=== PATIENT | female | born 1950 | race Caucasian/White ===

== ENCOUNTER 2019-06-04 05:56 | Inpatient (IN) ==
--- NOTE | 2019-05-23 10:27 | PAT Medication Instructions ---
Medication Instructions Date of Service May 23, 2019 Home Medications dicyclomine 20 mg PO DAILY PRN lorazepam [Ativan] 1 mg PO Q8H PRN aspirin [Aspir-81] 81 mg PO QAM gabapentin 300 mg PO TID losartan 25 mg PO QAM meclizine 12.5 mg PO BID PRN metoprolol succinate 50 mg PO QAM pantoprazole [Protonix] 40 mg PO BID sertraline [Zoloft] 50 mg PO QAM simvastatin 20 mg PO HS Citrucel (sucrose) 1 tbsp PO QAM DO NOT take the morning of surgery dicyclomine 20 mg PO DAILY PRN losartan 25 mg PO QAM Citrucel (sucrose) 1 tbsp PO QAM Take morning of surgery With a small sip of water, OTHERWISE NOTHING TO EAT OR DRINK AFTER MIDNIGHT: lorazepam [Ativan] 1 mg PO Q8H PRN (if needed) gabapentin 300 mg PO TID meclizine 12.5 mg PO BID PRN (if needed) metoprolol succinate 50 mg PO QAM pantoprazole [Protonix] 40 mg PO BID sertraline [Zoloft] 50 mg PO QAM Take evening before surgery dicyclomine 20 mg PO DAILY PRN (if needed) lorazepam [Ativan] 1 mg PO Q8H PRN (if needed) gabapentin 300 mg PO TID meclizine 12.5 mg PO BID PRN (if needed) pantoprazole [Protonix] 40 mg PO BID simvastatin 20 mg PO HS Other Notes If you have any questions please call us at [phone] or [phone] or [phone] or [phone]
--- NOTE | 2019-05-23 10:33 | Anesthesiology Consultation ---
Date of Service May 23, 2019 Assessment & Plan (1) Encounter for pre-operative examination: Check BSG AM DOS Chart Review Chart Review: Acceptable Risk for Surgery and Patient seen in Pre Admission Testing Teaching & Discussion Pre-Anesthesia Teaching/Discussion Notes: Instructed NPO after midnight before surgery,except medications with 15 cc of water. Medication instructions provided according to the PAT guidelines. History Surgery Operation Date: 06/04/19 14:00 Proposed Procedures p L5-S1 Posterior Lumbar Interbody Fusion - Hermelindo Neves DO Height/Weight Height: 5 ft 4 in Weight: 77.4 kg Allergies Allergy/AdvReac Type Severity Reaction Status Date / Time latex Allergy Intermediate rash, Verified 05/23/19 10:45 blisters with "latex bandaids" Sulfa (Sulfonamide Allergy Intermediate rash Verified 05/23/19 10:32 Antibiotics) Quinolones Allergy Mild chest Verified 05/23/19 10:32 pain, nausea, vomiting, rash with cipro/ + tachycardia Iodinated Contrast- Oral and Allergy Unknown nausea, Verified 05/23/19 10:32 IV Dye vomiting, diarrhea ciprofloxacin [From Cipro] Allergy chest Verified 05/23/19 10:32 pain, nausea, vomiting, rash nickel Allergy redness, Verified 05/23/19 10:32 itching metals Allergy lip Uncoded 05/23/19 10:32 tingling with "metal in lipstick" per skin testing Additional Notes: *Surgeon/OR made aware of nickel allergy* Medications Home Medications Medication Instructions Recorded Confirmed Last Taken dicyclomine 20 mg PO DAILY PRN #0 06/16/09 05/21/19 Unknown lorazepam [Ativan] 1 mg PO Q8H PRN #0 06/16/09 05/21/19 10/04/18 22:00 aspirin [Aspir-81] 81 mg PO QAM #0 03/31/10 05/21/19 10/04/18 08:00 gabapentin 300 mg PO TID 06/24/18 05/21/19 10/05/18 07:00 losartan 25 mg PO QAM 06/24/18 05/21/19 10/04/18 08:00 meclizine 12.5 mg PO BID PRN 06/24/18 05/21/19 Unknown metoprolol succinate 50 mg PO QAM 06/24/18 05/21/19 10/05/18 07:00 pantoprazole [Protonix] 40 mg PO BID 06/24/18 05/21/19 10/05/18 07:00 sertraline [Zoloft] 50 mg PO QAM 06/24/18 05/21/19 10/05/18 07:00 simvastatin 20 mg PO HS 06/24/18 05/21/19 10/05/18 07:00 Citrucel (sucrose) 1 tbsp PO QAM 09/21/18 05/21/19 Unknown Past Medical History Medical History Dyslipidemia Anxiety Hypertension Chronic back pain RLE radiculopathy Colitis Depression GERD (gastroesophageal reflux disease) controlled Osteoarthritis Pre-diabetes Vertigo Exercise / Class Metabolic Activity III < 4 Walking/Shop/Light housework Past Family History Family History Mother Family history of diabetes mellitus Son Family history of diabetes mellitus Other Heart disease Past Surgical History Surgical History H/O: hysterectomy total History of back surgery multiple; most recent L5-S1 decompression: 10/05/18: Grade view 1, MAC#3, ETT 7.5 at [facility] History of cardiac cath 2013= no stents Hx of tubal ligation Past Anesthesia History No Hx of Anesthesia Complications and No Family Hx of Anesthesia Complications History of PONV No Hx of PONV and No Hx of Motion Sickness Social History Smoking Status: Former smoker Do You Dip or Chew Tobacco: No Smoking End Date: Quit 24+ years ago Hx Alcohol Use: No Hx Substance Use: No Review of Systems URI symptoms improving. Patient denies chest pain, shortness of breath, cough, wheezing, palpitations. Physical Exam Vital Signs VITALS BP 152/62 P 54 TEMP 98.3 SP02 93%RA RESP 20 PHYSICAL Full neck and c-spine range of motion. Full TMJ range of motion. TMD 3 finger breaths Mallampati Score 2 Dentition: full dentures upper; missing lower molars Lungs: clear throughout to auscultation Cardiac: regular rate and rhythm, no murmurs noted Spine: normal Carotid arteries: negative bruit Extremities: no edema Testing Laboratory Results 05/23/19 10:46 05/23/19 10:46 PT 10.7 Seconds (9.0-12.0) 05/23/19 10:46 INR 1.0 (0.9-1.1) 05/23/19 10:46 APTT 23.4 Seconds (21.0-31.0) 05/23/19 10:46 Blood Type O Positive 05/23/19 10:46 Antibody Screen NEGATIVE 05/23/19 10:46 Electrocardiogram Date: 09/22/18 Findings: + SB @ (58) Chest X-Ray Date: 09/22/18 Findings: + NAD Echocardiogram Date: 12/16/16 LVEF 59%. No RWMA. Mild AR. Mild MR. Grade I DD. Stress Test Date: 10/02/14 Type: exercise Stress ECHO positive for inducible ischemia. Inducible HK of mid/apical whit[place]. Ischemic EKG changes. EF 55-60%. Grade I DD. Moderate AR. Mild MR. 7.0 METS. 92% MPHR. (subsequent cardiac cath done 10/11/14) Cardiac Catheterization Date: 10/11/14 Coronary arteries are angiographically normal. The tortuosity of the coronary arteries are suggestive of hypertensive heart disease. LVEF 50-70%. Medical management and better BP control recommended.
[2019-05-23 12:28] LABS: Basophils # (auto) 0.02 K/uL (0-0.2); Basophils % (auto) 0.2 %; Eosinophils # (auto) 0.15 K/uL (0-0.5); Eosinophils % (auto) 1.9 %; Hematocrit (blood only) 38.1 % (37-47); Hemoglobin 12.1 g/dL (12.0-16.0); Immature Granulocytes # (auto) 0.04 K/uL (0.00-0.02); Immature Granulocytes % (auto) 0.5 %; Lymphocytes # (auto) 1.61 K/uL (1.2-3.4); Mean Corpuscular Hgb Conc 31.8 g/dL (32-36); Mean Corpuscular Volume 84.7 fL (80-100); Mean Platelet Volume 11.5 fL (7.4-10.4); Monocytes # (auto) 0.69 K/uL (0.11-0.59); Monocytes % (auto) 8.6 %; Neutrophils # (auto) 5.55 K/uL (1.4-6.5); Neutrophils % (auto) 68.8 %; Platelet Count 136 K/uL (130-400); RDW Coefficient of Variation 14.6 % (11.5-14.5); RDW Standard Deviation 45.8 fL (36.4-46.3); White Blood Count 8.06 K/uL (4.8-10.8)
[2019-05-23 12:46] LABS: Partial Thromboplastin Ratio 0.9; Partial Thromboplastin Time 23.4 Seconds (21.0-31.0); Prothrombin Time 10.7 Seconds (9.0-12.0)
[2019-05-23 13:34] LABS: BUN Creatinine Ratio 17.1 (10-20); Calcium 8.5 mg/dl (8.5-10.1); Creatinine Clr Calc Pharmacy 58.9 ml/min; Est GFR (African American) 74.2; Potassium 4.2 mmol/L (3.5-5.1)
[2019-06-04] MEDS ORDERED: LR 15ML/HR IV SCH (06:00)
[2019-06-04] MEDS ORDERED: ACETAMINOPHEN 1000 MG/100 ML IV IV SCH (06:00)
[2019-06-04] MEDS ORDERED: SODIUM CHLORIDE 0.9% 1,000 ML IV SCH (06:00)
[2019-06-04] MEDS ORDERED: CEFAZOLIN 2000MG 2,000 MG/15 ML SYR IV SCH (06:00)
[2019-06-04] MEDS ORDERED: PROPOFOL IV EMULSION 10 MG/ML 20 ML VIAL IV ONE (06:49)
[2019-06-04] MEDS ORDERED: fentaNYL citrate 100 MCG/2 ML VIAL ONE (06:49)
[2019-06-04] MEDS ORDERED: LIDOCAINE HCL 2% 2 ML VIAL/AMP(20MG/ML) INFIL ONE (06:49)
[2019-06-04] MEDS ORDERED: MoRPHine SULFATE PF 1 MG/ML 10 ML AMP/VIAL ONE (06:49)
[2019-06-04] MEDS ORDERED: MIDAZOLAM HCL 1 MG/ML 2ML VIAL ONE (06:49)
[2019-06-04] MEDS ORDERED: ONDANSETRON INJ 2 MG/ML 2 ML VIAL ONE (06:49)
[2019-06-04] MEDS ORDERED: VANCOMYCIN HCL 1000MG/20ML VIAL ONE (06:55)
[2019-06-04] MEDS ORDERED: GELATIN SPONGE SZ 100 ONE (06:55)
[2019-06-04] MEDS ORDERED: THROMBIN FOR SOLN 20000 UNIT KIT ONE (06:55)
[2019-06-04] MEDS ORDERED: BUPIVACAINE/EPINEPHRINE 0.5% MPF 1:200,000 30 ML VIAL ONE ×2 (06:55→07:06)
[2019-06-04] MEDS ORDERED: BACITRACIN INJ 50,000 UNIT VIAL ONE (06:56)
[2019-06-04] MEDS ORDERED: KETAMINE HCL INJ 50 MG/ML 10 ML VIAL ONE (07:01)
--- NOTE | 2019-06-04 07:11 | History & Physical Bridge Note ---
Date of Service June 04, 2019 History & Physical Bridge Note I have examined the patient, reviewed the History & Physical and in the interval since the performance of the History & Physical I have noted the following changes of clinical significance: no changes noted
[2019-06-04] MEDS ORDERED: HYDROmorphone INJ 1 MG/ML SYRINGE IV PRN (07:42)
[2019-06-04] MEDS ORDERED: ePHEDrine sulfate 50 MG/ML AMP IV PRN (07:42)
[2019-06-04] MEDS ORDERED: fentaNYL citrate 100 MCG/2 ML VIAL IV PRN (07:42)
[2019-06-04] MEDS ORDERED: ONDANSETRON INJ 2 MG/ML 2 ML VIAL IV PRN (07:42)
[2019-06-04] MEDS ORDERED: ATROPINE SULFATE 0.1 MG/ML 10ML SYR IV PRN (07:42)
[2019-06-04] MEDS ORDERED: NEOSTIGMINE METHYLSULFATE 5 MG/5 ML SYR ONE (08:10)
[2019-06-04] MEDS ORDERED: GLYCOPYRROLATE 0.2 MG/ML VIAL ONE (08:10)
--- NOTE | 2019-06-04 09:42 | Fluoroscopy Report ---
FL spine 1V any level CLINICAL HISTORY: L5-S1 PSF AND INTERBODY COMPARISON STUDY: 10/05/2018 FLUOROSCOPY TIME: 9 seconds. NUMBER OF FLUOROSCOPIC IMAGES: 1 FINDINGS: A single intraoperative lateral fluoroscopic spot film of the lumbar spine is provided for interpretation. There are posterior skin retractors. There is a sponge marker visualized posteriorly. There are postsurgical changes of an L5-S1 discectomy and interbody fusion. There are L5 and S1 pedi juan screws. IMPRESSION: Intraoperative fluoroscopic spot image as described above. Electronically signed by: Qamar Miller M.D. 06/04/2019 9:41 AM
--- NOTE | 2019-06-04 10:04 | Post Operative Brief Note ---
PG Immediate Post Op with CF Date of Surgery June 04, 2019 Pre & Post Diagnosis Operation Date: 06/04/19 07:30 Pre-Op Diagnosis: Disc Herniation Post-Op Diagnosis: Disc Herniation Procedure Operation Date: 06/04/19 07:30 Actual Procedures p L5-S1 Posterior Lumbar Interbody Fusion(Not Applicable) - Hermelindo Neves DO Surgeon Hermelindo Neves DO Supervisor Agency Appointments raimundo Estimated Blood Loss 150 Findings Consistent with Post-Op Diagnosis Specimens Specimen Description: none Drains Elizabeth Catheter and Hemovac Drain Disposition Accompanied Patient To Recovery: Yes Overlapping Procedure I was immediately available: during the entire case.
--- NOTE | 2019-06-04 10:24 | Operative Report ---
Post Operative Report Pre & Post Diagnosis Operation Date: 06/04/19 07:30 Pre-Op Diagnosis: Disc Herniation Post-Op Diagnosis: Disc Herniation Procedure Operation Date: 06/04/19 07:30 Actual Procedures p L5-S1 Posterior Lumbar Interbody Fusion(Not Applicable) - Hermelindo Neves DO Surgeon Hermelindo Neves DO Exhibits Manager raimundo Estimated Blood Loss 150 Findings Consistent with Post-Op Diagnosis Specimens none Complications none Description of Procedure PLIF L5-S1 I attest to the content of the Intraoperative Record and any orders documented therein. Any exceptions are noted below.
--- NOTE | 2019-06-04 10:51 | Anesthesiology Progress Note ---
Date of Service June 04, 2019 Anesthesia Post Procedure Vital Signs Vital Signs: Temp Pulse Pulse Resp BP BP Pulse Ox 06/04/19 10:40 70 14 148/54 H 100 06/04/19 10:30 71 16 139/55 L 100 06/04/19 10:20 77 19 146/66 H 100 06/04/19 10:13 36.2 C L 86 19 133/61 97 06/04/19 07:12 36.5 C 60 20 171/71 H 96 Pain Intensity Lower Back: Pain Intensity: 5 Transfer of Care Handoff Completed per policy Notes Mental Status: alert / awake / arousable and participated in evaluation Patient Amnestic to Procedure: Yes Nausea / Vomiting: adequately controlled Pain: adequately controlled Airway Patency, RR, SpO2: stable & adequate BP & HR: stable & adequate Hydration State: stable & adequate Anesthetic Complications: no major complications apparent and Pt Satisfied with anesthetic care
[2019-06-04] MEDS ORDERED: MAGNESIUM HYDROXIDE SUSP 30 ML UDC PO PRN (11:20)
[2019-06-04] MEDS ORDERED: NALOXONE HCL 0.4 MG/1 ML VIAL/CARP IV PRN (11:20)
[2019-06-04] MEDS ORDERED: BISACODYL 10 MG SUPP PR PRN (11:20)
[2019-06-04] MEDS ORDERED: DO NOT ADMINISTER PNEUMOCOCCAL VACCINE PRN (11:20)
[2019-06-04] MEDS ORDERED: SODIUM CHLORIDE 0.9% 1000ML 1,000 ML IV SCH (11:20)
[2019-06-04] MEDS ORDERED: ACETAMINOPHEN 500 MG TAB PO PRN (11:20)
[2019-06-04] MEDS ORDERED: DICYCLOMINE HCL 20 MG TAB PO PRN (11:20)
[2019-06-04] MEDS ORDERED: LORazepam 0.5 MG/1 ML VIAL IV PRN (11:20)
[2019-06-04] MEDS ORDERED: DO NOT ADMINISTER FLU VACCINE PRN (11:20)
[2019-06-04] MEDS ORDERED: MECLIZINE 12.5 MG TAB PO PRN (11:20)
[2019-06-04] MEDS ORDERED: PROMETHAZINE HCL 12.5 MG in SODIUM CHLORIDE 0.9% 50 ML IV PRN (11:20)
[2019-06-04] MEDS ORDERED: SOD PHOSPHATE/SOD BIPHOSPHATE ENEMA 132 ML BTL PR PRN (11:20)
[2019-06-04] MEDS ORDERED: METOCLOPRAMIDE HCL INJ 5 MG/ML 2 ML VIAL IV PRN (11:20)
[2019-06-04] MEDS ORDERED: HYDROmorphone INJ 0.5 MG/0.5 ML SYR IV PRN (11:20)
[2019-06-04] MEDS ORDERED: ACETAMINOPHEN 1,000 MG/100 ML VIAL IV PRN (11:20)
[2019-06-04] MEDS ORDERED: ONDANSETRON 4 MG TAB PO PRN (11:20)
[2019-06-04] MEDS: OXYCODONE HCL IR 5 MG TAB (IMMEDIATE RELEASE) PO PRN ×3 (13:33→23:48)
[2019-06-04] MEDS ORDERED: OXYCODONE HCL IR 5 MG TAB (IMMEDIATE RELEASE) ONE (13:33)
[2019-06-04] MEDS: GABAPENTIN 300 MG CAP PO SCH ×2 (13:34→20:24)
[2019-06-04] MEDS: CEFAZOLIN 2000MG 2,000 MG/15 ML SYR IV SCH ×2 (15:45→23:48)
[2019-06-04] MEDS: DOCUSATE SODIUM/SENNA 50/8.6MG TAB PO SCH (20:25)
[2019-06-04] MEDS: PANTOprazole 40 MG TAB PO SCH (20:25)
[2019-06-04] MEDS: SIMVASTATIN 20 MG TAB PO SCH (20:25)
[2019-06-05] MEDS: OXYCODONE HCL IR 5 MG TAB (IMMEDIATE RELEASE) PO PRN ×2 (03:50→08:14)
[2019-06-05] MEDS: POLYETHYLENE (MIRALAX) 17 GM PACK PO SCH ×4 (05:37→23:39)
[2019-06-05] MEDS: METOPROLOL SUCC 50MG EXT REL TAB PO SCH (08:15)
[2019-06-05] MEDS: SERTRALINE HCL 100 MG TABLET PO SCH (08:15)
[2019-06-05] MEDS: GABAPENTIN 300 MG CAP PO SCH ×3 (08:15→20:49)
[2019-06-05] MEDS: PSYLLIUM 58.6% POWDER PACKET PO SCH (08:16)
[2019-06-05] MEDS: LOSARTAN POTASSIUM 25 MG TAB PO SCH (08:16)
[2019-06-05] MEDS: ASPIRIN 81 MG ECTAB PO SCH (08:16)
[2019-06-05] MEDS: PANTOprazole 40 MG TAB PO SCH ×2 (08:16→20:49)
[2019-06-05] MEDS: ONDANSETRON INJ 2 MG/ML 2 ML VIAL IV PRN ×2 (10:44→17:20)
--- NOTE | 2019-06-05 14:20 | Orthopedic Progress Note ---
Date of Service June 05, 2019 Subjective Patient alert and oriented. Minimal complaints of pain. Taking p.o. Results & Data Vital Signs (Past 12 Hours) Vital Signs Temp Pulse Resp BP BP Pulse Ox 06/05/19 12:45 90 06/05/19 11:35 111/67 06/05/19 11:04 36.4 C L 68 18 103/63 93 06/05/19 10:46 74 20 95/58 L 92 06/05/19 07:24 37.4 C 84 16 119/69 96 06/05/19 03:19 37.2 C 81 16 116/69 91 PG Care Time/CCT Total # of Minutes Spent Total Time Spent with Patient: Total time spent is greater than 50% in coordination of care (as documented) at patient's floor/unit and/or counseling patient:
[2019-06-05] MEDS: SIMVASTATIN 20 MG TAB PO SCH (20:50)
[2019-06-05] MEDS: DOCUSATE SODIUM/SENNA 50/8.6MG TAB PO SCH (20:50)
[2019-06-06] MEDS: POLYETHYLENE (MIRALAX) 17 GM PACK PO SCH ×4 (05:58→23:37)
[2019-06-06] MEDS: OXYCODONE HCL IR 5 MG TAB (IMMEDIATE RELEASE) PO PRN ×3 (07:17→23:39)
[2019-06-06] MEDS: SERTRALINE HCL 100 MG TABLET PO SCH (07:33)
[2019-06-06] MEDS: GABAPENTIN 300 MG CAP PO SCH ×3 (07:33→20:20)
[2019-06-06] MEDS: LOSARTAN POTASSIUM 25 MG TAB PO SCH (07:34)
[2019-06-06] MEDS: ASPIRIN 81 MG ECTAB PO SCH (07:34)
[2019-06-06] MEDS: PANTOprazole 40 MG TAB PO SCH ×2 (07:34→20:20)
[2019-06-06] MEDS: PSYLLIUM 58.6% POWDER PACKET PO SCH (07:35)
[2019-06-06] MEDS: METOPROLOL SUCC 50MG EXT REL TAB PO SCH (07:36)
--- NOTE | 2019-06-06 08:11 | Discharge Summary ---
SUBJECTIVE: She is alert, oriented this morning. Moderate complaints of pain, no chest pain, shortness of breath. She has more incisional back pain. No neurological deficit. The neurological deficit has been alleviated. OBJECTIVE: Vital signs stable. ASSESSMENT: Status post reconstructive spine surgery. PLAN: We will discharge her home later today. She has medications on her chart for [place] and a rolling walker, also some Toradol. She was given instruction precautions here today morning. She has instructions from the office, should see us back in the office in approximately 12 days.
[2019-06-06] MEDS: DOCUSATE SODIUM/SENNA 50/8.6MG TAB PO SCH (20:19)
[2019-06-06] MEDS: SIMVASTATIN 20 MG TAB PO SCH (20:20)
[2019-06-07] MEDS: POLYETHYLENE (MIRALAX) 17 GM PACK PO SCH ×2 (05:30→11:52)
[2019-06-07] MEDS: PSYLLIUM 58.6% POWDER PACKET PO SCH (08:17)
[2019-06-07] MEDS: SERTRALINE HCL 100 MG TABLET PO SCH (08:21)
[2019-06-07] MEDS: ASPIRIN 81 MG ECTAB PO SCH (08:21)
[2019-06-07] MEDS: METOPROLOL SUCC 50MG EXT REL TAB PO SCH (08:21)
[2019-06-07] MEDS: LOSARTAN POTASSIUM 25 MG TAB PO SCH (08:21)
[2019-06-07] MEDS: OXYCODONE HCL IR 5 MG TAB (IMMEDIATE RELEASE) PO PRN (08:22)
[2019-06-07] MEDS: GABAPENTIN 300 MG CAP PO SCH ×2 (08:22→13:31)
[2019-06-07] MEDS: PANTOprazole 40 MG TAB PO SCH (08:22)
--- NOTE | 2019-06-07 12:56 | Operative Report ---
DATE OF OPERATION: 06/04/2019 PREOPERATIVE DIAGNOSIS: Degenerative disc disease L5-S1, disc herniation L5-S1, recurrent. POSTOPERATIVE DIAGNOSIS: Degenerative disc disease L5-S1, disc herniation L5-S1, recurrent. PROCEDURES: Include: 1. Posterior approach lumbar spine, decompression laminectomy, removal of the L5 lamina, foraminotomy, partial facetectomy. 2. Complete discectomy at L5-S1 and a posterior lumbar interbody fusion, L5-S1. 3. Pedicle screw instrumentation, L5-S1. 4. Posterolateral fusion, L5-S1. SURGEON: Hermelindo Neves DO DCS ENGINEER: Alejandro Maya PA-C. COMPLICATIONS: There were no complications. DESCRIPTION OF PROCEDURE: The patient was identified in the preop holding area and the incision site marked. A bridge note was also obtained. The patient was safely brought into the operating room. A general intubated anesthetic provided to the patient. Elizabeth catheter administered as well. She was placed prone, scrubbed, prepped and draped sterile. I made a skin incision, fascial incision, put in deep self-retaining retractor. We carefully meticulously dissected out the dural structures. I was able to find on the right hand side the recurrent disc herniation. I retracted the S1 nerve root and dura in a medial direction. We could see the entire disc herniation. This was excised first with a 15 scalpel blade, various sized pituitary rongeurs. We completely evacuated the L5-S1 disc. I was then able to get pedicle screws safely into L5 and sacrum on the left and L5 and sacrum on the right. We also then were able to put an interbody device at L5-S1 on the right hand side, packed with bone. The cross table lateral radiographs were satisfactory. We did some compression locked down the screws. We then irrigated thoroughly, placed some bone graft out of the transverse processes between L5 and S1. We placed some Gelfoam over the dural structures, placed some vancomycin powder deep, closed fascia to fascia with 1 Vicryl suture, more vancomycin powder, 2-0 Vicryl closure on the subcuticular layer, and 3-0 nylon on the skin surface. Sterile dressings applied. The patient returned supine and extubated. The patient returned safely to recovery room in satisfactory and stable condition. There were no complications. ESTIMATED BLOOD LOSS: 150 mL. IMPLANTS USED: By the [employer]. Bone graft used was autograft from the patient's own bone and lamina structures morcellized along with demineralized bone matrix. Sponge and needle count correct. No complications. I attest to the content of the Intraoperative Record and any orders documented therein. Any exception s are noted below.
--- NOTE | 2019-06-15 10:40 | History and Physical Report ---
DATE OF ADMISSION: 06/04/2019 I was ____ to do an H and P. I think it was been done because we operated on her and we cannot get the patient back to surgery without an H and P, so there might be some sort of mistake. She is listed as Lexii, but goes by K, so there may be some name discrepancy. In any event, I am dictating over. CHIEF COMPLAINT: Back pain, lower extremity difficulty, paresthesias, numbness and tingling. HISTORY OF PRESENT ILLNESS: The patient is delightful. She is 69. She has ongoing back and lower extremity difficulty, paresthesias, associated weakness. She has a disk herniation lumbar spine with spinal instability. She is set up for fairly semi-urgent surgery. PAST MEDICAL HISTORY: Mitral valve prolapse, anxiety, high cholesterol, hypertension. PAST SURGICAL HISTORY: Hysterectomy, lumbar spine surgery. ALLERGIES: SULFA, CIPRO. SOCIAL HISTORY: . No alcohol, tobacco. REVIEW OF SYSTEMS: Twelve system review negative for fevers, sweats, chills. Ears, nose, and throat clear. No chest pain, palpitations. No nausea, vomiting. She has joint pain, musculoskeletal pain. MEDICATIONS: Numerous. They are scanned in the computer and listed. OBJECTIVE: GENERAL: She is 5 feet 3 inches, 171. VITAL SIGNS: Blood pressure 130/80, pulse 80, respiratory rate 16. HEENT: Pupils react to light and accommodation. Ear, nose and throat clear. CARDIAC: Normal S1, S2. ABDOMEN: Soft, nontender. Good bowel sounds. NEUROLOGIC: She has 5/5 strength, good sensation and motor ability on the left. Weakness and paresthesias on straight leg raising on right. Weakness with dorsiflexion, plantarflexion and pretty profound decreased range of motion. IMAGING: X-rays demonstrate instability and disk herniation lumbar spine. PROCEDURE: Posterior lumbar interbody fusion, lumbar spine.
== END 2019-06-07 14:16 | disposition home health service (06) | DRG 455 ==
LOC: ASU 05:56 → 3E 10:17

== ENCOUNTER 2019-08-06 18:57 | Inpatient (IN) ==
[2019-08-06] MEDS ORDERED: SODIUM CHLORIDE 0.9% 1000ML 1,000 ML IV ONE (19:48)
[2019-08-06] MEDS ORDERED: ACETAMINOPHEN 1,000 MG/100 ML VIAL IV STA (19:54)
[2019-08-06] MEDS ORDERED: FAMOTIDINE 20MG IV PUSH 20 MG/5 ML SYR IV STA (19:54)
[2019-08-06] MEDS ORDERED: MoRPHine SULFATE 10 MG/ML CARP/VIAL IV STA (19:54)
--- NOTE | 2019-08-06 20:29 | XRay Report ---
XR chest 1V portable CLINICAL HISTORY: 69 years-old Female presenting with abd pain, GIB. TECHNIQUE: Portable upright AP view of the chest was obtained. COMPARISON: 09/22/2018. FINDINGS: Atherosclerosis of the aortic arch. Cardiac silhouette enlarged. No focal opacity. No large effusion or pneumothorax. Osseous structures normal. Upper abdomen normal. IMPRESSION: 1. Cardiomegaly. No other convincing evidence of acute cardiopulmonary disease. Electronically signed by: Caleb Carver M.D. 08/06/2019 8:27 PM
[2019-08-06 20:30] LABS: Mean Corpuscular Hgb Conc 31.3 g/dL (32-36)
[2019-08-06 20:43] LABS: INR 1.1 (0.9-1.1); Prothrombin Time 11.3 Seconds (9.0-12.0)
[2019-08-06 20:51] LABS: iSTAT Creatinine 0.9 mg/dl (0.6-1.3); iSTAT Hemoglobin 11.2 g/dl (12.0-16.0); iSTAT Ionized Calcium 1.14 mmol/l (1.12-1.32); iSTAT Potassium 3.8 mEq/L (3.3-5.0)
[2019-08-06 20:53] LABS: Appearance Urine Cloudy (Clear); Bacteria Urine Automated Negative (Negative); Blood Urine 1+ (Negative); Epithelial Cell Urine Auto >30 /lpf (0-5); Glucose Urine UA Negative (Negative); Ketones Urine 1+ (Negative); Leukocyte Esterase Urine Trace (Negative); Nitrite Urine Positive (Negative); Protein Urine 1+ (Negative); Specific Gravity Urine 1.028 (1.000-1.030); Urobilinogen Urine Negative (Negative)
[2019-08-06 20:57] LABS: Bilirubin Urine Negative (Negative); Color Urine Amber; Ictotest Urine Negative (Negative)
[2019-08-06 20:59] LABS: Hematocrit (blood only) 35.2 % (37-47); Mean Corpuscular Hemoglobin 24.2 pg (25-34); Mean Corpuscular Volume 77.5 fL (80-100); RDW Coefficient of Variation 14.9 % (11.5-14.5); RDW Standard Deviation 42.4 fL (36.4-46.3); Red Blood Count 4.54 M/uL (4.2-5.4); White Blood Count 16.69 K/uL (4.8-10.8)
[2019-08-06 21:11] LABS: Alanine Aminotransferase 17 U/L (12-78); Albumin Level 3.7 gm/dl (3.4-5.0); Aspartate Aminotransferase 13 U/L (15-37); BUN Creatinine Ratio 13.9 (10-20); Blood Urea Nitrogen 14 mg/dl (7-18); Calcium 9.2 mg/dl (8.5-10.1); Carbon Dioxide 23 mmol/L (21-32); Chloride 102 mmol/L (98-107); Creatinine Clr Calc Pharmacy 52.2 ml/min; Est GFR (African American) 64.7; Est GFR (Non-African American) 55.8; Glucose 147 mg/dl (70-99); Lipase 31 U/L (73-393); Magnesium 1.8 mg/dl (1.8-2.4); Potassium 3.6 mmol/L (3.5-5.1); Sodium 135 mmol/L (136-145)
[2019-08-06 21:16] LABS: Alkaline Phosphatase 97 U/L (45-117); Bilirubin,Total 1.7 mg/dl (0.2-1); Globulin 3.7 gm/dl (2.5-4.0); Phosphorus 1.9 mg/dl (2.5-4.9); Total Protein 7.4 gm/dl (6.4-8.2); Troponin I < 0.015 ng/ml (0-0.045)
[2019-08-06] MEDS ORDERED: IOVERSOL 100ml IV PRN (21:17)
[2019-08-06] MEDS ORDERED: methylPREDNISolone 125 MG/2 ML VIAL IV STA (21:28)
[2019-08-06] MEDS ORDERED: DiphenhydrAMINE HCL 50 MG/ML VIAL IV STA (21:28)
--- NOTE | 2019-08-06 22:13 | CT Scan Report ---
CT abd pelvis IV con only CLINICAL HISTORY: 69 years-old Female presenting with abd pain, hematochezia. TECHNIQUE: Multidetector CT of the abdomen and pelvis was performed after the administration of intra venous contrast. IV contrast: 92 mL of Optiray 320. One or more dose lowering techniques were used co nsistent with the principles of ALARA (as low as reasonably achievable), including automatic exposure control, mA or kV adjustment to individual patient size, and/or use of iterative reconstruction. COMPARISON: 06/24/2018. CT DOSE (mGy.cm): The estimated cumulative dose is 604.20 mGy.cm. FINDINGS: Relocation Commissioner topogram: Orthopedic hardware. Lung bases: Normal heart size. No pericardial or pleural effusion. Minimal dependent changes likely a telectasis. Liver: Normal morphology. Peripherally nodular enhancing lesion in the posterior right hepatic lobe l ikely hepatic hemangioma, measuring over 5 cm in diameter. Patent hepatic vasculature. Biliary: No intrahepatic or extrahepatic biliary ductal dilatation. Normal gallbladder. Pancreas: Normal. Spleen: Normal. Adrenal glands: Normal. Kidneys and ureters: Normal. No hydronephrosis. Bladder: Normal. Pelvic organs: Uterus surgically absent. Bowel: Mild diverticulosis of the distal sigmoid colon. Focal wall thickening of the proximal to mid sigmoid colon extending proximal to the level of the splenic flexure. Mild pericolonic inflammatory c hange. The remainder of the colon is preserved. The appendix is normal. No bowel obstruction. Peritoneal cavity: Trace free fluid in the left lower quadrant. No free intraperitoneal or extralumin al gas. Lymph nodes: No enlarged lymph nodes in the abdomen or pelvis. Vasculature: Atherosclerosis of the normal caliber abdominal aorta. IVC patent. Abdominal wall: Normal. Musculoskeletal: Posterior lumbar fusion hardware. IMPRESSION: 1. Extensive wall thickening and mild pericolonic inflammatory change involving the splenic flexure to the mid sigmoid colon. This is evidence of colitis, likely on an infectious basis given the distri bution. 2. Diverticulosis coli of the distal sigmoid colon. No evidence of diverticulitis. 3. Right hepatic lobe hemangioma measuring over 5 cm. Electronically signed by: Caleb Carver M.D. 08/06/2019 10:11 PM
[2019-08-06 22:46] LABS: Platelet Estimate Normal (Normal)
[2019-08-06] MEDS ORDERED: POTASSIUM PHOS 3 MMOL/1 ML INFUSION IV STA (23:14)
[2019-08-06] MEDS ORDERED: POTASSIUM PHOSPHATE 9 MMOL in SODIUM CHLORIDE 0.9% 250 ML IV STA (23:18)
--- NOTE | 2019-08-07 00:02 | Emergency Department Note ---
Entered by Lana Shrestha acting as a scribe for History of Present Illness General Chief complaint: Diarrhea Stated complaint: DIARRHEA,BLEEDING,CRAMPING Time Seen by Provider: 08/06/19 19:44 Source: patient History of Present Illness Provider complaint: Diarrhea Onset (ago): day(s) 1 Location: abdomen Radiation: non-radiation Maximum Pain Intensity: 8 Relieved By: + none Exacerbated By: + none The patient is a 69 year old female who presents to the Emergency Room with complaints of diarrhea that began last night. The patient states the symptoms do not radiate anywhere else on the body and is not relieved nor exacerbated by anything specific. The patient reports noticing blood and more recently black in her diarrhea. The patient mentioned that she had back surgery 4 months ago and has not recently been on antibiotics. Home Medications Home Medications Medication Instructions Recorded Confirmed Type dicyclomine 20 mg PO DAILY PRN #0 06/16/09 08/06/19 History lorazepam [Ativan] 1 mg PO Q8H PRN #0 06/16/09 08/06/19 History aspirin [Aspir-81] 81 mg PO QAM #0 03/31/10 08/06/19 History gabapentin 300 mg PO TID 06/24/18 08/06/19 History losartan 25 mg PO QAM 06/24/18 08/06/19 History meclizine 12.5 mg PO BID PRN 06/24/18 08/06/19 History metoprolol succinate 50 mg PO QAM 06/24/18 08/06/19 History pantoprazole [Protonix] 40 mg PO BID 06/24/18 08/06/19 History sertraline [Zoloft] 50 mg PO QAM 06/24/18 08/06/19 History simvastatin 20 mg PO HS 06/24/18 08/06/19 History Citrucel (sucrose) 1 tbsp PO QAM 09/21/18 08/06/19 History hydrocodone-acetaminophen [[place]] 1 tab PO Q6H PRN #40 tab 06/05/19 08/06/19 Rx ketorolac 10 mg PO Q8H PRN 08/06/19 08/06/19 History Allergies Allergy/AdvReac Type Severity Reaction Status Date / Time ciprofloxacin [From Cipro] Allergy Intermediate chest Verified 08/06/19 22:57 pain, nausea, vomiting, rash Iodinated Contrast Media Allergy Intermediate nausea, Verified 08/06/19 22:57 vomiting, diarrhea latex Allergy Intermediate rash, Verified 08/06/19 22:57 blisters with "latex bandaids" Quinolones Allergy Intermediate chest Verified 08/06/19 22:57 pain, nausea, vomiting, rash with cipro/ + tachycardia nickel Allergy Mild redness, Verified 08/06/19 22:57 itching Sulfa (Sulfonamide Allergy Mild rash Verified 08/06/19 22:57 Antibiotics) metals Allergy Severe lip Uncoded 08/06/19 22:57 tingling with "metal in lipstick" per skin testing Past Med/Surg History Medical History Dyslipidemia Anxiety Hypertension Chronic back pain RLE radiculopathy Colitis Depression GERD (gastroesophageal reflux disease) controlled Osteoarthritis Pre-diabetes Vertigo Surgical History Hx of cataract surgery (Acute) bilateral H/O: hysterectomy total History of back surgery multiple; most recent L5-S1 decompression: 10/05/18: Grade view 1, MAC#3, ETT 7.5 at [facility] History of cardiac cath 2013= no stents Hx of tubal ligation Family History Mother Family history of diabetes mellitus Son Family history of diabetes mellitus Other Heart disease Social History Preferred Language: Macedonian Communication Ability: Effective Silver Solderer Required: No Beliefs That Will Affect Care: None Current Living Situation: Spouse Current Living Situation Comment: [facility] Feels Safe at Home: Yes Safety Concerns: Feels Safe At This Time Smoking Status: Never smoker Second Hand Exposure: No ; Hx Alcohol Use: No Hx Substance Use: No Review of Systems See HPI for pertinent positives & negatives. and A total of 10 systems reviewed and were otherwise negative Physical Exam Vital Signs Vital Signs - 24 hr 08/06/19 19:08 08/06/19 20:42 08/06/19 20:44 Temperature 36.9 C Temperature Source Oral Sepsis Recent Fever Within 48 Hours No Sepsis Action Taken by Nursing No Action Required Pulse Rate 89 Pulse Rate [Finger] 73 Respiratory Rate 18 18 Respiratory Effort / Characteristics Non-Labored Respiratory Depth Normal Blood Pressure 153/76 H Blood Pressure [Left Arm] 165/64 H Blood Pressure Mean 101 Blood Pressure Mean [Left Arm] 97 Pulse Oximetry 98 99 99 Oxygen Delivery Method Room Air Room Air Room Air 08/06/19 22:53 Temperature Temperature Source Sepsis Recent Fever Within 48 Hours Sepsis Action Taken by Nursing Pulse Rate Pulse Rate [Finger] 64 Respiratory Rate 18 Respiratory Effort / Characteristics Respiratory Depth Blood Pressure Blood Pressure [Left Arm] 132/61 Blood Pressure Mean Blood Pressure Mean [Left Arm] 84 Pulse Oximetry 96 Oxygen Delivery Method Room Air GENERAL: Awake, alert, uncomfortable-appearing, in no distress HENT: Normocephalic, atraumatic. Oropharynx with dry mucous membranes and otherwise unremarkable. EYES: Normal conjunctiva. Sclera non-icteric. NECK: Supple. No nuchal rigidity. FROM. No JVD. RESPIRATORY: CTAB CARDIAC: Regular rate, normal rhythm. Extremities warm and well perfused. Pulses equal. ABDOMEN: Soft, non-distended. Generalized abdominal tenderness. No rebound or guarding. No masses. RECTAL: Scant brown stool that is guaiac negative and no gross melena or red blood. . MUSCULOSKELETAL: Chest examination reveals no tenderness. The back is symmetrical on inspection without obvious abnormality. There is no CVA tenderness to palpation. No joint edema. LOWER EXTREMITIES: Calves are equal size bilaterally and non-tender. No edema. No discoloration. NEURO: Normal sensorium. No sensory or motor deficits noted. SKIN: No rash or jaundice noted. Course 1950: Past medical records reviewed. The patient was evaluated in room B08. A complete history and physical exam was performed. Administered Medications Lactated Ringer's (Lr) 1,000 mls @ 80 mls/hr IV .[id number] ONE Stop: 08/07/19 14:13 Last Admin: 08/07/19 02:43 Dose: 80 mls/hr Documented by: [id number] Potassium Phosphate 21 mmol/ (Sodium Chloride) 507 mls @ 88 mls/hr IV ONE ONE Stop: 08/07/19 07:45 Last Admin: 08/07/19 02:43 Dose: 88 mls/hr Documented by: [id number] Insulin Aspart (Novolog Flexpen) 0 units SC ACHS TARSHA Stop: 09/06/19 01:43 Last Admin: 08/07/19 02:46 Dose: 2 units Documented by: [id number] Cosigned by: [id number] Discontinued Medications Diphenhydramine HCl (Benadryl) 25 mg IV NOW STA Stop: 08/06/19 21:29 Last Admin: 08/06/19 21:31 Dose: 25 mg Documented by: [id number] Sodium Chloride (Nss 1000ml) 1,000 mls @ 999 mls/hr IV .Q1H1M ONE Stop: 08/06/19 20:48 Last Infusion: 08/06/19 21:49 Dose: 0 mls/hr Documented by: [id number] Admin: 08/06/19 20:39 Dose: 999 mls/hr Documented by: [id number] Famotidine (Pepcid 20mg Iv Push) 20 mg in 5 mls @ 2.5 mls/min IV NOW STA Stop: 08/06/19 19:55 Last Admin: 08/06/19 20:39 Dose: 2.5 mls/min Documented by: [id number] Acetaminophen (Ofirmev) 1,000 mg in 100 mls @ 400 mls/hr IV NOW STA Stop: 08/06/19 20:08 Last Infusion: 08/06/19 21:06 Dose: 0 mls/hr Documented by: [id number] Admin: 08/06/19 20:39 Dose: 400 mls/hr Documented by: [id number] Potassium Phosphate 9 mmol/ (Sodium Chloride) 253 mls @ 88 mls/hr IV NOW STA Stop: 08/07/19 02:10 Last Infusion: 08/07/19 02:36 Dose: 0 mls/hr Documented by: [id number] Admin: 08/06/19 23:41 Dose: 88 mls/hr Documented by: [id number] Ceftriaxone Sodium (Rocephin) 1,000 mg in 50 mls @ 100 mls/hr IV NOW STA Stop: 08/07/19 00:39 Last Infusion: 08/07/19 01:23 Dose: 0 mls/hr Documented by: [id number] Admin: 08/07/19 00:50 Dose: 100 mls/hr Documented by: [id number] Ioversol (Optiray 320 100ml) 93 ml IV ONCE PRN PRN Reason: Interaction Checking Stop: 08/10/19 21:16 Last Admin: 08/06/19 21:52 Dose: 93 ml Documented by: [id number] Methylprednisolone (Solumedrol) 125 mg IV NOW STA Stop: 08/06/19 21:29 Last Admin: 08/06/19 21:31 Dose: 125 mg Documented by: [id number] Metronidazole (Flagyl) Confirm Administered Dose 500 mg IV .STK-MED ONE Stop: 08/07/19 00:42 Last Admin: 08/07/19 01:02 Dose: 500 mg Documented by: [id number] Morphine Sulfate (Morphine Sulfate) 8 mg IV NOW STA Stop: 08/06/19 19:55 Last Admin: 08/06/19 20:39 Dose: 8 mg Documented by: [id number] Potassium Phosphate (Potassium Phosphate Replace) 9 mmol IV NOW STA Stop: 08/06/19 23:15 Last Admin: 08/06/19 23:41 Dose: Not Given Documented by: [id number] Medical Decision Making Differential Diagnosis Differential diagnosis: Etiologies such as esophagitis, variceal bleed, [place], [place] tear, gastritis, peptic ulcer disease, AVM, inflammatory bowel disease, ischemia, diverticulosis, colitis, malignancy, coagulopathy, thrombocytopenia, fissure, hemorrhoid, epistaxis , as well as others were entertained. Medical Records Attestation: I reviewed the patient's medical records. Home Medications Current Medication List: was personally reviewed by me Laboratory Data Attestation: I reviewed the patient's lab results. Result diagrams: 08/07/19 04:01 08/06/19 20:19 Lab Results 08/06/19 08/06/19 08/06/19 Range/Units 20:19 20:19 20:19 WBC 16.69 H (4.8-10.8) K/uL RBC 4.54 (4.2-5.4) M/uL Hgb 11.0 L (12.0-16.0) g/dL POC Hgb (12.0-16.0) g/dl Hct 35.2 L (37-47) % POC Hct (37-47) % MCV 77.5 L (80-100) fL MCH 24.2 L (25-34) pg MCHC 31.3 L (32-36) g/dL RDW Std Deviation 42.4 (36.4-46.3) fL RDW Coeff of Kandis 14.9 H (11.5-14.5) % Plt Count (130-400) K/uL MPV (7.4-10.4) fL Platelet Estimate Normal (Normal) PT 11.3 (9.0-12.0) Seconds INR 1.1 (0.9-1.1) POC Sodium (135-144) mEq/L Sodium 135 L (136-145) mmol/L POC Potassium (3.3-5.0) mEq/L Potassium 3.6 (3.5-5.1) mmol/L POC Chloride (101-112) mEq/L Chloride 102 (98-107) mmol/L Carbon Dioxide 23 (21-32) mmol/L POC Total CO2 (24-31) mEq/l Anion Gap 10.0 (3-11) POC Anion Gap (16-25) mmol/L POC BUN (7-18) mg/dl BUN 14 (7-18) mg/dl Creatinine 1.03 (0.6-1.2) mg/dl POC Creatinine (0.6-1.3) mg/dl Est Cr Clr Drug Dosing 52.2 ml/min Est GFR ( Amer) 64.7 Est GFR (Non-Af Amer) 55.8 BUN/Creatinine Ratio 13.9 (10-20) Glucose 147 H (70-99) mg/dl POC Glucose (other) (70-99) mg/dl Calcium 9.2 (8.5-10.1) mg/dl POC Ioniz Calcium Em[place] (1.12-1.32) mmol/l Phosphorus 1.9 L (2.5-4.9) mg/dl Magnesium 1.8 (1.8-2.4) mg/dl Total Bilirubin 1.7 H (0.2-1) mg/dl AST 13 L (15-37) U/L ALT 17 (12-78) U/L Alkaline Phosphatase 97 (45-117) U/L Troponin I < 0.015 (0-0.045) ng/ml Total Protein 7.4 (6.4-8.2) gm/dl Albumin 3.7 (3.4-5.0) gm/dl Globulin 3.7 (2.5-4.0) gm/dl Albumin/Globulin Ratio 1.0 (0.9-2) Lipase 31 L (73-393) U/L Urine Color Urine Appearance (Clear) Urine pH (4.5-7.5) Ur Specific [place] (1.000-1.030) Urine Protein (Negative) Urine Glucose (UA) (Negative) Urine Ketones (Negative) Urine Blood (Negative) Urine Nitrite (Negative) Urine Bilirubin (Negative) Urine Urobilinogen (Negative) Ur Leukocyte Esterase (Negative) Urine WBC (Auto) (0-5) /hpf Urine RBC (Auto) (0-4) /hpf U Hyaline Cast (Auto) (0-5) /lpf U Epithel Cells (Auto) (0-5) /lpf Urine Bacteria (Auto) (Negative) Blood Type Antibody Screen 08/06/19 08/06/19 08/06/19 Range/Units 20:19 20: 20:33 WBC (4.8-10.8) K/uL RBC (4.2-5.4) M/uL Hgb (12.0-16.0) g/dL POC Hgb (12.0-16.0) g/dl Hct (37-47) % POC Hct (37-47) % MCV (80-100) fL MCH (25-34) pg MCHC (32-36) g/dL RDW Std Deviation (36.4-46.3) fL RDW Coeff of Kandis (11.5-14.5) % Plt Count (130-400) K/uL MPV (7.4-10.4) fL Platelet Estimate (Normal) PT (9.0-12.0) Seconds INR (0.9-1.1) POC Sodium (135-144) mEq/L Sodium (136-145) mmol/L POC Potassium (3.3-5.0) mEq/L Potassium (3.5-5.1) mmol/L POC Chloride (101-112) mEq/L Chloride (98-107) mmol/L Carbon Dioxide (21-32) mmol/L POC Total CO2 (24-31) mEq/l Anion Gap (3-11) POC Anion Gap (16-25) mmol/L POC BUN (7-18) mg/dl BUN (7-18) mg/dl Creatinine (0.6-1.2) mg/dl POC Creatinine (0.6-1.3) mg/dl Est Cr Clr Drug Dosing ml/min Est GFR ( Amer) Est GFR (Non-Af Amer) BUN/Creatinine Ratio (10-20) Glucose (70-99) mg/dl POC Glucose (other) (70-99) mg/dl Calcium (8.5-10.1) mg/dl POC Ioniz Calcium Emili (1.12-1.32) mmol/l Phosphorus (2.5-4.9) mg/dl Magnesium (1.8-2.4) mg/dl Total Bilirubin (0.2-1) mg/dl AST (15-37) U/L ALT (12-78) U/L Alkaline Phosphatase (45-117) U/L Troponin I Cancelled (0-0.045) ng/ml Total Protein (6.4-8.2) gm/dl Albumin (3.4-5.0) gm/dl Globulin (2.5-4.0) gm/dl Albumin/Globulin Ratio (0.9-2) Lipase (73-393) U/L Urine Color [place] Urine Appearance Cloudy A (Clear) Urine pH 7.0 (4.5-7.5) Ur Specific [place] 1.028 (1.000-1.030) Urine Protein 1+ H (Negative) Urine Glucose (UA) Negative (Negative) Urine Ketones 1+ H (Negative) Urine Blood 1+ H (Negative) Urine Nitrite Positive A (Negative) Urine Bilirubin Negative (Negative) Urine Urobilinogen Negative (Negative) Ur Leukocyte Esterase Trace H (Negative) Urine WBC (Auto) 1-5 (0-5) /hpf Urine RBC (Auto) 5-10 H (0-4) /hpf U Hyaline Cast (Auto) 5-10 H (0-5) /lpf U Epithel Cells (Auto) >30 H (0-5) /lpf Urine Bacteria (Auto) Negative (Negative) Blood Type O Positive Antibody Screen NEGATIVE 08/06/19 Range/Units 20:36 WBC (4.8-10.8) K/uL RBC (4.2-5.4) M/uL Hgb (12.0-16.0) g/dL POC Hgb 11.2 L (12.0-16.0) g/dl Hct (37-47) % POC Hct 33 L (37-47) % MCV (80-100) fL MCH (25-34) pg MCHC (32-36) g/dL RDW Std Deviation (36.4-46.3) fL RDW Coeff of Kandis (11.5-14.5) % Plt Count (130-400) K/uL MPV (7.4-10.4) fL Platelet Estimate (Normal) PT (9.0-12.0) Seconds INR (0.9-1.1) POC Sodium 136 (135-144) mEq/L Sodium (136-145) mmol/L POC Potassium 3.8 (3.3-5.0) mEq/L Potassium (3.5-5.1) mmol/L POC Chloride 100 L (101-112) mEq/L Chloride (98-107) mmol/L Carbon Dioxide (21-32) mmol/L POC Total CO2 25 (24-31) mEq/l Anion Gap (3-11) POC Anion Gap 15.0 L (16-25) mmol/L POC BUN 12 (7-18) mg/dl BUN (7-18) mg/dl Creatinine (0.6-1.2) mg/dl POC Creatinine 0.9 (0.6-1.3) mg/dl Est Cr Clr Drug Dosing ml/min Est GFR ( Amer) Est GFR (Non-Af Amer) BUN/Creatinine Ratio (10-20) Glucose (70-99) mg/dl POC Glucose (other) 149 H (70-99) mg/dl Calcium (8.5-10.1) mg/dl POC Ioniz Calcium [place] 1.14 (1.12-1.32) mmol/l Phosphorus (2.5-4.9) mg/dl Magnesium (1.8-2.4) mg/dl Total Bilirubin (0.2-1) mg/dl AST (15-37) U/L ALT (12-78) U/L Alkaline Phosphatase (45-117) U/L Troponin I (0-0.045) ng/ml Total Protein (6.4-8.2) gm/dl Albumin (3.4-5.0) gm/dl Globulin (2.5-4.0) gm/dl Albumin/Globulin Ratio (0.9-2) Lipase (73-393) U/L Urine Color Urine Appearance (Clear) Urine pH (4.5-7.5) Ur Specific [place] (1.000-1.030) Urine Protein (Negative) Urine Glucose (UA) (Negative) Urine Ketones (Negative) Urine Blood (Negative) Urine Nitrite (Negative) Urine Bilirubin (Negative) Urine Urobilinogen (Negative) Ur Leukocyte Esterase (Negative) Urine WBC (Auto) (0-5) /hpf Urine RBC (Auto) (0-4) /hpf U Hyaline Cast (Auto) (0-5) /lpf U Epithel Cells (Auto) (0-5) /lpf Urine Bacteria (Auto) (Negative) Blood Type Antibody Screen Imaging Data Radiologist's Impression: Radiology results as stated below per my review and the radiologist's interpretation: XR chest 1V portable CLINICAL HISTORY: 69 years-old Female presenting with abd pain, GIB. TECHNIQUE: Portable upright AP view of the chest was obtained. COMPARISON: 09/22/2018. FINDINGS: Atherosclerosis of the aortic arch. Cardiac silhouette enlarged. No focal opacity. No large effusion or pneumothorax. Osseous structures normal. Upper abdomen normal. IMPRESSION: 1. Cardiomegaly. No other convincing evidence of acute cardiopulmonary disease. Electronically signed by: Caleb Carver M.D. 08/06/2019 8:[address] abd pelvis IV con only CLINICAL HISTORY: 69 years-old Female presenting with abd pain, hematochezia. TECHNIQUE: Multidetector CT of the abdomen and pelvis was performed after the administration of intravenous contrast. IV contrast: 92 mL of Optiray 320. One or more dose lowering techniques were used consistent with the principles of ALARA (as low as reasonably achievable), including automatic exposure control, mA or kV adjustment to individual patient size, and/or use of iterative reconstruction. COMPARISON: 06/24/2018. CT DOSE (mGy.cm): The estimated cumulative dose is 604.20 mGy.cm. FINDINGS: Advertising Associate topogram: Orthopedic hardware. Lung bases: Normal heart size. No pericardial or pleural effusion. Minimal dependent changes likely atelectasis. Liver: Normal morphology. Peripherally nodular enhancing lesion in the posterior right hepatic lobe likely hepatic hemangioma, measuring over 5 cm in diameter. Patent hepatic vasculature. Biliary: No intrahepatic or extrahepatic biliary ductal dilatation. Normal gallbladder. Pancreas: Normal. Spleen: Normal. Adrenal glands: Normal. Kidneys and ureters: Normal. No hydronephrosis. Bladder: Normal. Pelvic organs: Uterus surgically absent. Bowel: Mild diverticulosis of the distal sigmoid colon. Focal wall thickening of the proximal to mid sigmoid colon extending proximal to the level of the splenic flexure. Mild pericolonic inflammatory change. The remainder of the colon is preserved. The appendix is normal. No bowel obstruction. Peritoneal cavity: Trace free fluid in the left lower quadrant. No free intraperitoneal or extraluminal gas. Lymph nodes: No enlarged lymph nodes in the abdomen or pelvis. Vasculature: Atherosclerosis of the normal caliber abdominal aorta. IVC patent. Abdominal wall: Normal. Musculoskeletal: Posterior lumbar fusion hardware. IMPRESSION: 1. Extensive wall thickening and mild pericolonic inflammatory change involving the splenic flexure to the mid sigmoid colon. This is evidence of colitis, likely on an infectious basis given the distribution. 2. Diverticulosis coli of the distal sigmoid colon. No evidence of divertic ulitis. 3. Right hepatic lobe hemangioma measuring over 5 cm. Electronically signed by: Caleb Carver M.D. 08/06/2019 10:11 PM ECG Data Attestation: I personally reviewed and interpreted this ECG as follows: Indication: other (Diarrhea) Rate (beats per minute): 65 Rhythm: normal sinus Findings: + other (Normal axis, Non-specific T wave abnormality ) and + nonspecific-ST abn; no acute ischemic change Blood Pressure Blood Pressure Findings: Elevated blood pressure Blood Pressure Disposition: Referred to patients primary care provider MDM Narrative The patient is a pleasant 69-year-old woman with a past medical history of hypertension, hyperlipidemia, IBS, GI bleed/colitis who presents emergency department with red blood per rectum over the past 24 hours with generalized abdominal pain and cramping per hpi. On arrival the patient is uncomfortable but no acute distress, afebrile stable vital signs. Exam patient has generalized abdominal tenderness without guarding or rebound. Rectal exam demonstrates scant brown stool that is guaiac negative and no gross melena or red blood. EKG without overt acute ischemia. Chest x-ray negative for acute process/free air. WBC 16.6, nonspecific. H/H 11/35.2 approximately prior range of values. Platelets 116 similar to prior range of values. Chemistry without acidosis. Phosphorus 1.9 with repletion provided. Electrolytes and LFTs unremarkable. Troponin negative. UA with epithelial cells>30. CT abdomen pelvis performed demonstrates evidence of colitis. Given the patient's report of bloody diarrhea will defer antibiotic treatment to admitting team. Patient was ordered for stool culture and C. difficile however has not had a bowel movement in the emergency department. [facility] for [facility]. Impression & Plan Hemorrhagic colitis, Anemia Discharge Plan Visit Data *Final* Discharge Date/Time: 08/07/19 01:23 Chief Complaint: Diarrhea Stated Complaint: DIARRHEA,BLEEDING,CRAMPING ED Provider: Buddy Robertson Discharge Problem: Hemorrhagic colitis, Anemia Patient Disposition: Admitted As Inpatient Discharge Instructions Interventions: ED Discharge Assessment Last Done: 08/07/19 01:23 The scribe's documentation has been prepared under my direction and personally reviewed by me in its entirety. I confirm that the note above accurately reflects all work, treatment, procedures, and medical decision making performed by me.
[2019-08-07] MEDS ORDERED: cefTRIAXone SODIUM 1,000 MG/50 ML BAG IV STA (00:10)
[2019-08-07] MEDS ORDERED: metroNIDAZOLE 500 MG/100 ML BAG IV ONE (00:41)
--- NOTE | 2019-08-07 00:44 | History & Physical Report ---
Date of Service August 07, 2019 Assessment & Plan (1) Hemorrhagic colitis: Recurrent disease History ischemic colitis as per records Possible foodborne illness rule out C. difficile No overt sepsis for now Anemia secondary to above hypertension, stable DM 2 diet-controlled, well-controlled as of recent outpatient hemoglobin A1c of 6.26 June 2019 anxiety/mood disorder, stable past tobacco abuse GMF Clear liquids for now Stool C. difficile IV Ceftriaxone, Flagyl; oral vancomycin if C. difficile positive GI consult if stool C. difficile negative RE recurrent colitis Hold home aspirin for now Trend H&H, transfuse PRBC if hemoglobin less than 7 and/or for symptomatic anemia ISS BG goal 140-180. DVT prophylaxis SCDs RE LGI bleed Full code History of Present Illness Chief Complaint: Diarrhea, bleeding, cramping Primary Care Provider: Caleb Randle MD History obtained from patient and records. Medical history significant for hypertension, hyperlipidemia, DM 2 diet- controlled, anxiety/mood disorder, past tobacco abuse, history diverticulosis/hx ischemic colitis as per records. Recent confinement June 2018 for bloody diarrhea. Diverticulosis found on colonoscopy. Recent confinement May 2019 under [facility] for reconstructive surgery. Yesterday morning patient noted bloody diarrhea more than 10 episodes associated with achy left-sided abdominal cramping with nausea, no emesis. No fever, no chills. No known sick contacts Patient ate at a buffet restaurant at a [place] 2 days ago. No other recent antibiotics except for preop Ancef last May 2019. Patient brought to the emergency room. Medical History as above Surgical History : Breast biopsy, breast lesion excision, cataract surgery, DENIS Family History : No IBD the patient's knowledge; heart disease, lung cancer, diabetes Personal/Social history : Past tobacco abuse, no EtOH intake, retired [employer] employee Allergies Allergy/AdvReac Type Severity Reaction Status Date / Time ciprofloxacin [From Cipro] Allergy Intermediate chest Verified 08/06/19 22:57 pain, nausea, vomiting, rash Iodinated Contrast Media Allergy Intermediate nausea, Verified 08/06/19 22:57 vomiting, diarrhea latex Allergy Intermediate rash, Verified 08/06/19 22:57 blisters with "latex bandaids" Quinolones Allergy Intermediate chest Verified 08/06/19 22:57 pain, nausea, vomiting, rash with cipro/ + tachycardia nickel Allergy Mild redness, Verified 08/06/19 22:57 itching Sulfa (Sulfonamide Allergy Mild rash Verified 08/06/19 22:57 Antibiotics) metals Allergy Severe lip Uncoded 08/06/19 22:57 tingling with "metal in lipstick" per skin testing Home Medications Home Medications Medication Instructions Recorded Confirmed Type dicyclomine 20 mg PO DAILY PRN #0 06/16/09 08/06/19 History lorazepam [Ativan] 1 mg PO Q8H PRN #0 06/16/09 08/06/19 History aspirin [Aspir-81] 81 mg PO QAM #0 03/31/10 08/06/19 History gabapentin 300 mg PO TID 06/24/18 08/06/19 History losartan 25 mg PO QAM 06/24/18 08/06/19 History meclizine 12.5 mg PO BID PRN 06/24/18 08/06/19 History metoprolol succinate 50 mg PO QAM 06/24/18 08/06/19 History pantoprazole [Protonix] 40 mg PO BID 06/24/18 08/06/19 History sertraline [Zoloft] 50 mg PO QAM 06/24/18 08/06/19 History simvastatin 20 mg PO HS 06/24/18 08/06/19 History Citrucel (sucrose) 1 tbsp PO QAM 09/21/18 08/06/19 History hydrocodone-acetaminophen [[place]] 1 tab PO Q6H PRN #40 tab 06/05/19 08/06/19 Rx ketorolac 10 mg PO Q8H PRN 08/06/19 08/06/19 History Past Med/Surg History Medical History Dyslipidemia Anxiety Hypertension Chronic back pain RLE radiculopathy Colitis Depression GERD (gastroesophageal reflux disease) controlled Osteoarthritis Pre-diabetes Vertigo Surgical History Hx of cataract surgery (Acute) bilateral H/O: hysterectomy total History of back surgery multiple; most recent L5-S1 decompression: 10/05/18: Grade view 1, MAC#3, ETT 7.5 at [facility] History of cardiac cath 2013= no stents Hx of tubal ligation Family History Mother Family history of diabetes mellitus Son Family history of diabetes mellitus Other Heart disease Social History Preferred Language: German Communication Ability: Effective 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 Beliefs That Will Affect Care: None Current Living Situation: Spouse Current Living Situation Comment: SPOUSE Feels Safe at Home: Yes Safety Concerns: Feels Safe At This Time Smoking Status: Never smoker Second Hand Exposure: No ; Hx Alcohol Use: No Hx Substance Use: No Review of Systems Review of Systems: As per HPI, all 10 systems reviewed, all other ROS negative Physical Exam Physical Exam: GENERAL: Comfortable, pleasant, looks younger than stated age, no respiratory distress, lying on the right lateral decubitus position SKIN: Pallor , warm HEENT: Pale palpebral conjunctivae, no ptosis, dry buccal mucosa NECK : Supple, no tenderness CHEST : CTA, no tenderness HEART : RRR, systolic murmur ABDOMEN: Some distention, left-sided abdominal tenderness EXTREMITIES : Minimal LE swelling, no LE tenderness, no other conspicuous deformities noted NEUROLOGIC : Coherent, no facial asymmetry, no other gross focality Results & Data Vital Signs (Past 12 Hours) Vital Signs Temp Pulse Pulse Resp BP BP Pulse Ox 08/06/19 22:53 64 18 132/61 96 08/06/19 20:44 99 08/06/19 20:42 73 18 165/64 H 99 08/06/19 19:08 36.9 C 89 18 153/76 H 98 Laboratory Results Laboratory Results WBC 16.69 K/uL (4.8-10.8) H 08/06/19 20:19 RBC 4.54 M/uL (4.2-5.4) 08/06/19 20:19 Hgb 11.0 g/dL (12.0-16.0) L 08/06/19 20:19 POC Hgb 11.2 g/dl (12.0-16.0) L 08/06/19 20:36 Hct 35.2 % (37-47) L 08/06/19 20:19 POC Hct 33 % (37-47) L 08/06/19 20:36 MCV 77.5 fL (80-100) L 08/06/19 20:19 MCH 24.2 pg (25-34) L 08/06/19 20:19 MCHC 31.3 g/dL (32-36) L 08/06/19 20: RDW Std Deviation 42.4 fL (36.4-46.3) 08/06/19: RDW Coeff of Kandis 14.9 % (11.5-14.5) H 08/06/19 20:19 Plt Count K/uL (130-400) 08/06/19 20: MPV fL (7.4-10.4) 08/06/19 20: Platelet Estimate Normal (Normal) 08/06/19: PT 11.3 Seconds (9.0-12.0) 08/06/19: INR 1.1 (0.9-1.1) 08/06/19: POC Sodium 136 mEq/L (135-144) 08/06/19 20:36 Sodium 135 mmol/L (136-145) L 08/06/19 20: POC Potassium 3.8 mEq/L (3.3-5.0) 08/06/19 20:36 Potassium 3.6 mmol/L (3.5-5.1) 08/06/19 20:19 POC Chloride 100 mEq/L (101-112) L 08/06/19 20:36 Chloride 102 mmol/L (98-107) 08/06/19 20:19 Carbon Dioxide 23 mmol/L (21-32) 08/06/19 20:19 POC Total CO2 25 mEq/l (24-31) 08/06/19 20:36 Anion Gap 10.0 (3-11) 08/06/19 20:19 POC Anion Gap 15.0 mmol/L (16-25) L 08/06/19 20:36 POC BUN 12 mg/dl (7-18) 08/06/19 20:36 BUN 14 mg/dl (7-18) 08/06/19 20:19 Creatinine 1.03 mg/dl (0.6-1.2) 08/06/19 20:19 POC Creatinine 0.9 mg/dl (0.6-1.3) 08/06/19 20:36 Est Cr Clr Drug Dosing 52.2 ml/min 08/06/19 20:19 Est GFR ( Amer) 64.7 08/06/19 20:19 Est GFR (Non-Af Amer) 55.8 08/06/19 20: BUN/Creatinine Ratio 13.9 (10-20) 08/06/19 20: Glucose 147 mg/dl (70-99) H 08/06/19 20: POC Glucose (other) 149 mg/dl (70-99) H 08/06/19 20:36 Calcium 9.2 mg/dl (8.5-10.1) 08/06/19 20: POC Ioniz Calcium Emili 1.14 mmol/l (1.12-1.32) 08/06/19 20:36 Phosphorus 1.9 mg/dl (2.5-4.9) L 08/06/19: Magnesium 1.8 mg/dl (1.8-2.4) 08/06/19 20: Total Bilirubin 1.7 mg/dl (0.2-1) H 08/06/19 20: AST 13 U/L (15-37) L 08/06/19 20: ALT 17 U/L (12-78) 08/06/19 20: Alkaline Phosphatase 97 U/L (45-117) 08/06/19 20: Troponin I < 0.015 ng/ml (0-0.045) 08/06/19 20: Troponin I Cancelled 08/06/19 20: Total Protein 7.4 gm/dl (6.4-8.2) 08/06/19 20: Albumin 3.7 gm/dl (3.4-5.0) 08/06/19: Globulin 3.7 gm/dl (2.5-4.0) 08/06/19 20: Albumin/Globulin Ratio 1.0 (0.9-2) 08/06/19: Lipase 31 U/L (73-393) L 08/06/19 20: Urine Color [place] 08/06/19 20: Urine Appearance Cloudy (Clear) A 08/06/19 20: Urine pH 7.0 (4.5-7.5) 08/06/19 20: Ur Specific [place] 1.028 (1.000-1.030) 08/06/19 20: Urine Protein 1+ (Negative) H 08/06/19 20:33 Urine Glucose (UA) Negative (Negative) 08/06/19 20:33 Urine Ketones 1+ (Negative) H 08/06/19 20:33 Urine Blood 1+ (Negative) H 08/06/19 20:33 Urine Nitrite Positive (Negative) A 08/06/19 20:33 Urine Bilirubin Negative (Negative) 08/06/19 20:33 Urine Urobilinogen Negative (Negative) 08/06/19 20:33 Ur Leukocyte Esterase Trace (Negative) H 08/06/19 20:33 Urine WBC (Auto) 1-5 /hpf (0-5) 08/06/19 20:33 Urine RBC (Auto) 5-10 /hpf (0-4) H 08/06/19 20: U Hyaline Cast (Auto) 5-10 /lpf (0-5) H 08/06/19 20:33 U Epithel Cells (Auto) >30 /lpf (0-5) H 08/06/19 20:33 Urine Bacteria (Auto) Negative (Negative) 08/06/19 20: Blood Type O Positive 08/06/19 20: Antibody Screen NEGATIVE 08/06/19 20:[address] abdomen pelvis: 1. Extensive wall thickening and mild pericolonic inflammatory change involving the splenic flexure to the mid sigmoid colon. This is evidence of colitis, likely on an infectious basis given the distribution. 2. Diverticulosis coli of the distal sigmoid colon. No evidence of diverticulitis. 3. Right hepatic lobe hemangioma measuring over 5 cm. Chest x-ray : Cardiomegaly EKG as per my interpretation : Rate 65, NSR, normal axis, T wave inversion septal leads
[2019-08-07] MEDS ORDERED: GLUCOSE 40% GEL 15 GM TUBE PO PRN (01:44)
[2019-08-07] MEDS ORDERED: POTASSIUM PHOS 3 MMOL/1 ML INFUSION IV STA (01:44)
[2019-08-07] MEDS ORDERED: HYDROCODONE/ACETAMINOPHEN 10/325 TAB PO PRN (01:44)
[2019-08-07] MEDS ORDERED: DEXTROSE 50% 50 ML SYRINGE IV PRN (01:44)
[2019-08-07] MEDS ORDERED: CARBOHYDRATES FOR HYPOGLYCEMIA PO PRN (01:44)
[2019-08-07] MEDS ORDERED: LACTATED RINGER'S 1,000 ML IV ONE (01:44)
[2019-08-07] MEDS ORDERED: ACETAMINOPHEN 325 MG TAB PO PRN (01:44)
[2019-08-07] MEDS ORDERED: LORazepam 0.5 MG TAB PO PRN (01:44)
[2019-08-07] MEDS ORDERED: GLUCAGON FOR INJ 1 MG VIAL SQ PRN (01:44)
[2019-08-07] MEDS ORDERED: PROMETHAZINE HCL 12.5 MG in SODIUM CHLORIDE 0.9% 50 ML IV PRN (01:44)
[2019-08-07] MEDS ORDERED: GLUCOSE 10 TABS/TUBE PO PRN (01:44)
[2019-08-07] MEDS ORDERED: POTASSIUM PHOSPHATE 21 MMOL in SODIUM CHLORIDE 0.9% 500 ML IV ONE (02:00)
[2019-08-07] MEDS: INSULIN ASPART 100 UNITS/ML 3 ML PEN SC SCH ×5 (02:46→21:38)
[2019-08-07 04:08] LABS: Basophils # (auto) 0.01 K/uL (0-0.2); Basophils % (auto) 0.1 %; Eosinophils # (auto) 0.01 K/uL (0-0.5); Eosinophils % (auto) 0.1 %; Hematocrit (blood only) 30.1 % (37-47); Hemoglobin 9.4 g/dL (12.0-16.0); Immature Granulocytes # (auto) 0.04 K/uL (0.00-0.02); Immature Granulocytes % (auto) 0.2 %; Lymphocytes # (auto) 0.83 K/uL (1.2-3.4); Lymphocytes % (auto) 4.7 %; Mean Corpuscular Hemoglobin 24.3 pg (25-34); Mean Corpuscular Hgb Conc 31.2 g/dL (32-36); Mean Corpuscular Volume 77.8 fL (80-100); Mean Platelet Volume 11.2 fL (7.4-10.4); Monocytes % (auto) 1.1 %; Neutrophils # (auto) 16.44 K/uL (1.4-6.5); Neutrophils % (auto) 93.8 %; Platelet Count 144 K/uL (130-400); RDW Coefficient of Variation 14.9 % (11.5-14.5); RDW Standard Deviation 42.4 fL (36.4-46.3); Red Blood Count 3.87 M/uL (4.2-5.4); White Blood Count 17.53 K/uL (4.8-10.8)
[2019-08-07 04:36] LABS: BUN Creatinine Ratio 15.4 (10-20); Calcium 8.1 mg/dl (8.5-10.1); Creatinine Clr Calc Pharmacy 65.5 ml/min; Est GFR (African American) 85.2; Est GFR (Non-African American) 73.5; Potassium 4.4 mmol/L (3.5-5.1)
[2019-08-07] MEDS ORDERED: INSULIN GLARGINE SOLOSTAR 100 UNITS/ML 3 ML PEN SC STA (05:44)
[2019-08-07 07:03] LABS: Hematocrit (blood only) 29.6 % (37-47); Hemoglobin 9.3 g/dL (12.0-16.0)
[2019-08-07] MEDS: METOPROLOL SUCC 50MG EXT REL TAB PO SCH (08:12)
[2019-08-07] MEDS: LOSARTAN POTASSIUM 25 MG TAB PO SCH (08:12)
[2019-08-07] MEDS: SERTRALINE HCL 50 MG TABLET PO SCH (08:12)
[2019-08-07] MEDS: GABAPENTIN 100 MG CAP PO SCH ×3 (08:13→20:45)
[2019-08-07] MEDS: metroNIDAZOLE 500 MG/100 ML BAG IV SCH ×2 (08:13→16:09)
[2019-08-07] MEDS: PANTOprazole 40 MG TAB PO SCH ×2 (08:13→20:46)
--- NOTE | 2019-08-07 11:17 | Gastrointestinal Consultation ---
Date of Consultation August 07, 2019 Assessment & Plan (1) Bloody diarrhea: 69 year old female with history of ischemic colitis w/ lower abd cramping, diarrhea x 48 hours now w/ report of rectal bleeding. There is CT evidence of wall thickening and mild pericolonic inflammatory change involving the splenic flexure to the mid sigmoid colon. C.diff Culture Agree w/ Iv fluid hydration Would hold on ABX therapy until c.diff returns Bentyl PRN Analgesia PRN Trend HGB (9.3 down from baseline 11) Monitor and document GI output Transfuse PRN HGB < 8 Thank you for allowing us to participate in the care of this patient. Please call with any acute changes, questions or concerns. Please see addendum below with additional recommendation from my supervising physician. Present on Admission?: Yes Supervising Physician Co-Signing Physician Notes I have performed a history and physical examination of this patient and reviewed the electronic medical record. Specifically, on physical examination abdomen is soft and non tender. I have discussed the case with NAIMA Campos. The above note reflects my findings, conclusions, and recommendations. Eliseo Vu MD History of Present Illness Reason for Consultation: rectal bleeding, diarrhea Requesting Physician: Abdoulaye Attending Physician: Jazmyn Stanford DO History of Present Illness 69 year old female with history of HTN, hyperlipidemia, T2DM who presented through the ED for evaluation of diarrhea and lower abdominal pain - GI asked to evaluate as she developed rectal bleeding yesterday. Pt was seen and evaluated, chart reviewed. She is upright in bed, just finished clear liquid tray. She endorses onset of lower abd cramping, diarrhea w/ 12+ nonbloody stools two days ago. Yesterday, noted gita blood in stool. No black stool prior. Today she notes improvement of her pain, no BM since admission Ate at a buffet 72 h ago No ilicit drug use Notes dehydration around same time as symptoms started No low BP CT: Extensive wall thickening and mild pericolonic inflammatory change involving the splenic flexure to the mid sigmoid colon. This is evidence of colitis, lik krista on an infectious basis given the distribution. Colonoscopy 2018: The examined portion of the ileum was normal.Diverticulosis in the sigmoid colon.The distal rectum and anal verge are normal on retroflexion view. No specimens collected. Allergies Allergy/AdvReac Type Severity Reaction Status Date / Time ciprofloxacin [From Cipro] Allergy Intermediate chest Verified 08/06/19 22:57 pain, nausea, vomiting, rash Iodinated Contrast Media Allergy Intermediate nausea, Verified 08/06/19 22:57 vomiting, diarrhea latex Allergy Intermediate rash, Verified 08/06/19 22:57 blisters with "latex bandaids" Quinolones Allergy Intermediate chest Verified 08/06/19 22:57 pain, nausea, vomiting, rash with cipro/ + tachycardia nickel Allergy Mild redness, Verified 08/06/19 22:57 itching Sulfa (Sulfonamide Allergy Mild rash Verified 08/06/19 22:57 Antibiotics) metals Allergy Severe lip Uncoded 08/06/19 22:57 tingling with "metal in lipstick" per skin testing Home Medications Home Medications Medication Instructions Recorded Confirmed Type dicyclomine 20 mg PO DAILY PRN #0 06/16/09 08/06/19 History lorazepam [Ativan] 1 mg PO Q8H PRN #0 06/16/09 08/06/19 History aspirin [Aspir-81] 81 mg PO QAM #0 03/31/10 08/06/19 History gabapentin 300 mg PO TID 06/24/18 08/06/19 History losartan 25 mg PO QAM 06/24/18 08/06/19 History meclizine 12.5 mg PO BID PRN 06/24/18 08/06/19 History metoprolol succinate 50 mg PO QAM 06/24/18 08/06/19 History pantoprazole [Protonix] 40 mg PO BID 06/24/18 08/06/19 History sertraline [Zoloft] 50 mg PO QAM 06/24/18 08/06/19 History simvastatin 20 mg PO HS 06/24/18 08/06/19 History Citrucel (sucrose) 1 tbsp PO QAM 09/21/18 08/06/19 History hydrocodone-acetaminophen [[place]] 1 tab PO Q6H PRN #40 tab 06/05/19 08/06/19 Rx ketorolac 10 mg PO Q8H PRN 08/06/19 08/06/19 History Patient History Medical History Dyslipidemia Anxiety Hypertension Chronic back pain RLE radiculopathy Colitis Depression GERD (gastroesophageal reflux disease) controlled Osteoarthritis Pre-diabetes Vertigo Surgical History Hx of cataract surgery (Acute) bilateral H/O: hysterectomy total History of back surgery multiple; most recent L5-S1 decompression: 10/05/18: Grade view 1, MAC#3, ETT 7.5 at [facility] History of cardiac cath 2013= no stents Hx of tubal ligation Family History Mother Family history of diabetes mellitus Son Family history of diabetes mellitus Other Heart disease Social History Preferred Language: Yi Communication Ability: Effective Fuel Attendant Required: No Beliefs That Will Affect Care: None Current Living Situation: Spouse Current Living Situation Comment: [facility] Feels Safe at Home: Yes Safety Concerns: Feels Safe At This Time Smoking Status: Never smoker Second Hand Exposure: No ; Hx Alcohol Use: No Hx Substance Use: No Review of Systems Constitutional: no fever, no chills and no fatigue Respiratory: no cough and no dyspnea Cardiovascular: no chest pain, no radiating jaw, neck or arm pain and no dyspnea on exertion Gastrointestinal: + diarrhea/loose stools and + blood in stools; no nausea, no coffee ground emesis, no hematemesis and no melena Physical Exam Constitutional: WD/WN, vitals as above no acute distress and not ill appearing Respiratory: normal respiratory effort Cardiovascular: Rate/Rhythm: regular rate and regular rhythm Gastrointestinal (Abdomen): normal bowel sounds, soft, nontender, no hepatosplenomegaly Skin: no rashes, warm and dry Results & Data Vital Signs (Past 12 Hours) Vital Signs Temp Pulse Resp BP BP Pulse Ox 08/07/19 07:07 36.4 C L 57 L 16 150/68 H 97 08/07/19 01:35 36.8 C 61 16 132/70 96 08/07/19 00:47 60 18 125/66 95 Laboratory Results 08/07/19 08/07/19 08/07/19 Range/Units 08:05 06:53 04:01 WBC (4.8-10.8) K/uL RBC (4.2-5.4) M/uL Hgb 9.3 L (12.0-16.0) g/dL POC Hgb (12.0-16.0) g/dl Hct 29.6 L (37-47) % POC Hct (37-47) % MCV (80-100) fL MCH (25-34) pg MCHC (32-36) g/dL RDW Std Deviation (36.4-46.3) fL RDW Coeff of Kandis (11.5-14.5) % Plt Count (130-400) K/uL MPV (7.4-10.4) fL Immature Gran % (Auto) % Neut % (Auto) % Lymph % (Auto) % [place] % (Auto) % Eos % (Auto) % Baso % (Auto) % Immature Gran # (Auto) (0.00-0.02) K/uL Neut # (Auto) (1.4-6.5) K/uL Lymph # (Auto) (1.2-3.4) K/uL [place] # (Auto) (0.11-0.59) K/uL Eos # (Auto) (0-0.5) K/uL Baso # (Auto) (0-0.2) K/uL Platelet Estimate (Normal) PT (9.0-12.0) Seconds INR (0.9-1.1) POC Sodium (135-144) mEq/L Sodium (136-145) mmol/L POC Potassium (3.3-5.0) mEq/L Potassium (3.5-5.1) mmol/L POC Chloride (101-112) mEq/L Chloride (98-107) mmol/L Carbon Dioxide (21-32) mmol/L POC Total CO2 (24-31) mEq/l Anion Gap (3-11) POC Anion Gap (16-25) mmol/L POC BUN (7-18) mg/dl BUN (7-18) mg/dl Creatinine (0.6-1.2) mg/dl POC Creatinine (0.6-1.3) mg/dl Est Cr Clr Drug Dosing ml/min Est GFR ( Amer) Est GFR (Non-Af Amer) BUN/Creatinine Ratio (10-20) Glucose (70-99) mg/dl POC Glucose 171 H (70-99) POC Glucose (other) (70-99) mg/dl Lactate (0.4-2.0) mmol/L Calcium (8.5-10.1) mg/dl POC Ioniz Calcium Emili (1.12-1.32) mmol/l Phosphorus (2.5-4.9) mg/dl Magnesium (1.8-2.4) mg/dl Total Bilirubin (0.2-1) mg/dl AST (15-37) U/L ALT (12-78) U/L Alkaline Phosphatase (45-117) U/L Troponin I (0-0.045) ng/ml Total Protein (6.4-8.2) gm/dl Albumin (3.4-5.0) gm/dl Globulin (2.5-4.0) gm/dl Albumin/Globulin Ratio (0.9-2) Lipase (73-393) U/L Urine Color Urine Appearance (Clear) Urine pH (4.5-7.5) Ur Specific [place] (1.000-1.030) Urine Protein (Negative) Urine Glucose (UA) (Negative) Urine Ketones (Negative) Urine Blood (Negative) Urine Nitrite (Negative) Urine Bilirubin (Negative) Urine Urobilinogen (Negative) Ur Leukocyte Esterase (Negative) Urine WBC (Auto) (0-5) /hpf Urine RBC (Auto) (0-4) /hpf U Hyaline Cast (Auto) (0-5) /lpf U Epithel Cells (Auto) (0-5) /lpf Urine Bacteria (Auto) (Negative) Hepatitis C Ab Screen Neg (Neg) Blood Type Antibody Screen 08/07/19 08/07/19 08/07/19 Range/Units 04:01 04:01 04:00 WBC 17.53 H (4.8-10.8) K/uL RBC 3.87 L (4.2-5.4) M/uL Hgb 9.4 L (12.0-16.0) g/dL POC Hgb (12.0-16.0) g/dl Hct 30.1 L (37-47) % POC Hct (37-47) % MCV 77.8 L (80-100) fL MCH 24.3 L (25-34) pg MCHC 31.2 L (32-36) g/dL RDW Std Deviation 42.4 (36.4-46.3) fL RDW Coeff of Kandis 14.9 H (11.5-14.5) % Plt Count 144 (130-400) K/uL MPV 11.2 H (7.4-10.4) fL Immature Gran % (Auto) 0.2 % Neut % (Auto) 93.8 % Lymph % (Auto) 4.7 % [place] % (Auto) 1.1 % Eos % (Auto) 0.1 % Baso % (Auto) 0.1 % Immature Gran # (Auto) 0.04 H (0.00-0.02) K/uL Neut # (Auto) 16.44 H (1.4-6.5) K/uL Lymph # (Auto) 0.83 L (1.2-3.4) K/uL [place] # (Auto) 0.20 (0.11-0.59) K/uL Eos # (Auto) 0.01 (0-0.5) K/uL Baso # (Auto) 0.01 (0-0.2) K/uL Platelet Estimate (Normal) PT (9.0-12.0) Seconds INR (0.9-1.1) POC Sodium (135-144) mEq/L Sodium 137 (136-145) mmol/L POC Potassium (3.3-5.0) mEq/L Potassium 4.4 D (3.5-5.1) mmol/L POC Chloride (101-112) mEq/L Chloride 108 H (98-107) mmol/L Carbon Dioxide 26 (21-32) mmol/L POC Total CO2 (24-31) mEq/l Anion Gap 3.0 (3-11) POC Anion Gap (16-25) mmol/L POC BUN (7-18) mg/dl BUN 13 (7-18) mg/dl Creatinine 0.82 (0.6-1.2) mg/dl POC Creatinine (0.6-1.3) mg/dl Est Cr Clr Drug Dosing 65.5 ml/min Est GFR ( Amer) 85.2 Est GFR (Non-Af Amer) 73.5 BUN/Creatinine Ratio 15.4 (10-20) Glucose 194 H (70-99) mg/dl POC Glucose (70-99) POC Glucose (other) (70-99) mg/dl Lactate 1.0 (0.4-2.0) mmol/L Calcium 8.1 L (8.5-10.1) mg/dl POC Ioniz Calcium Emili (1.12-1.32) mmol/l Phosphorus (2.5-4.9) mg/dl Magnesium (1.8-2.4) mg/dl Total Bilirubin (0.2-1) mg/dl AST (15-37) U/L ALT (12-78) U/L Alkaline Phosphatase (45-117) U/L Troponin I (0-0.045) ng/ml Total Protein (6.4-8.2) gm/dl Albumin (3.4-5.0) gm/dl Globulin (2.5-4.0) gm/dl Albumin/Globulin Ratio (0.9-2) Lipase (73-393) U/L Urine Color Urine Appearance (Clear) Urine pH (4.5-7.5) Ur Specific [place] (1.000-1.030) Urine Protein (Negative) Urine Glucose (UA) (Negative) Urine Ketones (Negative) Urine Blood (Negative) Urine Nitrite (Negative) Urine Bilirubin (Negative) Urine Urobilinogen (Negative) Ur Leukocyte Esterase (Negative) Urine WBC (Auto) (0-5) /hpf Urine RBC (Auto) (0-4) /hpf U Hyaline Cast (Auto) (0-5) /lpf U Epithel Cells (Auto) (0-5) /lpf Urine Bacteria (Auto) (Negative) Hepatitis C Ab Screen (Neg) Blood Type Antibody Screen 08/07/19 08/06/19 08/06/19 Range/Units 02:26 20:36 20:33 WBC (4.8-10.8) K/uL RBC (4.2-5.4) M/uL Hgb (12.0-16.0) g/dL POC Hgb 11.2 L (12.0-16.0) g/dl Hct (37-47) % POC Hct 33 L (37-47) % MCV (80-100) fL MCH (25-34) pg MCHC (32-36) g/dL RDW Std Deviation (36.4-46.3) fL RDW Coeff of Kandis (11.5-14.5) % Plt Count (130-400) K/uL MPV (7.4-10.4) fL Immature Gran % (Auto) % Neut % (Auto) % Lymph % (Auto) % [place] % (Auto) % Eos % (Auto) % Baso % (Auto) % Immature Gran # (Auto) (0.00-0.02) K/uL Neut # (Auto) (1.4-6.5) K/uL Lymph # (Auto) (1.2-3.4) K/uL [place] # (Auto) (0.11-0.59) K/uL Eos # (Auto) (0-0.5) K/uL Baso # (Auto) (0-0.2) K/uL Platelet Estimate (Normal) PT (9.0-12.0) Seconds INR (0.9-1.1) POC Sodium 136 (135-144) mEq/L Sodium (136-145) mmol/L POC Potassium 3.8 (3.3-5.0) mEq/L Potassium (3.5-5.1) mmol/L POC Chloride 100 L (101-112) mEq/L Chloride (98-107) mmol/L Carbon Dioxide (21-32) mmol/L POC Total CO2 25 (24-31) mEq/l Anion Gap (3-11) POC Anion Gap 15.0 L (16-25) mmol/L POC BUN 12 (7-18) mg/dl BUN (7-18) mg/dl Creatinine (0.6-1.2) mg/dl POC Creatinine 0.9 (0.6-1.3) mg/dl Est Cr Clr Drug Dosing ml/min Est GFR ( Amer) Est GFR (Non-Af Amer) BUN/Creatinine Ratio (10-20) Glucose (70-99) mg/dl POC Glucose 212 H (70-99) POC Glucose (other) 149 H (70-99) mg/dl Lactate (0.4-2.0) mmol/L Calcium (8.5-10.1) mg/dl POC Ioniz Calcium Em[place] 1.14 (1.12-1.32) mmol/l Phosphorus (2.5-4.9) mg/dl Magnesium (1.8-2.4) mg/dl Total Bilirubin (0.2-1) mg/dl AST (15-37) U/L ALT (12-78) U/L Alkaline Phosphatase (45-117) U/L Troponin I (0-0.045) ng/ml Total Protein (6.4-8.2) gm/dl Albumin (3.4-5.0) gm/dl Globulin (2.5-4.0) gm/dl Albumin/Globulin Ratio (0.9-2) Lipase (73-393) U/L Urine Color [place] Urine Appearance Cloudy A (Clear) Urine pH 7.0 (4.5-7.5) Ur Specific [place] 1.028 (1.000-1.030) Urine Protein 1+ H (Negative) Urine Glucose (UA) Negative (Negative) Urine Ketones 1+ H (Negative) Urine Blood 1+ H (Negative) Urine Nitrite Positive A (Negative) Urine Bilirubin Negative (Negative) Urine Urobilinogen Negative (Negative) Ur Leukocyte Esterase Trace H (Negative) Urine WBC (Auto) 1-5 (0-5) /hpf Urine RBC (Auto) 5-10 H (0-4) /hpf U Hyaline Cast (Auto) 5-10 H (0-5) /lpf U Epithel Cells (Auto) >30 H (0-5) /lpf Urine Bacteria (Auto) Negative (Negative) Hepatitis C Ab Screen (Neg) Blood Type Antibody Screen 08/06/19 08/06/19 08/06/19 Range/Units 20:19 20:19 20:19 WBC (4.8-10.8) K/uL RBC (4.2-5.4) M/uL Hgb (12.0-16.0) g/dL POC Hgb (12.0-16.0) g/dl Hct (37-47) % POC Hct (37-47) % MCV (80-100) fL MCH (25-34) pg MCHC (32-36) g/dL RDW Std Deviation (36.4-46.3) fL RDW Coeff of Kandis (11.5-14.5) % Plt Count (130-400) K/uL MPV (7.4-10.4) fL Immature Gran % (Auto) % Neut % (Auto) % Lymph % (Auto) % [place] % (Auto) % Eos % (Auto) % Baso % (Auto) % Immature Gran # (Auto) (0.00-0.02) K/uL Neut # (Auto) (1.4-6.5) K/uL Lymph # (Auto) (1.2-3.4) K/uL [place] # (Auto) (0.11-0.59) K/uL Eos # (Auto) (0-0.5) K/uL Baso # (Auto) (0-0.2) K/uL Platelet Estimate (Normal) PT (9.0-12.0) Seconds INR (0.9-1.1) POC Sodium (135-144) mEq/L Sodium 135 L (136-145) mmol/L POC Potassium (3.3-5.0) mEq/L Potassium 3.6 (3.5-5.1) mmol/L POC Chloride (101-112) mEq/L Chloride 102 (98-107) mmol/L Carbon Dioxide 23 (21-32) mmol/L POC Total CO2 (24-31) mEq/l Anion Gap 10.0 (3-11) POC Anion Gap (16-25) mmol/L POC BUN (7-18) mg/dl BUN 14 (7-18) mg/dl Creatinine 1.03 (0.6-1.2) mg/dl POC Creatinine (0.6-1.3) mg/dl Est Cr Clr Drug Dosing 52.2 ml/min Est GFR ( Amer) 64.7 Est GFR (Non-Af Amer) 55.8 BUN/Creatinine Ratio 13.9 (10-20) Glucose 147 H (70-99) mg/dl POC Glucose (70-99) POC Glucose (other) (70-99) mg/dl Lactate (0.4-2.0) mmol/L Calcium 9.2 (8.5-10.1) mg/dl POC Ioniz Calcium [place] (1.12-1.32) mmol/l Phosphorus 1.9 L (2.5-4.9) mg/dl Magnesium 1.8 (1.8-2.4) mg/dl Total Bilirubin 1.7 H (0.2-1) mg/dl AST 13 L (15-37) U/L ALT 17 (12-78) U/L Alkaline Phosphatase 97 (45-117) U/L Troponin I Cancelled < 0.015 (0-0.045) ng/ml Total Protein 7.4 (6.4-8.2) gm/dl Albumin 3.7 (3.4-5.0) gm/dl Globulin 3.7 (2.5-4.0) gm/dl Albumin/Globulin Ratio 1.0 (0.9-2) Lipase 31 L (73-393) U/L Urine Color Urine Appearance (Clear) Urine pH (4.5-7.5) Ur Specific [place] (1.000-1.030) Urine Protein (Negative) Urine Glucose (UA) (Negative) Urine Ketones (Negative) Urine Blood (Negative) Urine Nitrite (Negative) Urine Bilirubin (Negative) Urine Urobilinogen (Negative) Ur Leukocyte Esterase (Negative) Urine WBC (Auto) (0-5) /hpf Urine RBC (Auto) (0-4) /hpf U Hyaline Cast (Auto) (0-5) /lpf U Epithel Cells (Auto) (0-5) /lpf Urine Bacteria (Auto) (Negative) Hepatitis C Ab Screen (Neg) Blood Type O Positive Antibody Screen NEGATIVE 08/06/19 08/06/19 Range/Units 20:19 20:19 WBC 16.69 H (4.8-10.8) K/uL RBC 4.54 (4.2-5.4) M/uL Hgb 11.0 L (12.0-16.0) g/dL POC Hgb (12.0-16.0) g/dl Hct 35.2 L (37-47) % POC Hct (37-47) % MCV 77.5 L (80-100) fL MCH 24.2 L (25-34) pg MCHC 31.3 L (32-36) g/dL RDW Std Deviation 42.4 (36.4-46.3) fL RDW Coeff of Kandis 14.9 H (11.5-14.5) % Plt Count (130-400) K/uL MPV (7.4-10.4) fL Immature Gran % (Auto) % Neut % (Auto) % Lymph % (Auto) % [place] % (Auto) % Eos % (Auto) % Baso % (Auto) % Immature Gran # (Auto) (0.00-0.02) K/uL Neut # (Auto) (1.4-6.5) K/uL Lymph # (Auto) (1.2-3.4) K/uL [place] # (Auto) (0.11-0.59) K/uL Eos # (Auto) (0-0.5) K/uL Baso # (Auto) (0-0.2) K/uL Platelet Estimate Normal (Normal) PT 11.3 (9.0-12.0) Seconds INR 1.1 (0.9-1.1) POC Sodium (135-144) mEq/L Sodium (136-145) mmol/L POC Potassium (3.3-5.0) mEq/L Potassium (3.5-5.1) mmol/L POC Chloride (101-112) mEq/L Chloride (98-107) mmol/L Carbon Dioxide (21-32) mmol/L POC Total CO2 (24-31) mEq/l Anion Gap (3-11) POC Anion Gap (16-25) mmol/L POC BUN (7-18) mg/dl BUN (7-18) mg/dl Creatinine (0.6-1.2) mg/dl POC Creatinine (0.6-1.3) mg/dl Est Cr Clr Drug Dosing ml/min Est GFR ( Amer) Est GFR (Non-Af Amer) BUN/Creatinine Ratio (10-20) Glucose (70-99) mg/dl POC Glucose (70-99) POC Glucose (other) (70-99) mg/dl Lactate (0.4-2.0) mmol/L Calcium (8.5-10.1) mg/dl POC Ioniz Calcium Emili (1.12-1.32) mmol/l Phosphorus (2.5-4.9) mg/dl Magnesium (1.8-2.4) mg/dl Total Bilirubin (0.2-1) mg/dl AST (15-37) U/L ALT (12-78) U/L Alkaline Phosphatase (45-117) U/L Troponin I (0-0.045) ng/ml Total Protein (6.4-8.2) gm/dl Albumin (3.4-5.0) gm/dl Globulin (2.5-4.0) gm/dl Albumin/Globulin Ratio (0.9-2) Lipase (73-393) U/L Urine Color Urine Appearance (Clear) Urine pH (4.5-7.5) Ur Specific [place] (1.000-1.030) Urine Protein (Negative) Urine Glucose (UA) (Negative) Urine Ketones (Negative) Urine Blood (Negative) Urine Nitrite (Negative) Urine Bilirubin (Negative) Urine Urobilinogen (Negative) Ur Leukocyte Esterase (Negative) Urine WBC (Auto) (0-5) /hpf Urine RBC (Auto) (0-4) /hpf U Hyaline Cast (Auto) (0-5) /lpf U Epithel Cells (Auto) (0-5) /lpf Urine Bacteria (Auto) (Negative) Hepatitis C Ab Screen (Neg) Blood Type Antibody Screen
[2019-08-07 12:13] LABS: Hematocrit (blood only) 28.9 % (37-47)
--- NOTE | 2019-08-07 17:08 | Hospitalist Progress Note ---
Date of Service August 07, 2019 Assessment & Plan (1) LGI bleed: History of ischemic colitis however, based on history this appears more to be infectious diarrhea. C. difficile is negative. Fevers, chills, abdominal pain, nausea has subsided with IV fluids overnight. She still apathetic to food however tolerating liquids. Continue supportive care. Will DC antibiotics per GI recommendations. We will continue to watch for bloody stools. (2) Acute blood loss anemia: Secondary to hematochezia. No indication for transfusion at this point. Continue supportive care. (3) DMII (diabetes mellitus, type 2): Glucose controlled on basal bolus insulin. Continue to trend. (4) Generalized anxiety disorder: Continue sertraline per home regimen. (5) HTN (hypertension): Controlled, continue losartan per home regimen. (6) DVT prophylaxis: SCDs, chemoprophylaxis contraindicated in setting of hematochezia Full code Disposition-continue to monitor in the hospital. Jazmyn Stanford DO [facility] Hospitalist Subjective 69-year-old female with a history of ischemic colitis, type 2 diabetes and high blood pressure presents with persistent bloody diarrhea for 2 days. She reports eating a [place] from [employer] in approximately 2 to 3 hours later came down with significant diarrhea. She reports having diarrhea frequently all night long and the following day having bloody stools full day. She reports fevers chills, abdominal pain, nausea, dry heaves. P.o. intake was poor. She reports having back surgery 4 months ago and a cataract surgery in the last couple of months. No recent antibiotic use. Today she is feeling well after antibiotics and IV fluids overnight. Review of Systems Review of Systems: All systems reviewed & are unremarkable except as noted in HPI & below Physical Exam Physical Exam: CONSTITUTIONAL: WNWD, vitals as above, generally well- appearing EYES: normal conjunctivae, no scleral icterus ENT: MMM RESPIRATORY: clear to auscultation bilaterally, no crackles, rales or wheezes, normal respiratory effort CARDIOVASCULAR: regular rate and rhythm, S1 and 2 heard without murmurs, gallops or rubs, no JVD, no peripheral edema GASTROINTESTINAL: Hyperactive bowel sounds, soft, tender to palpation in lower abdomen, nondistended MUSCULOSKELETAL: strength 5/5 throughout, head is normocephalic and atraumatic SKIN: warm and dry NEUROLOGIC: CN 2-12 grossly intact, no sensory deficit, normal cognition, normal speech, no gross focal deficits. PSYCHIATRIC: alert cooperative and oriented to person, place and time. Results & Data Vital Signs (Past 12 Hours) Vital Signs Temp Pulse Resp BP Pulse Ox 08/07/19 14:56 36.8 C 62 18 128/65 96 08/07/19 07:07 36.4 C L 57 L 16 150/68 H 97 Laboratory Results Short CBC 08/06/19 08/07/19 08/07/19 Range/Units 20:19 04:01 06:53 WBC 16.69 H 17.53 H (4.8-10.8) K/uL Hgb 11.0 L 9.4 L 9.3 L (12.0-16.0) g/dL Hct 35.2 L 30.1 L 29.6 L (37-47) % Plt Count 144 (130-400) K/uL 08/07/19 Range/Units 12:04 WBC (4.8-10.8) K/uL Hgb 9.0 L (12.0-16.0) g/dL Hct 28.9 L (37-47) % Plt Count (130-400) K/uL BMP 08/06/19 08/07/19 20:19 04:01 Sodium 135 L 137 Potassium 3.6 4.4 D Chloride 102 108 H Carbon Dioxide 23 26 BUN 14 13 Creatinine 1.03 0.82 Glucose 147 H 194 H Calcium 9.2 8.1 L Cardiac Enzymes 08/06/19 08/06/19 Range/Units 20:19 20:19 Troponin I < 0.015 Cancelled (0-0.045) ng/ml Liver Function 08/06/19 Range/Units 20:19 Total Bilirubin 1.7 H (0.2-1) mg/dl AST 13 L (15-37) U/L ALT 17 (12-78) U/L Alkaline Phosphatase 97 (45-117) U/L Albumin 3.7 (3.4-5.0) gm/dl Urine 08/06/19 Range/Units 20:33 Urine Color [place] Urine Appearance Cloudy A (Clear) Urine pH 7.0 (4.5-7.5) Ur Specific [place] 1.028 (1.000-1.030) Urine Protein 1+ H (Negative) Urine Glucose (UA) Negative (Negative) Diagnostic Findings CT abd pelvis IV con only CLINICAL HISTORY: 69 years-old Female presenting with abd pain, hematochezia. TECHNIQUE: Multidetector CT of the abdomen and pelvis was performed after the administration of intravenous contrast. IV contrast: 92 mL of Optiray 320. One or more dose lowering techniques were used consistent with the principles of ALARA (as low as reasonably achievable), including automatic exposure control, mA or kV adjustment to individual patient size, and/or use of iterative reconstruction. COMPARISON: 06/24/2018. CT DOSE (mGy.cm): The estimated cumulative dose is 604.20 mGy.cm. FINDINGS: [employer] topogram: Orthopedic hardware. Lung bases: Normal heart size. No pericardial or pleural effusion. Minimal dependent changes likely atelectasis. Liver: Normal morphology. Peripherally nodular enhancing lesion in the posterior right hepatic lobe likely hepatic hemangioma, measuring over 5 cm in diameter. Patent hepatic vasculature. Biliary: No intrahepatic or extrahepatic biliary ductal dilatation. Normal gallbladder. Pancreas: Normal. Spleen: Normal. Adrenal glands: Normal. Kidneys and ureters: Normal. No hydronephrosis. Bladder: Normal. Pelvic organs: Uterus surgically absent. Bowel: Mild diverticulosis of the distal sigmoid colon. Focal wall thickening of the proximal to mid sigmoid colon extending proximal to the level of the splenic flexure. Mild pericolonic inflammatory change. The remainder of the colon is preserved. The appendix is normal. No bowel obstruction. Peritoneal cavity: Trace free fluid in the left lower quadrant. No free intraperitoneal or extraluminal gas. Lymph nodes: No enlarged lymph nodes in the abdomen or pelvis. Vasculature: Atherosclerosis of the normal caliber abdominal aorta. IVC patent. Abdominal wall: Normal. Musculoskeletal: Posterior lumbar fusion hardware. IMPRESSION: 1. Extensive wall thickening and mild pericolonic inflammatory change involving the splenic flexure to the mid sigmoid colon. This is evidence of colitis, likely on an infectious basis given the distribution. 2. Diverticulosis coli of the distal sigmoid colon. No evidence of diverticu litis. 3. Right hepatic lobe hemangioma measuring over 5 cm. Medications Administered Current Inpatient Medications Acetaminophen (Tylenol) 650 mg PO Q4H PRN PRN Reason: pain/fever Stop: 09/06/19 01:43 Hydrocodone Bitart/Acetaminophen ([place] 10/325) 1 tab PO Q6H PRN PRN Reason: pain Stop: 08/21/19 01:43 Last Admin: 08/07/19 16:09 Dose: 1 tab Documented by: Dextrose (Dextrose 50%) 25 - 50 ml IV UD PRN; Protocol PRN Reason: Hypoglycemia Protocol Stop: 09/06/19 01:43 Gabapentin (Neurontin) 300 mg PO TID [facility] Stop: 09/06/19 08:59 Last Admin: 08/07/19 13:49 Dose: 300 mg Documented by: Glucagon (Glucagen) 1 mg SQ UD PRN; Protocol PRN Reason: Hypoglycemia Protocol Stop: 09/06/19 01:43 Glucose (Glucose 40%) 15 - 30 gm PO UD PRN; Protocol PRN Reason: Hypoglycemia Protocol Stop: 09/06/19 01:43 Glucose (Dex4 Glucose) 4 - 8 tabs PO UD PRN; Protocol PRN Reason: Hypoglycemia Protocol Stop: 09/06/19 01:43 Metronidazole (Flagyl) 500 mg in 100 mls @ 100 mls/hr IV Q8H [facility] Stop: 08/17/19 07:59 Last Admin: 08/07/19 16:09 Dose: 100 mls/hr Documented by: Ceftriaxone Sodium 1,000 mg/ (Dextrose) 50 mls @ 100 mls/hr IV Q24H [facility]; Protocol Stop: 08/16/19 01:29 Promethazine HCl 12.5 mg/ (Sodium Chloride) 50.5 mls @ 202 mls/hr IV Q6H PRN PRN Reason: Nausea And Vomiting Stop: 09/06/19 01:43 Insulin Aspart (Novolog Flexpen) 0 units SC ACHS [facility] Stop: 09/06/19 01:43 Last Admin: 08/07/19 12:45 Dose: 1 units Documented by: Insulin Glargine (Lantus Solostar Pen) 5 units SQ DAILY [facility] Stop: 09/07/19 08:59 Lorazepam (Ativan) 1 mg PO Q8H PRN PRN Reason: Anxiety Stop: 09/06/19 01:43 Losartan Potassium (Cozaar) 25 mg PO QAM [facility] Stop: 09/06/19 08:59 Last Admin: 08/07/19 08:12 Dose: 25 mg Documented by: Metoprolol Succinate (Toprol Xl) 50 mg PO QAM [facility] Stop: 09/06/19 08:59 Last Admin: 08/07/19 08:12 Dose: 50 mg Documented by: Miscellaneous (Carbohydrates For Hypoglycemia) 15 - 30 gm PO UD PRN PRN Reason: Hypoglycemia Treatment Stop: 09/06/19 01:43 Morphine Sulfate (Morphine Sulfate) 4 mg IV Q6H PRN PRN Reason: Pain Stop: 08/21/19 01:43 Pantoprazole Sodium (Protonix) 40 mg PO BID [facility] Stop: 09/06/19 08:59 Last Admin: 08/07/19 08:13 Dose: 40 mg Documented by: Sertraline HCl (Zoloft) 50 mg PO QAM [facility] Stop: 09/06/19 08:59 Last Admin: 08/07/19 08:12 Dose: 50 mg Documented by: Simvastatin (Zocor) 20 mg PO HS [facility] Stop: 09/06/19 20:59
[2019-08-07] MEDS: MoRPHine SULFATE 4 MG/ML 1 ML CARP\\VIAL IV PRN (17:14)
[2019-08-07 18:10] LABS: Hematocrit (blood only) 27.6 % (37-47); Hemoglobin 8.6 g/dL (12.0-16.0)
[2019-08-07] MEDS: SIMVASTATIN 20 MG TAB PO SCH (20:45)
[2019-08-08] MEDS ORDERED: cefTRIAXone SODIUM 1,000 MG in DEXTROSE 5% 50 ML IV SCH (01:00)
[2019-08-08 05:10] LABS: Basophils # (auto) 0.02 K/uL (0-0.2); Basophils % (auto) 0.1 %; Eosinophils # (auto) 0.05 K/uL (0-0.5); Eosinophils % (auto) 0.3 %; Hemoglobin 8.4 g/dL (12.0-16.0); Immature Granulocytes # (auto) 0.04 K/uL (0.00-0.02); Immature Granulocytes % (auto) 0.2 %; Lymphocytes # (auto) 1.53 K/uL (1.2-3.4); Lymphocytes % (auto) 9.5 %; Mean Corpuscular Hemoglobin 24.8 pg (25-34); Mean Corpuscular Hgb Conc 31.1 g/dL (32-36); Mean Corpuscular Volume 79.6 fL (80-100); Mean Platelet Volume 10.3 fL (7.4-10.4); Monocytes # (auto) 1.29 K/uL (0.11-0.59); Neutrophils # (auto) 13.23 K/uL (1.4-6.5); Neutrophils % (auto) 81.9 %; Platelet Count 218 K/uL (130-400); RDW Coefficient of Variation 15.1 % (11.5-14.5); RDW Standard Deviation 43.9 fL (36.4-46.3); Red Blood Count 3.39 M/uL (4.2-5.4); White Blood Count 16.16 K/uL (4.8-10.8)
[2019-08-08 05:41] LABS: BUN Creatinine Ratio 16.5 (10-20); Creatinine Clr Calc Pharmacy 55.4 ml/min; Est GFR (African American) 69.6; Potassium 3.8 mmol/L (3.5-5.1)
--- NOTE | 2019-08-08 08:14 | Gastroenterology Progress Note ---
Date of Service August 08, 2019 Assessment & Plan (1) Bloody diarrhea: 69 year old female with history of ischemic colitis w/ lower abd cramping, diarrhea x 48 hours now w/ report of rectal bleeding. There is CT evidence of wall thickening and mild pericolonic inflammatory change involving the splenic flexure to the mid sigmoid colon. C.diff negative Culture pending Clear liquid diet --> advance as tolerated Agree w/ Iv fluid hydration Bentyl PRN Analgesia PRN Trend HGB (9.3 down from baseline 11) Monitor and document GI output Transfuse PRN HGB < 8 MRA/CTA prior to discharge Thank you for allowing us to participate in the care of this patient. Please call with any acute changes, questions or concerns. Please see addendum below with additional recommendation from my supervising physician. Supervising Physician Co-Signing Physician Notes I have performed a history and physical examination of this patient and reviewed the electronic medical record. Specifically, on history she has had two non-bloody loose BM's with cramps after stooling. On physical examination there is LLQ tenderness without guarding or rebound. I have discussed the case with NAIMA Campos. The above note reflects my findings, conclusions, and recommendations. Eliseo Vu MD Subjective Pt was seen and evaluated, chart reviewed No acute events noted overnight Did move her bowels Liquid, brown/green No longer has bloody bowel movement Did have cramping w/ BM c.diff negative culture pending Review of Systems Constitutional: no fever, no chills and no fatigue Respiratory: no cough and no dyspnea Cardiovascular: no chest pain and no radiating jaw, neck or arm pain Gastrointestinal: + abdominal pain and + diarrhea/loose stools; no coffee ground emesis, no hematemesis, no blood in stools and no melena Physical Exam Constitutional: well developed and well nourished; no acute distress Respiratory: normal respiratory effort, lungs clear to auscultation Cardiovascular: Rate/Rhythm: regular rate and regular rhythm Gastrointestinal (Abdomen): normal bowel sounds, soft, nontender, no hepatosplenomegaly Results & Data Vital Signs (Past 12 Hours) Vital Signs Temp Pulse Resp BP Pulse Ox 08/08/19 07:05 36.7 C 80 16 133/57 L 96 08/07/19 22:59 36.7 C 69 14 117/58 L 93
[2019-08-08] MEDS: INSULIN GLARGINE SOLOSTAR 100 UNITS/ML 3 ML PEN SQ SCH (08:53)
[2019-08-08] MEDS: GABAPENTIN 100 MG CAP PO SCH ×3 (08:53→21:05)
[2019-08-08] MEDS: SERTRALINE HCL 50 MG TABLET PO SCH (08:53)
[2019-08-08] MEDS: LOSARTAN POTASSIUM 25 MG TAB PO SCH (08:53)
[2019-08-08] MEDS: METOPROLOL SUCC 50MG EXT REL TAB PO SCH (08:53)
[2019-08-08] MEDS: PANTOprazole 40 MG TAB PO SCH ×2 (08:53→21:05)
[2019-08-08] MEDS: INSULIN ASPART 100 UNITS/ML 3 ML PEN SC SCH ×4 (08:54→21:59)
--- NOTE | 2019-08-08 10:21 | Hospitalist Progress Note ---
Date of Service August 08, 2019 Assessment & Plan (1) LGI bleed: History of ischemic colitis however, based on history this appears more to be infectious diarrhea. C. difficile is negative. Fevers, chills, abdominal pain, nausea has subsided. Bloody bowel movements have resolved and she is having bowel movements that are liquid. She still apathetic to food however tolerating liquids. Continue supportive care. Continue to monitor. Appreciate GI recommendations. (2) Acute blood loss anemia: Secondary to hematochezia. No indication for transfusion at this point. Continue supportive care. (3) DMII (diabetes mellitus, type 2): Glucose controlled on basal bolus insulin. Continue to trend. (4) Generalized anxiety disorder: Continue sertraline per home regimen. (5) HTN (hypertension): Controlled, continue losartan per home regimen. (6) DVT prophylaxis: SCDs, chemoprophylaxis contraindicated in setting of hematochezia Full code Disposition-continue to monitor in the hospital. Jazmyn Stanford DO [facility] Hospitalist Subjective Doing well today, still apathetic to food. Reports some pain and abdominal area generalized. Moving bowels but no blood present. Review of Systems Review of Systems: All systems reviewed & are unremarkable except as noted in HPI & below Physical Exam Physical Exam: CONSTITUTIONAL: WNWD, vitals as above, generally well- appearing EYES: normal conjunctivae, no scleral icterus ENT: MMM RESPIRATORY: clear to auscultation bilaterally, no crackles, rales or wheezes, normal respiratory effort CARDIOVASCULAR: regular rate and rhythm, S1 and 2 heard without murmurs, gallops or rubs, no JVD, no peripheral edema GASTROINTESTINAL: Hyperactive bowel sounds, soft, tender to palpation in lower abdomen, nondistended MUSCULOSKELETAL: strength 5/5 throughout, head is normocephalic and atraumatic SKIN: warm and dry NEUROLOGIC: CN 2-12 grossly intact, no sensory deficit, normal cognition, normal speech, no gross focal deficits. PSYCHIATRIC: alert cooperative and oriented to person, place and time. Results & Data Vital Signs (Past 12 Hours) Vital Signs Temp Pulse Resp BP Pulse Ox 08/08/19 07:05 36.7 C 80 16 133/57 L 96 08/07/19 22:59 36.7 C 69 14 117/58 L 93
[2019-08-08] MEDS: MoRPHine SULFATE 4 MG/ML 1 ML CARP\\VIAL IV PRN ×2 (11:00→21:01)
[2019-08-08] MEDS: SODIUM CHLORIDE 0.9% 1000ML 1,000 ML IV SCH ×2 (11:01→18:35)
[2019-08-08] MEDS: SIMVASTATIN 20 MG TAB PO SCH (21:05)
[2019-08-09 06:24] LABS: Hemoglobin 8.4 g/dL (12.0-16.0); Mean Corpuscular Hemoglobin 23.8 pg (25-34); Mean Corpuscular Volume 79.3 fL (80-100); Mean Platelet Volume 10.7 fL (7.4-10.4); Platelet Count 227 K/uL (130-400); RDW Coefficient of Variation 15.2 % (11.5-14.5); RDW Standard Deviation 44.4 fL (36.4-46.3); Red Blood Count 3.53 M/uL (4.2-5.4); White Blood Count 10.36 K/uL (4.8-10.8)
[2019-08-09 07:04] LABS: BUN Creatinine Ratio 17.8 (10-20); Calcium 7.7 mg/dl (8.5-10.1); Creatinine Clr Calc Pharmacy 62.5 ml/min; Est GFR (African American) 80.5; Est GFR (Non-African American) 69.4; Magnesium 1.9 mg/dl (1.8-2.4); Potassium 3.5 mmol/L (3.5-5.1)
[2019-08-09] MEDS: GABAPENTIN 100 MG CAP PO SCH ×3 (07:25→21:28)
[2019-08-09] MEDS: PANTOprazole 40 MG TAB PO SCH ×2 (07:26→21:28)
[2019-08-09] MEDS: METOPROLOL SUCC 50MG EXT REL TAB PO SCH (07:27)
[2019-08-09] MEDS: LOSARTAN POTASSIUM 25 MG TAB PO SCH (07:27)
--- NOTE | 2019-08-09 08:22 | Gastroenterology Progress Note ---
Date of Service August 09, 2019 Assessment & Plan (1) Bloody diarrhea: 69 year old female with history of ischemic colitis w/ lower abd cramping, diarrhea x 48 hours now w/ report of rectal bleeding. There is CT evidence of wall thickening and mild pericolonic inflammatory change involving the splenic flexure to the mid sigmoid colon. C.diff negative Culture negative Advance as tolerated Agree w/ Iv fluid hydration Bentyl PRN Analgesia PRN Trend HGB (8.4 down from baseline 11) Monitor and document GI output Transfuse PRN HGB < 8 MRA prior to discharge Thank you for allowing us to participate in the care of this patient. Please call with any acute changes, questions or concerns. Please see addendum below with additional recommendation from my supervising physician. Supervising Physician Co-Signing Physician Notes I have performed a history and physical examination of this patient and reviewed the electronic medical record. Specifically, on physical examination there is mild LLQ tenderness. I have discussed the case with NAIMA Campos. The above note reflects my findings, conclusions, and recommendations. Eliseo Vu MD Subjective Pt was seen and evaluated, chart reviewed MRA post-poned due to concern pt unable to sit still CTA ordered but cancelled given concern of contrast allergy Pt has had two CT scans in past year Did premedicate No facial edema, SOB, breathing difficulty, anaphylaxis history reported Notes her abd pain is less severe this AM Intermittent Cramping Left sided Has had two BMs since yesterday AM evaluation Liquid, brown/green No longer has bloody stools Review of Systems Constitutional: no fever, no chills and no fatigue Respiratory: no cough and no dyspnea Cardiovascular: no chest pain and no radiating jaw, neck or arm pain Gastrointestinal: no abdominal pain, no coffee ground emesis, no hematemesis, no blood in stools and no melena Physical Exam Constitutional: WD/WN, vitals as above well developed and well nourished; no acute distress and not ill appearing Respiratory: normal respiratory effort, lungs clear to auscultation normal respiratory effort Cardiovascular: Rate/Rhythm: regular rate and regular rhythm Gastrointestinal (Abdomen): normal bowel sounds, soft, nontender, no hepatosplenomegaly Skin: no rashes, warm and dry Results & Data Vital Signs (Past 12 Hours) Vital Signs Temp Pulse Pulse Resp BP BP Pulse Ox 08/09/19 08:02 36.4 C L 60 17 122/68 94 08/08/19 23:30 36.7 C 60 17 122/62 93
[2019-08-09] MEDS: INSULIN GLARGINE SOLOSTAR 100 UNITS/ML 3 ML PEN SQ SCH (09:03)
[2019-08-09] MEDS: INSULIN ASPART 100 UNITS/ML 3 ML PEN SC SCH ×4 (09:04→21:44)
[2019-08-09] MEDS: SERTRALINE HCL 50 MG TABLET PO SCH (09:08)
[2019-08-09] MEDS ORDERED: GADOBUTROL 65ML VIAL IV PRN (12:05)
--- NOTE | 2019-08-09 12:20 | Magnetic Resonance Report ---
MR angio abdomen wo/w con CLINICAL HISTORY: 69 years-old Female presenting with diarrhea, ischemic colitis, rectal bleeding. TECHNIQUE: MR angiography of the abdomen was performed before and after the administration of intrave nous contrast. 3-D volumetric and/or maximum intensity projection (MIP) images were subsequently abimbola nstructed for review. IV contrast: 7.5 mL of Gadavist. Stenosis measurements were based on NASCET-lik e criteria. COMPARISON: CT from 08/06/2019. FINDINGS: Localizer images: Posterior lumbar fusion hardware. VASCULATURE: Aorta normal in course and caliber. Mild stenosis of the celiac artery origin likely rel ates to the phase of respiration. No poststenotic dilatation of the celiac artery. Conventional hepat ic arterial anatomy. Superior mesenteric and inferior mesenteric arteries widely patent at their orig ins and along the courses. Common, internal, and external iliac arteries patent. Single renal arterie s bilaterally. IVC opacifies normally. Mildly prominent veins in the region of the rectum could suggest the presence of internal hemorrhoids. Lung bases: Normal heart size. No pericardial or pleural effusion. Lung base clear. Liver: Normal morphology. Mildly T2 hyperintense complex lesion in the posterior right hepatic lobe m easuring 6.0 cm in diameter with an enhancement pattern characteristic of hemangioma. Patent hepatic vasculature. Biliary: No intrahepatic or extrahepatic biliary ductal dilatation. Normal gallbladder. Pancreas: Moderate parenchymal atrophy. Spleen: Normal. Adrenal glands: Normal. Kidneys and ureters: Normal. No hydronephrosis. Bowel: Interval decrease in wall thickening and pericolonic inflammatory change of the descending col on and sigmoid colon in comparison to prior CT. Mucosal hyperemia persists as well as mild prominence of the vasa recta. Mild diverticulosis of the distal sigmoid colon noted. The appendix is normal. No bowel obstruction. Peritoneal cavity: No free fluid. Lymph nodes: No enlarged lymph nodes in the abdomen. Abdominal wall: Normal. Musculoskeletal: Normal. IMPRESSION: 1. Mildly prominent veins in the region the rectum could suggest the presence of internal hemorrhoid s or could be normal. 2. Normal arterial vasculature. 3. Slight interval decrease in the degree of inflammatory change associated with the descending colo n and sigmoid colon suggesting resolving colitis. 4. Mild diverticulosis of the distal sigmoid colon. No diverticulitis. Electronically signed by: Caleb Carver M.D. 08/09/2019 12:19 PM
--- NOTE | 2019-08-09 16:56 | Hospitalist Progress Note ---
Date of Service August 09, 2019 Assessment & Plan (1) LGI bleed: History of ischemic colitis however, based on history this appears more to be infectious diarrhea. C. difficile is negative. Stool culture is also negative fevers, chills, abdominal pain, nausea has subsided. She still apat hetic to food however tolerating p.o. Continue supportive care. Continue to monitor. (2) Acute blood loss anemia: Secondary to hematochezia. No indication for transfusion at this point. Continue supportive care. (3) DMII (diabetes mellitus, type 2): Glucose controlled on basal bolus insulin. Continue to trend. (4) Generalized anxiety disorder: Continue sertraline per home regimen. (5) HTN (hypertension): Controlled, continue losartan per home regimen. (6) DVT prophylaxis: SCDs, chemoprophylaxis contraindicated in setting of hematochezia Full code Disposition-continue to monitor in the hospital. Jazmyn Stanford, [facility] Hospitalist Subjective Doing well with some pain overnight requiring morphine. She is still somewhat apathetic to food but is tolerating it. Clinically improved. Leukocytosis has resolved. Review of Systems Review of Systems: All systems reviewed & are unremarkable except as noted in HPI & below Physical Exam Physical Exam: CONSTITUTIONAL: WNWD, vitals as above, generally well- appearing EYES: normal conjunctivae, no scleral icterus ENT: MMM RESPIRATORY: clear to auscultation bilaterally, no crackles, rales or wheezes, normal respiratory effort CARDIOVASCULAR: regular rate and rhythm, S1 and 2 heard without murmurs, gallops or rubs, no JVD, no peripheral edema GASTROINTESTINAL: Hyperactive bowel sounds, soft, tender to palpation in right upper quadrant and right lower quadrant, nondistended MUSCULOSKELETAL: strength 5/5 throughout, head is normocephalic and atraumatic SKIN: warm and dry NEUROLOGIC: CN 2-12 grossly intact, no sensory deficit, normal cognition, normal speech, no gross focal deficits. PSYCHIATRIC: alert cooperative and oriented to person, place and time. Results & Data Vital Signs (Past 12 Hours) Vital Signs Temp Pulse Pulse Resp BP BP Pulse Ox 08/09/19 15:02 36.8 C 57 L 18 150/75 H 96 08/09/19 11:14 36.8 C 60 16 120/72 97 08/09/19 08:02 36.4 C L 60 17 122/68 94 Laboratory Results Short CBC 08/09/19 Range/Units 05:51 WBC 10.36 (4.8-10.8) K/uL Hgb 8.4 L (12.0-16.0) g/dL Hct 28.0 L (37-47) % Plt Count 227 (130-400) K/uL BMP 08/09/19 05:51 Sodium 141 Potassium 3.5 Chloride 110 H Carbon Dioxide 26 BUN 15 Creatinine 0.86 Glucose 89 Calcium 7.7 L Medications Administered Current Inpatient Medications Acetaminophen (Tylenol) 650 mg PO Q4H PRN PRN Reason: pain/fever Stop: 09/06/19 01:43 Hydrocodone Bitart/Acetaminophen ([place] ) 1 tab PO Q6H PRN PRN Reason: pain Stop: 08/21/19 01:43 Last Admin: 08/07/19 16:09 Dose: 1 tab Documented by: Dextrose (Dextrose 50%) 25 - 50 ml IV UD PRN; Protocol PRN Reason: Hypoglycemia Protocol Stop: 09/06/19 01:43 Gabapentin (Neurontin) 300 mg PO TID [facility] Stop: 09/06/19 08:59 Last Admin: 08/09/19 13:04 Dose: 300 mg Documented by: Gadobutrol (Gadavist 65ml) 7.5 ml IV ONCE PRN PRN Reason: Interaction Checking Stop: 08/13/19 12:04 Last Admin: 08/09/19 12:06 Dose: 7.5 ml Documented by: Glucagon (Glucagen) 1 mg SQ UD PRN; Protocol PRN Reason: Hypoglycemia Protocol Stop: 09/06/19 01:43 Glucose (Glucose 40%) 15 - 30 gm PO UD PRN; Protocol PRN Reason: Hypoglycemia Protocol Stop: 09/06/19 01:43 Glucose (Dex4 Glucose) 4 - 8 tabs PO UD PRN; Protocol PRN Reason: Hypoglycemia Protocol Stop: 09/06/19 01:43 Promethazine HCl 12.5 mg/ (Sodium Chloride) 50.5 mls @ 202 mls/hr IV Q6H PRN PRN Reason: Nausea And Vomiting Stop: 09/06/19 01:43 Insulin Aspart (Novolog Flexpen) 0 units SC ACHS [facility] Stop: 09/06/19 01:43 Last Admin: 08/09/19 13:01 Dose: Not Given Documented by: Insulin Glargine (Lantus Solostar Pen) 5 units SQ DAILY [facility] Stop: 09/07/19 08:59 Last Admin: 08/09/19 09:03 Dose: 5 units Documented by: Lorazepam (Ativan) 1 mg PO Q8H PRN PRN Reason: Anxiety Stop: 09/06/19 01:43 Losartan Potassium (Cozaar) 25 mg PO QAM [facility] Stop: 09/06/19 08:59 Last Admin: 08/09/19 07:27 Dose: 25 mg Documented by: Metoprolol Succinate (Toprol Xl) 50 mg PO QAM [facility] Stop: 09/06/19 08:59 Last Admin: 08/09/19 07:27 Dose: 50 mg Documented by: Miscellaneous (Carbohydrates For Hypoglycemia) 15 - 30 gm PO UD PRN PRN Reason: Hypoglycemia Treatment Stop: 09/06/19 01:43 Morphine Sulfate (Morphine Sulfate) 4 mg IV Q6H PRN PRN Reason: Pain Stop: 08/21/19 01:43 Last Admin: 08/08/19 21:01 Dose: 4 mg Documented by: Pantoprazole Sodium (Protonix) 40 mg PO BID [facility] Stop: 09/06/19 08:59 Last Admin: 08/09/19 07:26 Dose: 40 mg Documented by: Sertraline HCl (Zoloft) 50 mg PO QAM [facility] Stop: 09/06/19 08:59 Last Admin: 08/09/19 09:08 Dose: 50 mg Documented by: Simvastatin (Zocor) 20 mg PO HS [facility] Stop: 09/06/19 20:59 Last Admin: 08/08/19 21:05 Dose: 20 mg Documented by:
[2019-08-09] MEDS: SIMVASTATIN 20 MG TAB PO SCH (21:28)
[2019-08-10 06:15] LABS: BUN Creatinine Ratio 13.7 (10-20); Calcium 8.3 mg/dl (8.5-10.1); Creatinine Clr Calc Pharmacy 62.5 ml/min; Est GFR (African American) 80.5; Est GFR (Non-African American) 69.4; Potassium 3.7 mmol/L (3.5-5.1)
[2019-08-10 06:54] LABS: Basophils # (auto) 0.03 K/uL (0-0.2); Basophils % (auto) 0.4 %; Eosinophils # (auto) 0.24 K/uL (0-0.5); Eosinophils % (auto) 3.5 %; Hematocrit (blood only) 29.4 % (37-47); Hemoglobin 8.9 g/dL (12.0-16.0); Immature Granulocytes # (auto) 0.03 K/uL (0.00-0.02); Immature Granulocytes % (auto) 0.4 %; Lymphocytes # (auto) 1.53 K/uL (1.2-3.4); Lymphocytes % (auto) 22.1 %; Mean Corpuscular Hemoglobin 23.9 pg (25-34); Mean Platelet Volume 10.6 fL (7.4-10.4); Monocytes # (auto) 0.68 K/uL (0.11-0.59); Monocytes % (auto) 9.8 %; Neutrophils # (auto) 4.42 K/uL (1.4-6.5); Neutrophils % (auto) 63.8 %; Platelet Count 240 K/uL (130-400); RDW Coefficient of Variation 14.8 % (11.5-14.5); RDW Standard Deviation 42.5 fL (36.4-46.3); Red Blood Count 3.72 M/uL (4.2-5.4); White Blood Count 6.93 K/uL (4.8-10.8)
[2019-08-10 07:07] LABS: Mean Corpuscular Hgb Conc 30.3 g/dL (32-36)
[2019-08-10] MEDS: LOSARTAN POTASSIUM 25 MG TAB PO SCH (09:17)
[2019-08-10] MEDS: METOPROLOL SUCC 50MG EXT REL TAB PO SCH (09:17)
[2019-08-10] MEDS: GABAPENTIN 100 MG CAP PO SCH (09:17)
[2019-08-10] MEDS: PANTOprazole 40 MG TAB PO SCH (09:17)
[2019-08-10] MEDS: SERTRALINE HCL 50 MG TABLET PO SCH (09:17)
[2019-08-10] MEDS: INSULIN GLARGINE SOLOSTAR 100 UNITS/ML 3 ML PEN SQ SCH (09:18)
[2019-08-10] MEDS: INSULIN ASPART 100 UNITS/ML 3 ML PEN SC SCH (09:19)
--- NOTE | 2019-08-10 09:21 | Gastroenterology Progress Note ---
Date of Service August 10, 2019 Assessment & Plan (1) Bloody diarrhea: 69 year old female with history of ischemic colitis w/ lower abd cramping, diarrhea x 48 hours now w/ report of rectal bleeding. There is CT evidence of wall thickening and mild pericolonic inflammatory change involving the splenic flexure to the mid sigmoid colon. C.diff negative Culture negative Advance diet as tolerated Agree w/ Iv fluid hydration Bentyl PRN Analgesia PRN No GI contraindication to diet. Will sign off. Thank you for allowing us to participate in the care of this patient. Please call with any acute changes, questions or concerns. Please see addendum below with additional recommendation from my supervising physician. Supervising Physician Co-Signing Physician Notes I have discussed the management with Kelly and I agree with her assessment and plan in its entirety. Subjective Pt was seen and evaluated, chart reviewed Had MRA Feeling better No abd pain No nausea, vomiting Stools starting to form No black or bloody stools 1 BM in the past 24 hours No fever, chills, CP, SOB MRA: Mildly prominent veins in the region the rectum could suggest the presence of internal hemorrhoids or could be normal. Normal arterial vasculature. Slight interval decrease in the degree of inflammatory change associated with the descending colon and sigmoid colon suggesting resolving colitis.Mild diverticulosis of the distal sigmoid colon. No diverticulitis Review of Systems Constitutional: no fever and no chills Respiratory: no cough and no dyspnea Cardiovascular: no chest pain and no radiating jaw, neck or arm pain Gastrointestinal: no abdominal pain, no heartburn, no coffee ground emesis, no hematemesis, no blood in stools and no melena Physical Exam Constitutional: WD/WN, vitals as above Respiratory: normal respiratory effort, lungs clear to auscultation Cardiovascular: Rate/Rhythm: regular rate and regular rhythm Gastrointestinal (Abdomen): normal bowel sounds, soft, nontender, no hepatosplenomegaly Results & Data Vital Signs (Past 12 Hours) Vital Signs Temp Pulse Pulse Resp BP BP Pulse Ox 08/10/19 07:32 36.5 C 63 18 155/70 H 96 08/09/19 23:57 59 L 168/69 H 08/09/19 23:17 36.7 C 61 18 163/71 H 97
--- NOTE | 2019-08-10 11:49 | Discharge Summary ---
Date of Service August 10, 2019 Admission HPI Per Admitting Provider History obtained from patient and records. Medical history significant for hypertension, hyperlipidemia, DM 2 diet- controlled, anxiety/mood disorder, past tobacco abuse, history diverticulosis/hx ischemic colitis as per records. Recent confinement June 2018 for bloody diarrhea. Diverticulosis found on colonoscopy. Recent confinement May 2019 under [facility] service for reconstructive surgery. Yesterday morning patient noted bloody diarrhea more than 10 episodes associated with achy left-sided abdominal cramping with nausea, no emesis. No fever, no chills. No known sick contacts Patient ate at a buffet restaurant at a [employer] resort 2 days ago. No other recent antibiotics except for preop Ancef last May 2019. Patient brought to the emergency room. Medical History as above Surgical History : Breast biopsy, breast lesion excision, cataract surgery, DENIS Family History : No IBD the patient's knowledge; heart disease, lung cancer, di abetes Personal/Social history : Past tobacco abuse, no EtOH intake, retired [employer] employee Admission Exam Per Admitting Provider GENERAL: Comfortable, pleasant, looks younger than stated age, no respiratory distress, lying on the right lateral decubitus position SKIN: Pallor , warm HEENT: Pale palpebral conjunctivae, no ptosis, dry buccal mucosa NECK : Supple, no tenderness CHEST : CTA, no tenderness HEART : RRR, systolic murmur ABDOMEN: Some distention, left-sided abdominal tenderness EXTREMITIES : Minimal LE swelling, no LE tenderness, no other conspicuous deformities noted NEUROLOGIC : Coherent, no facial asymmetry, no other gross focality Principal Diagnosis colitis-infectious vs ischemic [place] GI bleed acute blood loss anemia 2/2 hematochezia-resolved. Discharge Data Allergies Allergy/AdvReac Type Severity Reaction Status Date / Time ciprofloxacin [From Cipro] Allergy Intermediate chest Verified 08/06/19 22:57 pain, nausea, vomiting, rash Iodinated Contrast Media Allergy Intermediate nausea, Verified 08/06/19 22:57 vomiting, diarrhea latex Allergy Intermediate rash, Verified 08/06/19 22:57 blisters with "latex bandaids" Quinolones Allergy Intermediate chest Verified 08/06/19 22:57 pain, nausea, vomiting, rash with cipro/ + tachycardia nickel Allergy Mild redness, Verified 08/06/19 22:57 itching Sulfa (Sulfonamide Allergy Mild rash Verified 08/06/19 22:57 Antibiotics) metals Allergy Severe lip Uncoded 08/06/19 22:57 tingling with "metal in lipstick" per skin testing Consultations 08/06/19 23:14 ED Decision to Admit Stat 08/07/19 10:41 Consult Gastroenterology Routine Ordered Studies 08/06/19 19:56 CT abd pelvis IV con only Stat 08/09/19 11:06 MR angio abdomen wo/w con Routine Hospital Course (1) Colitis: (2) LGI bleed: History of ischemic colitis however, may be infectious despite normal stool culture and negative c-diff. Fevers, chills, abdominal pain, nausea has subsided. Antibiotics were initially started but stopped on HD2 with continued clinical improvement. Bloody bowel movements resolved and she started reporting consistency with stools. GI was involved in the case and did not recommend ensoscopy. She improved with supportive care. (3) Acute blood loss anemia: Secondary to hematochezia. No indication for transfusion at this point. Monitor H/H as outpatient per PCP (4) DMII (diabetes mellitus, type 2): Glucose controlled on basal bolus insulin. Transition back to home regimen at discharge. (5) Generalized anxiety disorder: Continue sertraline per home regimen. (6) HTN (hypertension): Controlled, continue losartan per home regimen. Total Time Total Time Spent Total Time Spent (In Minutes): 60 Total Time Includes: Examination of the Patient, Discharge Planning, Medication Reconciliation, Communication With Other Providers and Other (arrange outpatient follow-up) Discharge Plan Discharge Items Patient Disposition: Home - Self-Care Reason For Visit: COLITIS Discharge Diagnosis: Colitis Condition on Discharge: Good Health Concerns: Anemia-need to follow-up with primary care physician regarding monitoring of this. Activity: Resume your previous activity Non-emergency contact: Primary Care Provider Call non-emergency contact if: you have any medication questions, your symptoms worsen, your pain is not controlled, your pain is worsening, your pain is unusual for you, your pain is concerning for you and you have a fever Follow-up/Referrals: Caleb Randle MD [Primary Care Provider] - Diet: Carb Consistent or DM2 Diet Texture: Dental soft (bite-sized) Addtl Attending Provider Instructions: Please take all medications as instructed on discharge list below. Please avoid ketorolac until diarrhea/illness has completely resolved and you discuss this with your PCP at follow-up. Please follow-up with your primary care provider (PCP) within one week of discharge to ensure your symptoms are continuing to improve, and to monitor your anemia. 08/13/2019 9:00 AM Caleb Randle MD [facility] It was a pleasure taking care of you! Please call if you have any questions or problems. You can reach a [facility] hospitalist on duty at [facility] 24 hours a day by calling [phone]. Take care of yourself. Jazmyn Stanford DO [facility] Hospitalist Pending Studies at Discharge: Yes Studies:: Final stool culture pending which is negative at time of discharge. Stand-Alone Forms: My [facility] Medications and DC Order Prescriptions: Continued lorazepam [Ativan] 0.5 mg Tablet 1 mg PO Q8H PRN (Reason: Anxiety) Qty: 0 RF: 0 dicyclomine 20 mg Tablet 20 mg PO DAILY PRN (Reason: Abdominal Discomfort) Qty: 0 RF: 0 aspirin [Aspir-81] 81 mg Tablet,Delayed Release (Dr/Ec) 81 mg PO QAM Qty: 0 RF: 0 hydrocodone-acetaminophen [[place]] 10-325 mg tablet 1 tab PO Q6H PRN (Reason: pain) Qty: 40 RF: 0 metoprolol succinate 50 mg Tablet Extended Release 24 Hr 50 mg PO QAM RF: 0 sertraline [Zoloft] 100 mg Tablet 50 mg PO QAM RF: 0 meclizine 12.5 mg Tablet 12.5 mg PO BID PRN (Reason: Vertigo) RF: 0 pantoprazole [Protonix] 40 mg Tablet,Delayed Release (Dr/Ec) 40 mg PO BID RF: 0 simvastatin 20 mg Tablet 20 mg PO HS RF: 0 losartan 25 mg Tablet 25 mg PO QAM RF: 0 gabapentin 100 mg Capsule 300 mg PO TID RF: 0 Citrucel (sucrose) Powder 1 tbsp PO QAM RF: 0 Discontinued ketorolac 10 mg tablet 10 mg PO Q8H PRN (Reason: Pain) RF: 0 Discharge Orders: Discharge Order (Routine); Ordered 08/10/19 Ordered By: Jazmyn Leon/Other Patient Handouts: Diabetes Healthy Meals Admission Data Admit Date/Time: 08/07/19 00:47 Attending Provider: Jazmyn Stanford Admit Provider: Jackson Narvaez Primary Care Provider: Caleb Randle Other Providers: Jackson Narvaez ; Eliseo Vu Other Interventions: Discharge Summary Assessment (RN) Last Done: 08/10/19 12:20 DC Date/Time DO NOT enter until pt leaves facility: 08/10/19 13:03
== END 2019-08-10 13:03 | disposition home or self-care (01) | DRG 378 ==
LOC: ED 18:57 → 3W 08-07 00:47

== ENCOUNTER 2025-06-17 12:18 | Inpatient (IN) ==
--- NOTE | 2025-06-17 12:31 | Emergency Department Note ---
Impression & Plan Acute CVA (cerebrovascular accident), Distal paresthesia, Leg weakness, Arm weakness ED Provider Note NAME: HUMAIRA CLAUDIO AGE: 75 SEX: F : 1950 ARRIVES VIA: Walk-In INFORMANT: Patient ED PROVIDER(S): Jj Mccarty DO CHIEF COMPLAINT: Right-sided numbness HPI: Patient is a 75-year-old female who presents ER with a past medical history of hypertension, diabetes, anxiety for right arm and leg numbness. She notes that this started initially around 2:00 yesterday with the right arm. When she woke up this morning she noticed it was the right leg. She has been dragging her leg with walking. Denies any headache or change in vision. No chest pain or shortness of breath. No dysuria, urgency or frequency. No other exacerbating or remitting factors. ADDITIONAL HISTORY OBTAINED: Per HPI Chronic Medical/Social Conditions Affecting Care: Per HPI PAST MEDICAL HISTORY:See Below PAST SURGICAL HISTORY:See Below FAMILY HISTORY:See Below SOCIAL HISTORY:See Below HOME MEDICATIONS:See Below ALLERGIES:See Below VITALS:See Below PHYSICAL EXAMINATION: GENERAL: Sitting up in bed, alert, well appearing, well nourished, no distress, non-toxic EYE EXAM: normal conjunctiva. PERRL and EOM's intact. OROPHARYNX: no exudate, no erythema, lips, buccal mucosa, and tongue normal and mucous membranes are moist NECK: supple, no nuchal rigidity, no adenopathy, non-tender LUNGS: Clear to auscultation. Normal chest wall mechanics HEART: no murmurs, S1 normal and S2 normal ABDOMEN: abdomen soft, non-tender, normo-active bowel sounds, no masses, no rebound or guarding. BACK: Back is symmetrical on inspection and there is no deformity, no midline tenderness, no CVA tenderness. SKIN: no rashes and no bruising UPPER EXTREMITIES: upper extremities are grossly normal. LOWER EXTREMITIES: No pitting edema. NEURO EXAM: Normal sensorium, cranial nerves II-XII intact, normal speech, right arm and right leg slightly weak in comparison to the left 4 out of 5. No obvious drift. MEDICAL DECISION MAKING: Patient is a 75-year-old female who presents to the ER for right arm and right leg paresthesias in combination with weakness. Stroke alert was initially called from triage as this was a wake-up stroke. After discussion with patient it was discovered that symptoms started yesterday around 2 PM in the afternoon. She is not a TNK candidate. CTs were obtained and showed no LVO. Discussed with [facility] telestroke and they did a phone consult and recommended admission for additional workup. Patient family updated at bedside. Consults/Care Managements Discussions: Per MDM Triage Nursing notes reviewed. Limited review of prior medical records performed Vital Signs: reviewed and remarkable for htn Differential diagnosis: Differential Diagnosis includes but is not limited to ischemic Stroke, hemorrhagic stroke, bells palsy, mass, neoplasm, migraine headache, seizure, subarachnoid hemorrhage, TIA, and transient global amnesia. ER treatment provided: See below Diagnostics interpreted by me include EKG and cardiac monitoring as listed below: -Cardiac Monitoring: An order was placed for continuous cardiac monitoring. The monitor shows a rate of 60 with sinus rhythm. -ECG: Sinus rhythm rate of 73 Normal axis No PVCs QTc 467 -Laboratory studies:Interpreted by me as stated above in MDM and shown below. Imaging studies: Xrays: As interpreted by me: None CTs show: CT of the head per my pulm interpretation shows no obvious large mass CT of the head and cervical spine was negative per radiology Procedures:none Critical Care: None Past Med/Surg History Problem List (Updated 06/17/25 @ 18:23 by Jj Mccarty DO) Arm weakness (Acute) Leg weakness (Acute) Distal paresthesia (Acute) Acute CVA (cerebrovascular accident) (Acute) Right sided weakness Status post lumbar spine surgery for decompression of spinal cord Colitis Acute blood loss anemia HTN (hypertension) (Acute) Generalized anxiety disorder DMII (diabetes mellitus, type 2) DVT prophylaxis LGI bleed Anemia (Acute) Hemorrhagic colitis (Acute) Esophageal reflux Irritable bowel syndrome Bloody diarrhea (Acute) Encounter for pre-operative examination Dyslipidemia Anxiety Hypertension Medical History (Updated 06/17/25 @ 18:23 by Jj Mccarty DO) Colitis GERD (gastroesophageal reflux disease) controlled Pre-diabetes Vertigo Osteoarthritis Depression Chronic back pain RLE radiculopathy Surgical History Hx of cataract surgery bilateral History of cardiac cath 2013= no stents Hx of tubal ligation History of back surgery multiple; most recent L5-S1 decompression: 10/05/18: Grade view 1, MAC#3, ETT 7.5 at [facility] H/O: hysterectomy total Family History Mother Family history of diabetes mellitus Son Family history of diabetes mellitus Other Heart disease Social History Smoking Status: Never smoker Second Hand Exposure: No; Do You Dip or Chew Tobacco: No; Hx Alcohol Use: No Hx Substance Use: No Preferred Language: Korean Communication Ability: Effective 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 Beliefs That Will Affect Care: None Current Living Situation: Spouse Current Living Situation Comment: [facility] Feels Safe at Home: Yes Safety Concerns: Feels Safe At This Time Assistive Devices: Denture - Upper and Glasses Allergies Allergies Allergy/AdvReac Type Severity Reaction Status Date / Time ciprofloxacin [From Cipro] Allergy Intermediate chest Verified 06/17/25 13:52 pain, nausea, vomiting, rash Iodinated Contrast Media Allergy Intermediate nausea, Verified 06/17/25 13:52 vomiting, diarrhea latex Allergy Intermediate rash, Verified 06/17/25 13:52 blisters with "latex bandaids" Quinolones Allergy Intermediate chest Verified 06/17/25 13:52 pain, nausea, vomiting, rash with cipro/ + tachycardia nickel Allergy Mild redness, Verified 06/17/25 13:52 itching Sulfa (Sulfonamide Allergy Mild rash Verified 06/17/25 13:52 Antibiotics) metals Allergy Severe lip Uncoded 06/17/25 13:52 tingling with "metal in lipstick" per skin testing Home Meds Home Medications Medication Instructions Recorded Confirmed dicyclomine 20 mg tablet 20 mg PO DAILY PRN Abdominal 06/16/09 06/17/25 Discomfort ##0 lorazepam 0.5 mg tablet (Ativan) 0.25 mg PO HS PRN Anxiety ##0 06/16/09 06/17/25 losartan 25 mg tablet 25 mg PO QAM 06/24/18 06/17/25 meclizine 12.5 mg tablet 12.5 mg PO BID PRN Vertigo 06/24/18 06/17/25 pantoprazole 40 mg tablet,delayed 40 mg PO DAILYBB 06/24/18 06/17/25 release (Protonix) sertraline 100 mg tablet (Zoloft) 50 mg PO QAM 06/24/18 06/17/25 simvastatin 20 mg tablet 20 mg PO HS 06/24/18 06/17/25 aspirin 81 mg tablet,delayed 81 mg PO DAILY 06/17/25 06/17/25 release losartan 25 mg tablet 12.5 mg PO HS 06/17/25 06/17/25 Results & Data (ED) Vital Signs Vital Signs - 24 hr 06/17/25 12:24 06/17/25 12:25 06/17/25 12:45 Temperature 36.6 C Temperature Source Temporal Artery Scan Pulse Rate 77 Pulse Rate [Apical] 78 Pulse Rate from SpO2 Sensor Respiratory Rate 20 14 Respiratory Effort / Characteristics Non-Labored Respiratory Depth Normal Blood Pressure 176/78 H Blood Pressure [Right Arm] 173/121 H Blood Pressure Mean 110 Blood Pressure Mean [Right Arm] 138 Pulse Oximetry 98 98 Oxygen Delivery Method Room Air Room Air Sepsis Recent Fever Within 48 Hours No Sepsis New/Unexplained Change in Mental Status Yes Sepsis Action Taken by Nursing No Action Required 06/17/25 12:52 06/17/25 13:04 06/17/25 13:36 Temperature Temperature Source Pulse Rate 76 57 L Pulse Rate [Apical] 64 Pulse Rate from SpO2 Sensor 54 L Respiratory Rate 16 17 Respiratory Effort / Characteristics Respiratory Depth Blood Pressure 154/108 H Blood Pressure [Right Arm] 186/78 H Blood Pressure Mean 123 Blood Pressure Mean [Right Arm] 114 Pulse Oximetry 98 97 Oxygen Delivery Method Sepsis Recent Fever Within 48 Hours Sepsis New/Unexplained Change in Mental Status Sepsis Action Taken by Nursing Laboratory Data 06/17/25 12:43 06/17/25 12:43 Lab Results 06/17/25 06/17/25 Range/Units 12:43 12:44 WBC 5.76 (4.8-10.8) K/ul RBC 4.30 (4.20-5.40) M/uL Hgb 12.0 (12.0-16.0) g/dl Hct 36.1 L (37.0-47.0) % MCV 84.0 (80.0-100.0) fL MCH 27.9 (25.0-34.0) pg MCHC 33.2 (32.0-36.0) g/dL RDW Std Deviation 39.6 (36.4-46.3) fL RDW Coeff of Kandis 13.0 (11.5-14.5) % Plt Count 188 (130-400) K/uL MPV 11.1 (9.4-12.4) fL Immature Gran % (Auto) 0.3 % Neut % (Auto) 58.5 % Lymph % (Auto) 30.0 % [place] % (Auto) 9.0 % Eos % (Auto) 1.7 % Baso % (Auto) 0.5 % Neut # (Auto) 3.36 (1.40-6.50) K/uL Lymph # (Auto) 1.73 (1.20-3.40) K/uL [place] # (Auto) 0.52 (0.11-0.59) K/uL Eos # (Auto) 0.10 (0.00-0.50) K/uL Baso # (Auto) 0.03 (0.00-0.20) K/uL Immature Gran # (Auto) 0.02 (0.01-0.20) K/uL PT 11.6 (9.0-12.0) Seconds INR 1.1 (0.9-1.1) APTT 27 (21-31) Seconds PTT Ratio 1.0 Sodium 133 L (136-145) mmol/L Potassium 4.0 (3.5-5.1) mmol/L Chloride 103 (98-107) mmol/L Carbon Dioxide 27 (21-32) mmol/L Anion Gap 3 (3-11) BUN 17 (6-23) mg/dl Creatinine 0.75 (0.6-1.2) mg/dl Est Cr Clr Drug Dosing 64.2 ml/min eGFR 83.49 BUN/Creatinine Ratio 22.7 H (10-20) Glucose 116 H (70-99(Fasting)) mg/dl POC Glucose 129 H (70-99) mg/dl Calcium 8.3 L (8.6-10.3) mg/dl Magnesium 1.8 (1.7-2.4) mg/dl Total Bilirubin 1.1 H (0.2-1.0) mg/dl AST 13 (13-39) U/L ALT 10 (7-52) U/L Alkaline Phosphatase 54 (34-104) U/L Troponin I High Sens 3.9 (0-14) pg/ml Total Protein 5.5 L (6.0-8.3) gm/dl Albumin 3.2 L (3.4-5.0) gm/dl Globulin 2.3 L (2.5-4.0) gm/dl Albumin/Globulin Ratio 1.4 (0.9-2) Blood Type O Positive Antibody Screen NEGATIVE Administered Medications Atorvastatin Calcium (Atorvastatin 40 Mg Tab) 80 mg PO QAM TARSHA Stop: 07/17/25 14:49 Last Admin: 06/17/25 17:56 Dose: 80 mg Documented By: DTT Discontinued Medications Ioversol (Optiray 320 125ml) 115 ml IV ONCE ONE Stop: 06/17/25 12:34 Last Admin: 06/17/25 12:33 Dose: 115 ml Documented By: KIKE Ondansetron HCl (Ondansetron Inj 2 Mg/Ml 2 Ml Vial) 4 mg IV NOW STA Stop: 06/17/25 12:24 Last Admin: 06/17/25 12:35 Dose: 4 mg Documented By: FAYE Imaging Data Radiologist's Impression: Head CT 06/17/25 12:22 CT SCAN OF THE BRAIN WITHOUT IV CONTRAST CLINICAL HISTORY: Neurological deficit. Stroke like symptoms. COMPARISON STUDY: CT of the brain dated 05/20/2025 TECHNIQUE: Unenhanced axial CT scan of the brain is performed from the vertex to the skull base. Images are reviewed in the axial, sagittal, coronal planes. A dose lowering technique was utilized adhering to the principles of ALARA. CT DOSE: 547.75 mGy.cm FINDINGS: Brain parenchyma: There is age-related involutional change noting mild to moderate subcortical and periventricular microangiopathic disease. There is no hemorrhage, mass effect, or evidence of acute territorial ischemia by CT criteria. Daniel-white matter differentiation is preserved. No extra-axial fluid collection is seen. Ventricles, sulci, cisterns: Prominent secondary to involutional change. Intracranial vasculature: There is atherosclerotic calcification of the cavernous carotid arteries. Calvarium: Unremarkable. Sinuses and mastoids: The visualized paranasal sinuses are clear. The mastoid air cells are well pneumatized. Orbits: The bony orbits are grossly intact. There are bilateral ocular lens implants. IMPRESSION: There is no hemorrhage, mass effect, or evidence of acute territorial ischemia by CT criteria. ACT 112: Negative or not required by law. Electronically signed by: John Odonnell M.D. 06/17/2025 12:45 PM Head CTA 06/17/25 12:22 CT ANGIOGRAM OF THE BRAIN CLINICAL HISTORY: Neurological deficit. Stroke like symptoms. Right-sided weakness. COMPARISON STUDY: Unenhanced CT of the brain performed concurrently on 06/17/2025. CT angiogram of the brain dated 05/20/2025. TECHNIQUE: Following the IV administration of 115 cc of Optiray 320, CT angiogram of the brain was performed from the skull base to the vertex. Images are reviewed in the axial, sagittal, and coronal planes. 3-D MIPS images are created and assessed. IV contrast was administered without complication. A dose lowering technique was utilized adhering to the principles of ALARA. FINDINGS: Brain parenchyma: There is no evidence of hemorrhage or mass effect noting angiographic phase technique. There is age-related involutional change noting mild to moderate subcortical and periventricular microangiopathic disease. There is no evidence of enhancing mass lesion on the angiogram phase images. No extra- axial fluid collection is seen. Daniel-white matter differentiation is preserved. Ventricles, sulci, and cisterns: Prominent secondary to involutional change. CT angiogram of the brain: The internal carotid arteries at the skull base are patent, as are the anterior and middle cerebral arteries. The vertebrobasilar system and posterior cerebral arteries are patent. The left vertebral artery is dominant. The right vertebral artery largely terminates as the PICA. There is origin of the right posterior cerebral artery. A tiny posterior communicating artery is noted on the left. There is no aneurysm, high-grade stenosis, or focal vessel cutoff identified throughout the intracranial circulation. Dural sinuses: Clear as visualized. Orbits: The bony orbits are intact. The orbital contents are normal as visualized noting bilateral ocular lens implants. Sinuses and mastoids: There is trace mucosal thickening within the maxillary antra. The paranasal sinuses are otherwise clear. The mastoid air cells are well pneumatized. Calvarium: Unremarkable. IMPRESSION: 1. There is no evidence of hemorrhage or mass effect noting angiographic phase technique. 2. Unremarkable CT angiogram of the brain. ACT 112: Negative or not required by law. Electronically signed by: John Odonnell M.D. 06/17/2025 12:57 PM Neck CTA 06/17/25 12:22 CT angio neck with con CLINICAL HISTORY: 75 years-old Female with neuro deficit, acute stroke suspected. COMPARISON STUDY: 05/20/2025 TECHNIQUE: Following the IV administration of 115 of Optiray, CT angiogram of the neck was performed from the aortic arch to the skull base. Images are reviewed in the axial, sagittal, and coronal planes. 3-D MIPS images are created and assessed. IV contrast was administered without complication. All measurements were calculated based on NASCET criteria. A dose lowering technique was utilized adhering to the principles of ALARA. CT DOSE: 410.23 mGy.cm FINDINGS: Imaged portions of the lung apices are unremarkable. There is no cervical lymphadenopathy. There are no cervical spine fractures. The left vertebral artery is dominant and patent. The right vertebral artery ends in PICA. The bilateral common carotid and cervical internal carotid arteries are patent. There is no aneurysm or dissection within the neck. IMPRESSION:Unremarkable CTA of the neck. ACT 112: Negative or not required by law. The above report was generated using voice recognition software. It may contain grammatical, syntax or spelling errors. Electronically signed by: Santo Valdez M.D. 06/17/2025 12:57 PM Discharge Plan Visit Data Chief Complaint: Stroke Alert Stated Complaint: RT ARM LEG TINGLING ED Provider: Jj Mccarty Discharge Problem: Acute CVA (cerebrovascular accident), Distal paresthesia, Leg weakness, Arm weakness Patient Disposition: Admitted As Inpatient Condition: Fair Discharge Instructions Interventions: ED Discharge Assessment Last Done: 06/17/25 14:23 Discharge Problem: Leg weakness Qualifiers: Laterality: unspecified laterality Qualified Code(s): R29.898 - Other symptoms and signs involving the musculoskeletal system
[2025-06-17] MEDS: OPTIRAY 320 125ml IV ONE (12:33)
[2025-06-17] MEDS: ONDANSETRON INJ 2 MG/ML 2 ML VIAL IV STA (12:35)
--- NOTE | 2025-06-17 12:47 | CT Scan Report ---
CT SCAN OF THE BRAIN WITHOUT IV CONTRAST CLINICAL HISTORY: Neurological deficit. Stroke like symptoms. COMPARISON STUDY: CT of the brain dated 05/20/2025 TECHNIQUE: Unenhanced axial CT scan of the brain is performed from the vertex to the skull base. Imag es are reviewed in the axial, sagittal, coronal planes. A dose lowering technique was utilized adheri ng to the principles of ALARA. CT DOSE: 547.75 mGy.cm FINDINGS: Brain parenchyma: There is age-related involutional change noting mild to moderate subcortical and pe riventricular microangiopathic disease. There is no hemorrhage, mass effect, or evidence of acute ter ritorial ischemia by CT criteria. Daniel-white matter differentiation is preserved. No extra-axial flui d collection is seen. Ventricles, sulci, cisterns: Prominent secondary to involutional change. Intracranial vasculature: There is atherosclerotic calcification of the cavernous carotid arteries. Calvarium: Unremarkable. Sinuses and mastoids: The visualized paranasal sinuses are clear. The mastoid air cells are well pneu matized. Orbits: The bony orbits are grossly intact. There are bilateral ocular lens implants. IMPRESSION: There is no hemorrhage, mass effect, or evidence of acute territorial ischemia by CT salazar orellana. ACT 112: Negative or not required by law. Electronically signed by: John Odonnell M.D. 06/17/2025 12:45 PM
[2025-06-17 12:58] LABS: Hematocrit (blood only) 36.1 % (37.0-47.0); Hemoglobin 12.0 g/dl (12.0-16.0); Immature Granulocytes # (auto) 0.02 K/uL (0.01-0.20); Immature Granulocytes % (auto) 0.3 %; Mean Corpuscular Hemoglobin 27.9 pg (25.0-34.0); Mean Corpuscular Volume 84.0 fL (80.0-100.0); Platelet Count 188 K/uL (130-400); RDW Standard Deviation 39.6 fL (36.4-46.3); Red Blood Count 4.30 M/uL (4.20-5.40); White Blood Count 5.76 K/ul (4.8-10.8)
--- NOTE | 2025-06-17 13:00 | CT Scan Report ---
CT ANGIOGRAM OF THE BRAIN CLINICAL HISTORY: Neurological deficit. Stroke like symptoms. Right-sided weakness. COMPARISON STUDY: Unenhanced CT of the brain performed concurrently on 06/17/2025. CT angiogram of th e brain dated 05/20/2025. TECHNIQUE: Following the IV administration of 115 cc of Optiray 320, CT angiogram of the brain was pe rformed from the skull base to the vertex. Images are reviewed in the axial, sagittal, and coronal pl anes. 3-D MIPS images are created and assessed. IV contrast was administered without complication. A dose lowering technique was utilized adhering to the principles of ALARA. FINDINGS: Brain parenchyma: There is no evidence of hemorrhage or mass effect noting angiographic phase techniq ue. There is age-related involutional change noting mild to moderate subcortical and periventricular microangiopathic disease. There is no evidence of enhancing mass lesion on the angiogram phase images . No extra-axial fluid collection is seen. Daniel-white matter differentiation is preserved. Ventricles, sulci, and cisterns: Prominent secondary to involutional change. CT angiogram of the brain: The internal carotid arteries at the skull base are patent, as are the ant erior and middle cerebral arteries. The vertebrobasilar system and posterior cerebral arteries are pa tent. The left vertebral artery is dominant. The right vertebral artery largely terminates as the PIC A. There is origin of the right posterior cerebral artery. A tiny posterior communicating arter y is noted on the left. There is no aneurysm, high-grade stenosis, or focal vessel cutoff identified throughout the intracranial circulation. Dural sinuses: Clear as visualized. Orbits: The bony orbits are intact. The orbital contents are normal as visualized noting bilateral oc ular lens implants. Sinuses and mastoids: There is trace mucosal thickening within the maxillary antra. The paranasal sin uses are otherwise clear. The mastoid air cells are well pneumatized. Calvarium: Unremarkable. IMPRESSION: 1. There is no evidence of hemorrhage or mass effect noting angiographic phase technique. 2. Unremarkable CT angiogram of the brain. ACT 112: Negative or not required by law. Electronically signed by: John Odonnell M.D. 06/17/2025 12:57 PM
--- NOTE | 2025-06-17 13:00 | CT Scan Report ---
CT angio neck with con CLINICAL HISTORY: 75 years-old Female with neuro deficit, acute stroke suspected. COMPARISON STUDY: 05/20/2025 TECHNIQUE: Following the IV administration of 115 of Optiray, CT angiogram of the neck was performed from the aortic arch to the skull base. Images are reviewed in the axial, sagittal, and coronal plane s. 3-D MIPS images are created and assessed. IV contrast was administered without complication. All m easurements were calculated based on NASCET criteria. A dose lowering technique was utilized adherin g to the principles of ALARA. CT DOSE: 410.23 mGy.cm FINDINGS: Imaged portions of the lung apices are unremarkable. There is no cervical lymphadenopathy. There are no cervical spine fractures. The left vertebral artery is dominant and patent. The right ve rtebral artery ends in PICA. The bilateral common carotid and cervical internal carotid arteries are patent. There is no aneurysm or dissection within the neck. IMPRESSION:Unremarkable CTA of the neck. ACT 112: Negative or not required by law. The above report was generated using voice recognition software. It may contain grammatical, syntax o r spelling errors. Electronically signed by: Santo Valdez M.D. 06/17/2025 12:57 PM
[2025-06-17 13:16] LABS: Alanine Aminotransferase 10.0 U/L (7-52); Albumin Globulin Ratio 1.4 (0.9-2); Alkaline Phosphatase 54.0 U/L (34-104); Anion Gap 3.0 (3-11); Bilirubin,Total 1.1 mg/dl (0.2-1.0); Blood Urea Nitrogen 17.0 mg/dl (6-23); Calcium 8.3 mg/dl (8.6-10.3); Carbon Dioxide 27.0 mmol/L (21-32); Chloride 103.0 mmol/L (98-107); Creatinine Clr Calc Pharmacy 64.2 ml/min; Globulin 2.3 gm/dl (2.5-4.0); Glucose 116.0 mg/dl (70-99(Fasting)); Magnesium 1.8 mg/dl (1.7-2.4); Potassium 4.0 mmol/L (3.5-5.1); Sodium 133.0 mmol/L (136-145); Total Protein 5.5 gm/dl (6.0-8.3)
[2025-06-17 13:44] LABS: INR 1.1 (0.9-1.1); Partial Thromboplastin Time 27 Seconds (21-31); Prothrombin Time 11.6 Seconds (9.0-12.0)
--- NOTE | 2025-06-17 13:53 | History & Physical Report ---
Date of Service June 17, 2025 Assessment & Plan (1) Right sided weakness: Plan 75F with PMH HTN, pre DM, ischemic colitis, HLD, anxiety who presents with RUE and RLE weakness. #R sided weakness -Affecting RLE and RUE. -Symptoms started yesterday -CTH, CTA without acute pathology. No LVO -Symptoms concerning for acute ischemic stroke -Out of TNK window. -EKG NSR Plan -ASA -Switch to High intensity statin -MRI brain -Assess stroke burden before determining need for DAPT -Appreciate neuro input -TTE w/o bubble study -Cardiac monitoring -PT/OT/HEAVY EQUIPMENT OPERATOR/PAVER -Permissive HTN for today. resume home BP regimen in AM #HTN -Resume home ARB tomorrow #Pre DM -Check A1c #Anxiety Continue home zoloft and prn ativan #HLD DC simvastatin, switch to lipitor 80 History of Present Illness Chief Complaint: R sided weakness Primary Care Provider: Caleb Randle MD Ms. Randall is a pleasant 75F with PMH HTN, pre DM, ischemic colitis, HLD, anxiety who presents with RUE and RLE weakness. started yesterday at 2 PM with paresthesia of her RLE. She thought she hurt her back lifting her elderly father yesterday. Her RLE then became weak and then her RUE developed similar paresthesia and weakness. She presented today for evaluation. Denies history of CVA. Patient denies F/C, CP, palpitations, SOB, dyspnea, abd pain, N/V/D Allergies Allergy/AdvReac Type Severity Reaction Status Date / Time ciprofloxacin [From Cipro] Allergy Intermediate chest Verified 06/17/25 13:52 pain, nausea, vomiting, rash Iodinated Contrast Media Allergy Intermediate nausea, Verified 06/17/25 13:52 vomiting, diarrhea latex Allergy Intermediate rash, Verified 06/17/25 13:52 blisters with "latex bandaids" Quinolones Allergy Intermediate chest Verified 06/17/25 13:52 pain, nausea, vomiting, rash with cipro/ + tachycardia nickel Allergy Mild redness, Verified 06/17/25 13:52 itching Sulfa (Sulfonamide Allergy Mild rash Verified 06/17/25 13:52 Antibiotics) metals Allergy Severe lip Uncoded 06/17/25 13:52 tingling with "metal in lipstick" per skin testing Home Medications Medication Instructions Recorded Confirmed Type dicyclomine 20 mg tablet 20 mg PO DAILY PRN Abdominal 06/16/09 06/17/25 History Discomfort ##0 lorazepam 0.5 mg tablet (Ativan) 0.25 mg PO HS PRN Anxiety ##0 06/16/09 06/17/25 History losartan 25 mg tablet 25 mg PO QAM 06/24/18 06/17/25 History meclizine 12.5 mg tablet 12.5 mg PO BID PRN Vertigo 06/24/18 06/17/25 History pantoprazole 40 mg tablet,delayed 40 mg PO DAILYBB 06/24/18 06/17/25 History release (Protonix) sertraline 100 mg tablet (Zoloft) 50 mg PO QAM 06/24/18 06/17/25 History simvastatin 20 mg tablet 20 mg PO HS 06/24/18 06/17/25 History aspirin 81 mg tablet,delayed 81 mg PO DAILY 06/17/25 06/17/25 History release losartan 25 mg tablet 12.5 mg PO HS 06/17/25 06/17/25 History Past Med/Surg History Problem List (Updated 06/17/25 @ 13:50 by Pierce Barker DO) Right sided weakness Status post lumbar spine surgery for decompression of spinal cord Colitis Acute blood loss anemia HTN (hypertension) (Acute) Generalized anxiety disorder DMII (diabetes mellitus, type 2) DVT prophylaxis LGI bleed Anemia (Acute) Hemorrhagic colitis (Acute) Esophageal reflux Irritable bowel syndrome Bloody diarrhea (Acute) Encounter for pre-operative examination Dyslipidemia Anxiety Hypertension Medical History (Updated 06/17/25 @ 13:50 by Pierce Barker DO) Colitis GERD (gastroesophageal reflux disease) controlled Pre-diabetes Vertigo Osteoarthritis Depression Chronic back pain RLE radiculopathy Surgical History Hx of cataract surgery bilateral History of cardiac cath 2013= no stents Hx of tubal ligation History of back surgery multiple; most recent L5-S1 decompression: 10/05/18: Grade view 1, MAC#3, ETT 7.5 at [facility] H/O: hysterectomy total Family History Mother Family history of diabetes mellitus Son Family history of diabetes mellitus Other Heart disease Social History Smoking Status: Never smoker Second Hand Exposure: No; Do You Dip or Chew Tobacco: No; Hx Alcohol Use: No Hx Substance Use: No Preferred Language: Persian Communication Ability: Effective 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 No obvious deformities Ext: No Edema cyanosis Skin: Warm, Dry Neuro: AOx3 No cranial nerve deficits. Muscle strength 4/5 in RLE and RUE. sensation to light touch intact. Psych: Normal Mood Results & Data Results & Data Vital Signs (Past 12 Hours) Vital Signs Temp Pulse Pulse Resp BP BP Pulse Ox 06/17/25 13:04 76 06/17/25 12:52 64 16 186/78 H 98 06/17/25 12:45 78 14 173/121 H 98 06/17/25 12:25 36.6 C 77 20 176/78 H 98 06/17/25 12:24 O2 Del Method 06/17/25 13:04 06/17/25 12:52 06/17/25 12:45 06/17/25 12:25 Room Air 06/17/25 12:24 Room Air Laboratory Results Abnormal lab results 06/17/25 06/17/25 Range/Units 12:43 12:44 Hct 36.1 L (37.0-47.0) % Sodium 133 L (136-145) mmol/L BUN/Creatinine Ratio 22.7 H (10-20) Glucose 116 H (70-99(Fasting)) mg/dl POC Glucose 129 H (70-99) mg/dl Calcium 8.3 L (8.6-10.3) mg/dl Total Bilirubin 1.1 H (0.2-1.0) mg/dl Total Protein 5.5 L (6.0-8.3) gm/dl Albumin 3.2 L (3.4-5.0) gm/dl Globulin 2.3 L (2.5-4.0) gm/dl Diagnostic Findings Head CT 06/17/25 12:22 CT SCAN OF THE BRAIN WITHOUT IV CONTRAST CLINICAL HISTORY: Neurological deficit. Stroke like symptoms. COMPARISON STUDY: CT of the brain dated 05/20/2025 TECHNIQUE: Unenhanced axial CT scan of the brain is performed from the vertex to the skull base. Images are reviewed in the axial, sagittal, coronal planes. A dose lowering technique was utilized adhering to the principles of ALARA. CT DOSE: 547.75 mGy.cm FINDINGS: Brain parenchyma: There is age-related involutional change noting mild to moderate subcortical and periventricular microangiopathic disease. There is no hemorrhage, mass effect, or evidence of acute territorial ischemia by CT criteria. Daniel-white matter differentiation is preserved. No extra-axial fluid collection is seen. Ventricles, sulci, cisterns: Prominent secondary to involutional change. Intracranial vasculature: There is atherosclerotic calcification of the cavernous carotid arteries. Calvarium: Unremarkable. Sinuses and mastoids: The visualized paranasal sinuses are clear. The mastoid ai r cells are well pneumatized. Orbits: The bony orbits are grossly intact. There are bilateral ocular lens implants. IMPRESSION: There is no hemorrhage, mass effect, or evidence of acute territor ial ischemia by CT criteria. ACT 112: Negative or not required by law. Electronically signed by: John Odonnell M.D. 06/17/2025 12:45 PM Head CTA 06/17/25 12:22 CT ANGIOGRAM OF THE BRAIN CLINICAL HISTORY: Neurological deficit. Stroke like symptoms. Right-sided weakness. COMPARISON STUDY: Unenhanced CT of the brain performed concurrently on 06/17/2025. CT angiogram of the brain dated 05/20/2025. TECHNIQUE: Following the IV administration of 115 cc of Optiray 320, CT angiogram of the brain was performed from the skull base to the vertex. Images are reviewed in the axial, sagittal, and coronal planes. 3-D MIPS images are created and assessed. IV contrast was administered without complication. A dose lowering technique was utilized adhering to the principles of ALARA. FINDINGS: Brain parenchyma: There is no evidence of hemorrhage or mass effect noting angiographic phase technique. There is age-related involutional change noting mild to moderate subcortical and periventricular microangiopathic disease. There is no evidence of enhancing mass lesion on the angiogram phase images. No extra- axial fluid collection is seen. Daniel-white matter differentiation is preserved. Ventricles, sulci, and cisterns: Prominent secondary to involutional change. CT angiogram of the brain: The internal carotid arteries at the skull base are patent, as are the anterior and middle cerebral arteries. The vertebrobasilar system and posterior cerebral arteries are patent. The left vertebral artery is dominant. The right vertebral artery largely terminates as the PICA. There is origin of the right posterior cerebral artery. A tiny posterior communicating artery is noted on the left. There is no aneurysm, high-grade stenosis, or focal vessel cutoff identified throughout the intracranial circulation. Dural sinuses: Clear as visualized. Orbits: The bony orbits are intact. The orbital contents are normal as visualized noting bilateral ocular lens implants. Sinuses and mastoids: There is trace mucosal thickening within the maxillary antra. The paranasal sinuses are otherwise clear. The mastoid air cells are well pneumatized. Calvarium: Unremarkable. IMPRESSION: 1. There is no evidence of hemorrhage or mass effect noting angiographic phase technique. 2. Unremarkable CT angiogram of the brain. ACT 112: Negative or not required by law. Electronically signed by: John Odonnell M.D. 06/17/2025 12:57 PM Neck CTA 06/17/25 12:22 CT angio neck with con CLINICAL HISTORY: 75 years-old Female with neuro deficit, acute stroke suspected. COMPARISON STUDY: 05/20/2025 TECHNIQUE: Following the IV administration of 115 of Optiray, CT angiogram of the neck was performed from the aortic arch to the skull base. Images are reviewed in the axial, sagittal, and coronal planes. 3-D MIPS images are created and assessed. IV contrast was administered without complication. All measureme nts were calculated based on NASCET criteria. A dose lowering technique was utilized adhering to the principles of ALARA. CT DOSE: 410.23 mGy.cm FINDINGS: Imaged portions of the lung apices are unremarkable. There is no cervical lymphadenopathy. There are no cervical spine fractures. The left vertebral artery is dominant and patent. The right vertebral artery ends in PICA. The bilateral common carotid and cervical internal carotid arteries are patent. There is no aneurysm or dissection within the neck. IMPRESSION:Unremarkable CTA of the neck. ACT 112: Negative or not required by law. The above report was generated using voice recognition software. It may contain grammatical, syntax or spelling errors. Electronically signed by: Santo Valdez M.D. 06/17/2025 12:57 PM Code Status & VTE Plan Code Status full VTE Prophylaxis Plan VTE Prophylaxis will be ordered: Yes
[2025-06-17] MEDS ORDERED: PHARMACIST DISCHARGE MED REC CONSULT PRN (14:50)
--- NOTE | 2025-06-17 17:49 | Magnetic Resonance Report ---
Clinical History: Possible stroke Technique: Multiple T1 and T2-weighted magnetic resonance images were obtained of the brain without gadolinium contrast Findings: There is a 5 mm focus of restricted diffusion in the lateral left thalamus. This is consistent with an acute infarct There is cerebral atrophy, within expected limits for the patient's age. There are focal and confluent areas of increased T2 signal intensity within the periventricular white matter of the cerebral hemispheres bilaterally. This is most likely due to chronic small vessel ischemic disease. No definite mass lesion is seen on this noncontrast study. There is no intracranial hemorrhage or other fluid collection. No midline shift or other form of herniation is seen. There is no hydrocephalus. Meckel's caves are prominent bilaterally, measuring approximately 2.2 x 1.1 cm in the right and 1.9 x 1.1 cm in the left. There is a partially empty sella appearance with the pituitary gland being diminutive and flattened inferiorly. Normal flow-voids are seen within the arteries of the [id number]. The orbits and paranasal sinuses appear normal. The mastoid air cells appear clear. Impression: 1. Small acute infarct of the left thalamus 2. Cerebral atrophy and chronic small vessel ischemic disease 3. Prominent Meckel's caves and empty sella appearance, raising concern for idiopathic intracranial hypertension/pseudotumor cerebri ACT 112: Positive. There are findings on this exam that require communication between the performing entity and the patient following Patient Test Result Information Act ([place] ACT 112) guidelines. Electronically signed by Isidro Cloud 06-17-2025 5:49 PM
[2025-06-17] MEDS: ATORVASTATIN 40 MG TAB PO SCH (17:56)
[2025-06-17] MEDS: ACETAMINOPHEN 325 MG TAB PO PRN (20:11)
[2025-06-17] MEDS: HEPARIN SOD 5,000 UNIT/0.5 ML VIAL SQ SCH (20:44)
[2025-06-17] MEDS: LOSARTAN POTASSIUM 25 MG TAB PO SCH (20:44)
[2025-06-17] MEDS: LORazepam 0.5 MG TAB PO PRN (22:02)
[2025-06-18 06:19] LABS: Anion Gap 5.0 (3-11); Blood Urea Nitrogen 15.0 mg/dl (6-23); Calcium 9.2 mg/dl (8.6-10.3); Carbon Dioxide 27.0 mmol/L (21-32); Chloride 106.0 mmol/L (98-107); Cholesterol 215.0 mg/dl (0-200); Creatinine Clr Calc Pharmacy 57.3 ml/min; Glucose 101.0 mg/dl (70-99(Fasting)); HDL Cholesterol 44.0 mg/dl; Potassium 3.9 mmol/L (3.5-5.1); Sodium 138.0 mmol/L (136-145); Triglycerides 138.0 mg/dl (0-150)
[2025-06-18 07:50] LABS: Hemoglobin A1C 6.2 % (4.5-5.6)
[2025-06-18 07:58] LABS: Hematocrit (blood only) 41.2 % (37.0-47.0); Hemoglobin 13.4 g/dl (12.0-16.0); Mean Corpuscular Hemoglobin 27.4 pg (25.0-34.0); Mean Corpuscular Volume 84.3 fL (80.0-100.0); RDW Standard Deviation 39.9 fL (36.4-46.3); Red Blood Count 4.89 M/uL (4.20-5.40); White Blood Count 6.15 K/ul (4.8-10.8)
[2025-06-18 07:59] LABS: Immature Granulocytes # (auto) 0.03 K/uL (0.01-0.20); Immature Granulocytes % (auto) 0.5 %
[2025-06-18] MEDS: ASPIRIN 81 MG ECTAB PO SCH (08:40)
[2025-06-18] MEDS: SERTRALINE HCL 50 MG TABLET PO SCH (08:40)
[2025-06-18] MEDS: LOSARTAN POTASSIUM 25 MG TAB PO SCH (08:40)
--- NOTE | 2025-06-18 08:43 | XCELERA ---
[id number] [id number]
[2025-06-18] MEDS: ONDANSETRON INJ 2 MG/ML 2 ML VIAL IV PRN (12:09)
--- NOTE | 2025-06-18 17:31 | Hospitalist Progress Note ---
Date of Service June 18, 2025 Assessment & Plan (1) Right sided weakness: Plan 75F with PMH HTN, pre DM, ischemic colitis, HLD, anxiety who presents with RUE and RLE weakness. #R sided Weakness Acute CVA, left thalamus -Affecting RLE and RUE. -Symptoms started yesterday -CTH, CTA without acute pathology. No LVO -Symptoms concerning for acute ischemic stroke -Out of TNK window. -EKG NSR 06/18 Brain MRI: 1. Small acute infarct of the left thalamus 2. Cerebral atrophy and chronic small vessel ischemic disease 3. Prominent Meckel's caves and empty sella appearance, raising concern for idiopathic intracranial hypertension/pseudotumor cerebri add Plavix to aspirin Continue increased dose of atorvastatin Monitor blood pressure closely Will need Zio patch as an outpatient Awaiting neurology evaluation and recommendations #HTN continue losartan #Pre DM - A1c 6.2 #Anxiety Continue home zoloft and prn ativan #HLD DC simvastatin, switch to lipitor 80 Disposition Anticipate discharge home tomorrow after neurology evaluation Admission and Anticipated Discharge Date Admission Date: June 17, 2025 Subjective seen sitting up in bed, comfortable, not in distress Reports persistent paresthesias on right upper and right lower extremities With minimal weakness Able to ambulate with no problems No other neurologic symptoms Denies chest pain, shortness of breath, palpitations No other new symptoms Review of Systems Review of Systems: all noted and negative except for above Physical Exam Physical Exam: General- oriented x 3, not in distress, speaks in sentences with no effort or accessory muscle use Eyes- anicteric Neck- no JVD Lungs- clear breath sounds bilaterally, no rales/wheezes Heart- normal rate, regular rhythm; no murmurs Abdomen- normal bowel sounds, nondistended, soft, nontender Extremities- no pretibial edema, no calf tenderness Neuro- alert, oriented x 3; no gross focal neurologic deficits Skin- warm & dry Results & Data Results & Data Vital Signs (Past 12 Hours) Vital Signs Temp Pulse Pulse Resp BP Pulse Ox O2 Del Method 06/18/25 15:26 36.7 C 75 18 154/65 H 95 Room Air 06/18/25 11:05 36.3 C L 63 18 160/75 H 94 Room Air 06/18/25 08:00 52 L 06/18/25 07:20 36.5 C 72 19 150/77 H 95 Room Air
[2025-06-18] MEDS: CLOPIDOGREL BISULFATE 75 MG TAB PO ONE (18:46)
--- NOTE | 2025-06-18 20:26 | Neurology Consultation ---
Date of Consultation June 18, 2025 Assessment & Plan (1) Acute CVA (cerebrovascular accident): Suspected to be related to small vessel disease. Plan Continue with aspirin 81 mg. Atorvastatin 80 mg. Strict risk factor modifications risk factor modifications Strict blood glucose control. Strict control of hypertension. Recommend a Zio patch upon discharge and follow-up with neurology within 6 weeks. Continue PT OT. Diet and lifestyle modifications. This was discussed with the patient in detail with, with stressing on medication compliance and blood pressure control Telehealth Consultation Telehealth Information Telehealth Information: I performed this visit using a real-time telehealth connection between my location and the patients location ([facility]). After connecting through interactive tele-video, patient was identified by name and date of and/or wristband check.Patient (or authorized healthcare sales representative door to door) was informed that this was a telemedicine visit and it was being conducted confidentially over secure lines. My office door was closed and no one else was present in the room with me.Patient (or authorized healthcare sales representative door to door) provided consent to proceed with the visit, expressed an understanding of privacy and security of the telemedicine visit, and gave permission to have a hospital sales representative door to door in the room in order to assist with the visit and to conduct portions of the visit, as needed. I informed the patient (or authorized healthcare sales representative door to door) that I reviewed their record and presented the opportunity for them to ask any questions regarding the visit today. The patient agreed to participate. History of Present Illness Reason for Consultation: Acute ischemic stroke Requesting Physician: Chun Galan MD Attending Physician: Chun Galan MD History of Present Illness Suzanne is a 75-year-old female patient with PMH irritable bowel syndrome, type II DM, HTN, HLP, generalized anxiety disorder who has presents to the hospital yesterday with right-sided numbness. The patient reports that on 06/16/2025 evening she started feeling numbness at the bottom of her right foot, throughout the evening it went up to her thigh, she went to bed and when she woke up her right arm was also numb. She denies any associated facial numbness, denies any visual changes slurred speech difficulty with swallowing. As a result of the numbness she thinks that her right leg was stuck when somehow weaker, but there was no paralysis. She did not have any balance issues. She admits that she has not been taking her blood pressure medications for the last 1 month or 2. She denies any other recent illnesses. Allergies Allergy/AdvReac Type Severity Reaction Status Date / Time ciprofloxacin [From Cipro] Allergy Intermediate chest Verified 06/17/25 13:52 pain, nausea, vomiting, rash Iodinated Contrast Media Allergy Intermediate nausea, Verified 06/17/25 13:52 vomiting, diarrhea latex Allergy Intermediate rash, Verified 06/17/25 13:52 blisters with "latex bandaids" Quinolones Allergy Intermediate chest Verified 06/17/25 13:52 pain, nausea, vomiting, rash with cipro/ + tachycardia nickel Allergy Mild redness, Verified 06/17/25 13:52 itching Sulfa (Sulfonamide Allergy Mild rash Verified 06/17/25 13:52 Antibiotics) metals Allergy Severe lip Uncoded 06/17/25 13:52 tingling with "metal in lipstick" per skin testing Home Medications Medication Instructions Recorded Confirmed Type dicyclomine 20 mg tablet 20 mg PO DAILY PRN Abdominal 06/16/09 06/17/25 History Discomfort ##0 lorazepam 0.5 mg tablet (Ativan) 0.25 mg PO HS PRN Anxiety ##0 06/16/09 06/17/25 History losartan 25 mg tablet 25 mg PO QAM 06/24/18 06/17/25 History meclizine 12.5 mg tablet 12.5 mg PO BID PRN Vertigo 06/24/18 06/17/25 History pantoprazole 40 mg tablet,delayed 40 mg PO DAILYBB 06/24/18 06/17/25 History release (Protonix) sertraline 100 mg tablet (Zoloft) 50 mg PO QAM 06/24/18 06/17/25 History simvastatin 20 mg tablet 20 mg PO HS 06/24/18 06/17/25 History aspirin 81 mg tablet,delayed 81 mg PO DAILY 06/17/25 06/17/25 History release losartan 25 mg tablet 12.5 mg PO HS 06/17/25 06/17/25 History Patient History Medical History (Updated 06/17/25 @ 18:23 by Jj Mccarty DO) Colitis GERD (gastroesophageal reflux disease) controlled Pre-diabetes Vertigo Osteoarthritis Depression Chronic back pain RLE radiculopathy Surgical History Hx of cataract surgery bilateral History of cardiac cath 2014= no stents Hx of tubal ligation History of back surgery multiple; most recent L5-S1 decompression: 10/05/18: Grade view 1, MAC#3, ETT 7.5 at [facility] H/O: hysterectomy total Family History Mother Family history of diabetes mellitus Son Family history of diabetes mellitus Other Heart disease Social History Smoking Status: Never smoker Second Hand Exposure: No; Do You Dip or Chew Tobacco: No; Hx Alcohol Use: No Hx Substance Use: No Preferred Language: Bulgarian Communication Ability: Effective Digital Sales Assistant Required: No Beliefs That Will Affect Care: None Current Living Situation: Spouse Current Living Situation Comment: SPOUSE Feels Safe at Home: Yes Safety Concerns: Feels Safe At This Time Assistive Devices: Cane Review of Systems Constitutional: Patient denies weight loss, fever, chills, and night sweats Eyes: Patient denies change in vision, tearing, pain, and redness ENT: Patient denies pain, bleeding, rhinorrhea, and dysphagia Cardiovascular: Patient denies chest pain, palpitation, dyspnea at rest, and dyspnea with exertion Respiratory: Patient denies shortness of breath, cough, wheezing, and productive cough GI: Patient denies reflux, pain, constipation, and diarrhea Skin: Patient denies rash, dryness, and itching Allergies/Immune System: Patient denies rhinorrhea, seasonal allergies, reaction to current MEDS, and joint swelling Endocrine: Patient denies weight loss, weight gain, temperature intolerance, and excessive thirst Neurological: All negative unless mentioned in the HPI Physical Exam General Constitutional: Appearance normally developed Head and face: normocephalic and atraumatic Eyes: no ptosis, no anisocoria, and no dysconjugate gaze Respiratory: normal effort Cardiovascular: regular rhythm and regular rate Abdomen: non distended Skin: no rashes, lesions, or ulcers noted Psychiatric: normal judgement and insight, normal mood, and normal affect NEUROLOGIC EXAMINATION: Mental Status:alert, oriented to time, place, person, normal recent memory, normal remote memory, normal attention span, normal concentration, normal language and normal fund of knowledge Cranial Nerves: CN 2 - no visual defect on confrontation and pupils round, equal, reactive to light CN 3, 4, 6 - extra-ocular movements intact and no nystagmus CN 5 - facial sensation intact CN 7 - no facial asymmetry CN 8 - intact hearing CN 9, 10 - palate symmetric, normal gag CN 11 - good shoulder shrug CN 12 - tongue midline MOTOR: Strength was at least antigravity throughout, Pronator drift was absent and There were no abnormal movements SENSATION: Decreased to light touch over the right upper and lower extremity GAIT: stable, no ataxia and can perform tandem walking COORDINATION: no ataxia with finger to nose testing and heel to tan testing REFLEXES: cannot assess over telemedicine NIH Stroke Scale: 1a. Level of Consciousness: alert = 0 1b. LOC Questions: (month, age): both correct = 0 1c. LOC Commands (open and close eyes, make fist and let go using non-paretic hand): obeys both correctly = 0 2. Best Gaze (eyes open and patient follows examiner's finger or face): normal = 0 3. Visual (visual threat or finger counting in each quadrant): no loss = 0 4. Facial Palsy (show teeth, raise eye brows and squeeze eyes shut, or grimace symmetry in a comatose patient): normal = 0 5a. Motor Arm (extend arm (palms down) to 90 degrees and score drift/movement (10 seconds) - Left: no drift = 0 5b. Motor Arm: (extend arm (palms down) to 90 degrees and score drift/movement (10 seconds) - Right: no drift = 0 6a. Motor Leg (elevate leg 30 degrees and score drift/ movement (5 seconds) - Left: no drift = 0 6b. Motor Leg (elevate leg 30 degrees and score drift/ movement (5 seconds) - Right: no drift = 0 7. Limb Ataxia (finger to nose, heel down tan): absent = 0 8. Sensory (pin prick to face, arm, trunk and leg, compare side to side): Partial sensory loss = 1 9. Best Language: no aphasia = 0 10. Dysarthria (evaluate speech clarity by patient repeating listed words): normal articulation = 0 11. Extinction and Inattention: no neglect = 0 Total: 1 Results & Data Vital Signs (Past 12 Hours) Vital Signs Temp Pulse Resp BP Pulse Ox O2 Del Method 06/18/25 19:22 36.5 C 57 L 18 153/64 H 94 Room Air 06/18/25 15:26 36.7 C 75 18 154/65 H 95 Room Air 06/18/25 11:05 36.3 C L 63 18 160/75 H 94 Room Air Laboratory Results Laboratory Results - last 24 hr 06/18/25 06/18/25 06/18/25 05:24 05:24 05:24 WBC Cancelled Cancelled RBC Cancelled Cancelled Hgb Cancelled Hct MCV MCH MCHC RDW Std Deviation RDW Coeff of Kandis Plt Count MPV Immature Gran % (Auto) Neut % (Auto) Lymph % (Auto) [place] % (Auto) Eos % (Auto) Baso % (Auto) Neut # (Auto) Lymph # (Auto) [place] # (Auto) Eos # (Auto) Baso # (Auto) Immature Gran # (Auto) Absolute Nucleated RBC Nucleated RBC % (auto) Neutrophils % (Manual) Band Neutrophils % Lymphocytes % (Manual) Prolymphocyte % Reactive Lymphs % (Man) Monocytes % (Manual) Eosinophils % (Manual) Basophils % (Manual) Metamyelocytes % (Man) Myelocytes % (Man) Promyelocytes % (Man) Blast Cells % (Manual) Plasma Cell % (Manual) Other Cells % Nucleated RBC % Neutrophils # (Manual) Band Neutrophils # Total Absolute Neuts Lymphocytes # (Manual) Prolymphocyte # Reactive Lymphs # Total Abs Lymphocytes Monocytes # (Manual) Eosinophils # (Manual) Basophils # (Manual) Metamyelocytes # (Man) Myelocytes # (Manual) Promyelocytes # (Man) Blast Cells # (Man) Plasma Cell # (Manual) Other Cells # Nucleated RBCs # (Man) Hypersegmented Neuts Hyposegmented Neuts Hypogranular Neuts Large Granular Lymphs # Lrg Granular Lymphs Hairy Cells Smudge Cells Toxic Granulation Toxic Vacuolation Dohle Bodies Dre Rods Platelet Estimate Hypogranular Platelets Giant Platelets Platelet Satelliting RBC Morphology Polychromasia Hypochromasia Poikilocytosis Basophilic Stippling Anisocytosis Microcytosis Macrocytosis Spherocytes Pappenheimer Bodies Sickle Cells Target Cells Tear Drop Cells Ovalocytes Stomatocytes [place] Bodies Echinocytes Acanthocytes (Spur) Rouleaux RBC Agglutinates Schistocytes Sezary Cell Sodium Potassium Chloride Carbon Dioxide Anion Gap BUN Creatinine Est Cr Clr Drug Dosing eGFR BUN/Creatinine Ratio Glucose Estimat Average Glucose Hemoglobin A1c Calcium Triglycerides Cholesterol LDL Cholesterol, Calc VLDL Cholesterol, Calc HDL Cholesterol Cholesterol/HDL Ratio Blood Parasites ID 06/18/25 06/18/25 06/18/25 05:24 05:24 05:24 WBC RBC Hgb Cancelled Hct Cancelled Cancelled MCV Cancelled Cancelled MCH Cancelled MCHC RDW Std Deviation RDW Coeff of [place]and[place] Plt Count MPV Immature Gran % (Auto) Neut % (Auto) Lymph % (Auto) [place] % (Auto) Eos % (Auto) Baso % (Auto) Neut # (Auto) Lymph # (Auto) [place] # (Auto) Eos # (Auto) Baso # (Auto) Immature Gran # (Auto) Absolute Nucleated RBC Nucleated RBC % (auto) Neutrophils % (Manual) Band Neutrophils % Lymphocytes % (Manual) Prolymphocyte % Reactive Lymphs % (Man) Monocytes % (Manual) Eosinophils % (Manual) Basophils % (Manual) Metamyelocytes % (Man) Myelocytes % (Man) Promyelocytes % (Man) Blast Cells % (Manual) Plasma Cell % (Manual) Other Cells % Nucleated RBC % Neutrophils # (Manual) Band Neutrophils # Total Absolute Neuts Lymphocytes # (Manual) Prolymphocyte # Reactive Lymphs # Total Abs Lymphocytes Monocytes # (Manual) Eosinophils # (Manual) Basophils # (Manual) Metamyelocytes # (Man) Myelocytes # (Manual) Promyelocytes # (Man) Blast Cells # (Man) Plasma Cell # (Manual) Other Cells # Nucleated RBCs # (Man) Hypersegmented Neuts Hyposegmented Neuts Hypogranular Neuts Large Granular Lymphs # Lrg Granular Lymphs Hairy Cells Smudge Cells Toxic Granulation Toxic Vacuolation Dohle Bodies Dre Rods Platelet Estimate Hypogranular Platelets Giant Platelets Platelet Satelliting RBC Morphology Polychromasia Hypochromasia Poikilocytosis Basophilic Stippling Anisocytosis Microcytosis Macrocytosis Spherocytes Pappenheimer Bodies Sickle Cells Target Cells Tear Drop Cells Ovalocytes Stomatocytes [place] Bodies Echinocytes Acanthocytes (Spur) Rouleaux RBC Agglutinates Schistocytes Sezary Cell Sodium Potassium Chloride Carbon Dioxide Anion Gap BUN Creatinine Est Cr Clr Drug Dosing eGFR BUN/Creatinine Ratio Glucose Estimat Average Glucose Hemoglobin A1c Calcium Triglycerides Cholesterol LDL Cholesterol, Calc VLDL Cholesterol, Calc HDL Cholesterol Cholesterol/HDL Ratio Blood Parasites ID 06/18/25 06/18/25 06/18/25 05:24 05:24 05:24 WBC RBC Hgb Hct MCV MCH Cancelled MCHC Cancelled Cancelled RDW Std Deviation Cancelled Cancelled RDW Coeff of Kandis Cancelled Plt Count MPV Immature Gran % (Auto) Neut % (Auto) Lymph % (Auto) [place] % (Auto) Eos % (Auto) Baso % (Auto) Neut # (Auto) Lymph # (Auto) [place] # (Auto) Eos # (Auto) Baso # (Auto) Immature Gran # (Auto) Absolute Nucleated RBC Nucleated RBC % (auto) Neutrophils % (Manual) Band Neutrophils % Lymphocytes % (Manual) Prolymphocyte % Reactive Lymphs % (Man) Monocytes % (Manual) Eosinophils % (Manual) Basophils % (Manual) Metamyelocytes % (Man) Myelocytes % (Man) Promyelocytes % (Man) Blast Cells % (Manual) Plasma Cell % (Manual) Other Cells % Nucleated RBC % Neutrophils # (Manual) Band Neutrophils # Total Absolute Neuts Lymphocytes # (Manual) Prolymphocyte # Reactive Lymphs # Total Abs Lymphocytes Monocytes # (Manual) Eosinophils # (Manual) Basophils # (Manual) Metamyelocytes # (Man) Myelocytes # (Manual) Promyelocytes # (Man) Blast Cells # (Man) Plasma Cell # (Manual) Other Cells # Nucleated RBCs # (Man) Hypersegmented Neuts Hyposegmented Neuts Hypogranular Neuts Large Granular Lymphs # Lrg Granular Lymphs Hairy Cells Smudge Cells Toxic Granulation Toxic Vacuolation Dohle Bodies Dre Rods Platelet Estimate Hypogranular Platelets Giant Platelets Platelet Satelliting RBC Morphology Polychromasia Hypochromasia Poikilocytosis Basophilic Stippling Anisocytosis Microcytosis Macrocytosis Spherocytes Pappenheimer Bodies Sickle Cells Target Cells Tear Drop Cells Ovalocytes Stomatocytes [place] Bodies Echinocytes Acanthocytes (Spur) Rouleaux RBC Agglutinates Schistocytes Sezary Cell Sodium Potassium Chloride Carbon Dioxide Anion Gap BUN Creatinine Est Cr Clr Drug Dosing eGFR BUN/Creatinine Ratio Glucose Estimat Average Glucose Hemoglobin A1c Calcium Triglycerides Cholesterol LDL Cholesterol, Calc VLDL Cholesterol, Calc HDL Cholesterol Cholesterol/HDL Ratio Blood Parasites ID 06/18/25 06/18/25 06/18/25 05:24 05:24 05:24 WBC RBC Hgb Hct MCV MCH MCHC RDW Std Deviation RDW Coeff of Kandis Cancelled Plt Count Cancelled Cancelled MPV Cancelled Cancelled Immature Gran % (Auto) Cancelled Neut % (Auto) Lymph % (Auto) [place] % (Auto) Eos % (Auto) Baso % (Auto) Neut # (Auto) Lymph # (Auto) [place] # (Auto) Eos # (Auto) Baso # (Auto) Immature Gran # (Auto) Absolute Nucleated RBC Nucleated RBC % (auto) Neutrophils % (Manual) Band Neutrophils % Lymphocytes % (Manual) Prolymphocyte % Reactive Lymphs % (Man) Monocytes % (Manual) Eosinophils % (Manual) Basophils % (Manual) Metamyelocytes % (Man) Myelocytes % (Man) Promyelocytes % (Man) Blast Cells % (Manual) Plasma Cell % (Manual) Other Cells % Nucleated RBC % Neutrophils # (Manual) Band Neutrophils # Total Absolute Neuts Lymphocytes # (Manual) Prolymphocyte # Reactive Lymphs # Total Abs Lymphocytes Monocytes # (Manual) Eosinophils # (Manual) Basophils # (Manual) Metamyelocytes # (Man) Myelocytes # (Manual) Promyelocytes # (Man) Blast Cells # (Man) Plasma Cell # (Manual) Other Cells # Nucleated RBCs # (Man) Hypersegmented Neuts Hyposegmented Neuts Hypogranular Neuts Large Granular Lymphs # Lrg Granular Lymphs Hairy Cells Smudge Cells Toxic Granulation Toxic Vacuolation Dohle Bodies Dre Rods Platelet Estimate Hypogranular Platelets Giant Platelets Platelet Satelliting RBC Morphology Polychromasia Hypochromasia Poikilocytosis Basophilic Stippling Anisocytosis Microcytosis Macrocytosis Spherocytes Pappenheimer Bodies Sickle Cells Target Cells Tear Drop Cells Ovalocytes Stomatocytes [place] Bodies Echinocytes Acanthocytes (Spur) Rouleaux RBC Agglutinates Schistocytes Sezary Cell Sodium Potassium Chloride Carbon Dioxide Anion Gap BUN Creatinine Est Cr Clr Drug Dosing eGFR BUN/Creatinine Ratio Glucose Estimat Average Glucose Hemoglobin A1c Calcium Triglycerides Cholesterol LDL Cholesterol, Calc VLDL Cholesterol, Calc HDL Cholesterol Cholesterol/HDL Ratio Blood Parasites ID 06/18/25 06/18/25 06/18/25 05:24 05:24 05:24 WBC RBC Hgb Hct MCV MCH MCHC RDW Std Deviation RDW Coeff of Kandis Plt Count MPV Immature Gran % (Auto) Cancelled Neut % (Auto) Cancelled Cancelled Lymph % (Auto) Cancelled Cancelled [place] % (Auto) Cancelled Eos % (Auto) Baso % (Auto) Neut # (Auto) Lymph # (Auto) [place] # (Auto) Eos # (Auto) Baso # (Auto) Immature Gran # (Auto) Absolute Nucleated RBC Nucleated RBC % (auto) Neutrophils % (Manual) Band Neutrophils % Lymphocytes % (Manual) Prolymphocyte % Reactive Lymphs % (Man) Monocytes % (Manual) Eosinophils % (Manual) Basophils % (Manual) Metamyelocytes % (Man) Myelocytes % (Man) Promyelocytes % (Man) Blast Cells % (Manual) Plasma Cell % (Manual) Other Cells % Nucleated RBC % Neutrophils # (Manual) Band Neutrophils # Total Absolute Neuts Lymphocytes # (Manual) Prolymphocyte # Reactive Lymphs # Total Abs Lymphocytes Monocytes # (Manual) Eosinophils # (Manual) Basophils # (Manual) Metamyelocytes # (Man) Myelocytes # (Manual) Promyelocytes # (Man) Blast Cells # (Man) Plasma Cell # (Manual) Other Cells # Nucleated RBCs # (Man) Hypersegmented Neuts Hyposegmented Neuts Hypogranular Neuts Large Granular Lymphs # Lrg Granular Lymphs Hairy Cells Smudge Cells Toxic Granulation Toxic Vacuolation Dohle Bodies Dre Rods Platelet Estimate Hypogranular Platelets Giant Platelets Platelet Satelliting RBC Morphology Polychromasia Hypochromasia Poikilocytosis Basophilic Stippling Anisocytosis Microcytosis Macrocytosis Spherocytes Pappenheimer Bodies Sickle Cells Target Cells Tear Drop Cells Ovalocytes Stomatocytes [place] Bodies Echinocytes Acanthocytes (Spur) Rouleaux RBC Agglutinates Schistocytes Sezary Cell Sodium Potassium Chloride Carbon Dioxide Anion Gap BUN Creatinine Est Cr Clr Drug Dosing eGFR BUN/Creatinine Ratio Glucose Estimat Average Glucose Hemoglobin A1c Calcium Triglycerides Cholesterol LDL Cholesterol, Calc VLDL Cholesterol, Calc HDL Cholesterol Cholesterol/HDL Ratio Blood Parasites ID 06/18/25 06/18/25 06/18/25 05:24 05:24 05:24 WBC RBC Hgb Hct MCV MCH MCHC RDW Std Deviation RDW Coeff of Kandis Plt Count MPV Immature Gran % (Auto) Neut % (Auto) Lymph % (Auto) [place] % (Auto) Cancelled Eos % (Auto) Cancelled Cancelled Baso % (Auto) Cancelled Cancelled Neut # (Auto) Cancelled Lymph # (Auto) [place] # (Auto) Eos # (Auto) Baso # (Auto) Immature Gran # (Auto) Absolute Nucleated RBC Nucleated RBC % (auto) Neutrophils % (Manual) Band Neutrophils % Lymphocytes % (Manual) Prolymphocyte % Reactive Lymphs % (Man) Monocytes % (Manual) Eosinophils % (Manual) Basophils % (Manual) Metamyelocytes % (Man) Myelocytes % (Man) Promyelocytes % (Man) Blast Cells % (Manual) Plasma Cell % (Manual) Other Cells % Nucleated RBC % Neutrophils # (Manual) Band Neutrophils # Total Absolute Neuts Lymphocytes # (Manual) Prolymphocyte # Reactive Lymphs # Total Abs Lymphocytes Monocytes # (Manual) Eosinophils # (Manual) Basophils # (Manual) Metamyelocytes # (Man) Myelocytes # (Manual) Promyelocytes # (Man) Blast Cells # (Man) Plasma Cell # (Manual) Other Cells # Nucleated RBCs # (Man) Hypersegmented Neuts Hyposegmented Neuts Hypogranular Neuts Large Granular Lymphs # Lrg Granular Lymphs Hairy Cells Smudge Cells Toxic Granulation Toxic Vacuolation Dohle Bodies Dre Rods Platelet Estimate Hypogranular Platelets Giant Platelets Platelet Satelliting RBC Morphology Polychromasia Hypochromasia Poikilocytosis Basophilic Stippling Anisocytosis Microcytosis Macrocytosis Spherocytes Pappenheimer Bodies Sickle Cells Target Cells Tear Drop Cells Ovalocytes Stomatocytes [place] Bodies Echinocytes Acanthocytes (Spur) Rouleaux RBC Agglutinates Schistocytes Sezary Cell Sodium Potassium Chloride Carbon Dioxide Anion Gap BUN Creatinine Est Cr Clr Drug Dosing eGFR BUN/Creatinine Ratio Glucose Estimat Average Glucose Hemoglobin A1c Calcium Triglycerides Cholesterol LDL Cholesterol, Calc VLDL Cholesterol, Calc HDL Cholesterol Cholesterol/HDL Ratio Blood Parasites ID 06/18/25 06/18/25 06/18/25 05:24 05:24 05:24 WBC RBC Hgb Hct MCV MCH MCHC RDW Std Deviation RDW Coeff of Kandis Plt Count MPV Immature Gran % (Auto) Neut % (Auto) Lymph % (Auto) [place] % (Auto) Eos % (Auto) Baso % (Auto) Neut # (Auto) Cancelled Lymph # (Auto) Cancelled Cancelled [place] # (Auto) Cancelled Cancelled Eos # (Auto) Cancelled Baso # (Auto) Immature Gran # (Auto) Absolute Nucleated RBC Nucleated RBC % (auto) Neutrophils % (Manual) Band Neutrophils % Lymphocytes % (Manual) Prolymphocyte % Reactive Lymphs % (Man) Monocytes % (Manual) Eosinophils % (Manual) Basophils % (Manual) Metamyelocytes % (Man) Myelocytes % (Man) Promyelocytes % (Man) Blast Cells % (Manual) Plasma Cell % (Manual) Other Cells % Nucleated RBC % Neutrophils # (Manual) Band Neutrophils # Total Absolute Neuts Lymphocytes # (Manual) Prolymphocyte # Reactive Lymphs # Total Abs Lymphocytes Monocytes # (Manual) Eosinophils # (Manual) Basophils # (Manual) Metamyelocytes # (Man) Myelocytes # (Manual) Promyelocytes # (Man) Blast Cells # (Man) Plasma Cell # (Manual) Other Cells # Nucleated RBCs # (Man) Hypersegmented Neuts Hyposegmented Neuts Hypogranular Neuts Large Granular Lymphs # Lrg Granular Lymphs Hairy Cells Smudge Cells Toxic Granulation Toxic Vacuolation Dohle Bodies Dre Rods Platelet Estimate Hypogranular Platelets Giant Platelets Platelet Satelliting RBC Morphology Polychromasia Hypochromasia Poikilocytosis Basophilic Stippling Anisocytosis Microcytosis Macrocytosis Spherocytes Pappenheimer Bodies Sickle Cells Target Cells Tear Drop Cells Ovalocytes Stomatocytes [place] Bodies Echinocytes Acanthocytes (Spur) Rouleaux RBC Agglutinates Schistocytes Sezary Cell Sodium Potassium Chloride Carbon Dioxide Anion Gap BUN Creatinine Est Cr Clr Drug Dosing eGFR BUN/Creatinine Ratio Glucose Estimat Average Glucose Hemoglobin A1c Calcium Triglycerides Cholesterol LDL Cholesterol, Calc VLDL Cholesterol, Calc HDL Cholesterol Cholesterol/HDL Ratio Blood Parasites ID 06/18/25 06/18/25 06/18/25 05:24 05:24 05:24 WBC RBC Hgb Hct MCV MCH MCHC RDW Std Deviation RDW Coeff of Kandis Plt Count MPV Immature Gran % (Auto) Neut % (Auto) Lymph % (Auto) [place] % (Auto) Eos % (Auto) Baso % (Auto) Neut # (Auto) Lymph # (Auto) [place] # (Auto) Eos # (Auto) Cancelled Baso # (Auto) Cancelled Cancelled Immature Gran # (Auto) Cancelled Cancelled Absolute Nucleated RBC Cancelled Nucleated RBC % (auto) Neutrophils % (Manual) Band Neutrophils % Lymphocytes % (Manual) Prolymphocyte % Reactive Lymphs % (Man) Monocytes % (Manual) Eosinophils % (Manual) Basophils % (Manual) Metamyelocytes % (Man) Myelocytes % (Man) Promyelocytes % (Man) Blast Cells % (Manual) Plasma Cell % (Manual) Other Cells % Nucleated RBC % Neutrophils # (Manual) Band Neutrophils # Total Absolute Neuts Lymphocytes # (Manual) Prolymphocyte # Reactive Lymphs # Total Abs Lymphocytes Monocytes # (Manual) Eosinophils # (Manual) Basophils # (Manual) Metamyelocytes # (Man) Myelocytes # (Manual) Promyelocytes # (Man) Blast Cells # (Man) Plasma Cell # (Manual) Other Cells # Nucleated RBCs # (Man) Hypersegmented Neuts Hyposegmented Neuts Hypogranular Neuts Large Granular Lymphs # Lrg Granular Lymphs Hairy Cells Smudge Cells Toxic Granulation Toxic Vacuolation Dohle Bodies Dre Rods Platelet Estimate Hypogranular Platelets Giant Platelets Platelet Satelliting RBC Morphology Polychromasia Hypochromasia Poikilocytosis Basophilic Stippling Anisocytosis Microcytosis Macrocytosis Spherocytes Pappenheimer Bodies Sickle Cells Target Cells Tear Drop Cells Ovalocytes Stomatocytes [place] Bodies Echinocytes Acanthocytes (Spur) Rouleaux RBC Agglutinates Schistocytes Sezary Cell Sodium Potassium Chloride Carbon Dioxide Anion Gap BUN Creatinine Est Cr Clr Drug Dosing eGFR BUN/Creatinine Ratio Glucose Estimat Average Glucose Hemoglobin A1c Calcium Triglycerides Cholesterol LDL Cholesterol, Calc VLDL Cholesterol, Calc HDL Cholesterol Cholesterol/HDL Ratio Blood Parasites ID 06/18/25 06/18/25 06/18/25 05:24 05:24 05:24 WBC RBC Hgb Hct MCV MCH MCHC RDW Std Deviation RDW Coeff of [place] Plt Count MPV Immature Gran % (Auto) Neut % (Auto) Lymph % (Auto) [place] % (Auto) Eos % (Auto) Baso % (Auto) Neut # (Auto) Lymph # (Auto) [place] # (Auto) Eos # (Auto) Baso # (Auto) Immature Gran # (Auto) Absolute Nucleated RBC Cancelled Nucleated RBC % (auto) Cancelled Cancelled Neutrophils % (Manual) Cancelled Cancelled Band Neutrophils % Cancelled Lymphocytes % (Manual) Prolymphocyte % Reactive Lymphs % (Man) Monocytes % (Manual) Eosinophils % (Manual) Basophils % (Manual) Metamyelocytes % (Man) Myelocytes % (Man) Promyelocytes % (Man) Blast Cells % (Manual) Plasma Cell % (Manual) Other Cells % Nucleated RBC % Neutrophils # (Manual) Band Neutrophils # Total Absolute Neuts Lymphocytes # (Manual) Prolymphocyte # Reactive Lymphs # Total Abs Lymphocytes Monocytes # (Manual) Eosinophils # (Manual) Basophils # (Manual) Metamyelocytes # (Man) Myelocytes # (Manual) Promyelocytes # (Man) Blast Cells # (Man) Plasma Cell # (Manual) Other Cells # Nucleated RBCs # (Man) Hypersegmented Neuts Hyposegmented Neuts Hypogranular Neuts Large Granular Lymphs # Lrg Granular Lymphs Hairy Cells Smudge Cells Toxic Granulation Toxic Vacuolation Dohle Bodies Dre Rods Platelet Estimate Hypogranular Platelets Giant Platelets Platelet Satelliting RBC Morphology Polychromasia Hypochromasia Poikilocytosis Basophilic Stippling Anisocytosis Microcytosis Macrocytosis Spherocytes Pappenheimer Bodies Sickle Cells Target Cells Tear Drop Cells Ovalocytes Stomatocytes [place] Bodies Echinocytes Acanthocytes (Spur) Rouleaux RBC Agglutinates Schistocytes Sezary Cell Sodium Potassium Chloride Carbon Dioxide Anion Gap BUN Creatinine Est Cr Clr Drug Dosing eGFR BUN/Creatinine Ratio Glucose Estimat Average Glucose Hemoglobin A1c Calcium Triglycerides Cholesterol LDL Cholesterol, Calc VLDL Cholesterol, Calc HDL Cholesterol Cholesterol/HDL Ratio Blood Parasites ID 06/18/25 06/18/25 06/18/25 05:24 05:24 05:24 WBC RBC Hgb Hct MCV MCH MCHC RDW Std Deviation RDW Coeff of [place] Plt Count MPV Immature Gran % (Auto) Neut % (Auto) Lymph % (Auto) [place] % (Auto) Eos % (Auto) Baso % (Auto) Neut # (Auto) Lymph # (Auto) [place] # (Auto) Eos # (Auto) Baso # (Auto) Immature Gran # (Auto) Absolute Nucleated RBC Nucleated RBC % (auto) Neutrophils % (Manual) Band Neutrophils % Cancelled Lymphocytes % (Manual) Cancelled Cancelled Prolymphocyte % Cancelled Cancelled Reactive Lymphs % (Man) Cancelled Monocytes % (Manual) Eosinophils % (Manual) Basophils % (Manual) Metamyelocytes % (Man) Myelocytes % (Man) Promyelocytes % (Man) Blast Cells % (Manual) Plasma Cell % (Manual) Other Cells % Nucleated RBC % Neutrophils # (Manual) Band Neutrophils # Total Absolute Neuts Lymphocytes # (Manual) Prolymphocyte # Reactive Lymphs # Total Abs Lymphocytes Monocytes # (Manual) Eosinophils # (Manual) Basophils # (Manual) Metamyelocytes # (Man) Myelocytes # (Manual) Promyelocytes # (Man) Blast Cells # (Man) Plasma Cell # (Manual) Other Cells # Nucleated RBCs # (Man) Hypersegmented Neuts Hyposegmented Neuts Hypogranular Neuts Large Granular Lymphs # Lrg Granular Lymphs Hairy Cells Smudge Cells Toxic Granulation Toxic Vacuolation Dohle Bodies Dre Rods Platelet Estimate Hypogranular Platelets Giant Platelets Platelet Satelliting RBC Morphology Polychromasia Hypochromasia Poikilocytosis Basophilic Stippling Anisocytosis Microcytosis Macrocytosis Spherocytes Pappenheimer Bodies Sickle Cells Target Cells Tear Drop Cells Ovalocytes Stomatocytes [place] Bodies Echinocytes Acanthocytes (Spur) Rouleaux RBC Agglutinates Schistocytes Sezary Cell Sodium Potassium Chloride Carbon Dioxide Anion Gap BUN Creatinine Est Cr Clr Drug Dosing eGFR BUN/Creatinine Ratio Glucose Estimat Average Glucose Hemoglobin A1c Calcium Triglycerides Cholesterol LDL Cholesterol, Calc VLDL Cholesterol, Calc HDL Cholesterol Cholesterol/HDL Ratio Blood Parasites ID 06/18/25 06/18/25 06/18/25 05:24 05:24 05:24 WBC RBC Hgb Hct MCV MCH MCHC RDW Std Deviation RDW Coeff of [place] Plt Count MPV Immature Gran % (Auto) Neut % (Auto) Lymph % (Auto) [place] % (Auto) Eos % (Auto) Baso % (Auto) Neut # (Auto) Lymph # (Auto) [place] # (Auto) Eos # (Auto) Baso # (Auto) Immature Gran # (Auto) Absolute Nucleated RBC Nucleated RBC % (auto) Neutrophils % (Manual) Band Neutrophils % Lymphocytes % (Manual) Prolymphocyte % Reactive Lymphs % (Man) Cancelled Monocytes % (Manual) Cancelled Cancelled Eosinophils % (Manual) Cancelled Cancelled Basophils % (Manual) Cancelled Metamyelocytes % (Man) Myelocytes % (Man) Promyelocytes % (Man) Blast Cells % (Manual) Plasma Cell % (Manual) Other Cells % Nucleated RBC % Neutrophils # (Manual) Band Neutrophils # Total Absolute Neuts Lymphocytes # (Manual) Prolymphocyte # Reactive Lymphs # Total Abs Lymphocytes Monocytes # (Manual) Eosinophils # (Manual) Basophils # (Manual) Metamyelocytes # (Man) Myelocytes # (Manual) Promyelocytes # (Man) Blast Cells # (Man) Plasma Cell # (Manual) Other Cells # Nucleated RBCs # (Man) Hypersegmented Neuts Hyposegmented Neuts Hypogranular Neuts Large Granular Lymphs # Lrg Granular Lymphs Hairy Cells Smudge Cells Toxic Granulation Toxic Vacuolation Dohle Bodies Dre Rods Platelet Estimate Hypogranular Platelets Giant Platelets Platelet Satelliting RBC Morphology Polychromasia Hypochromasia Poikilocytosis Basophilic Stippling Anisocytosis Microcytosis Macrocytosis Spherocytes Pappenheimer Bodies Sickle Cells Target Cells Tear Drop Cells Ovalocytes Stomatocytes [place] Bodies Echinocytes Acanthocytes (Spur) Rouleaux RBC Agglutinates Schistocytes Sezary Cell Sodium Potassium Chloride Carbon Dioxide Anion Gap BUN Creatinine Est Cr Clr Drug Dosing eGFR BUN/Creatinine Ratio Glucose Estimat Average Glucose Hemoglobin A1c Calcium Triglycerides Cholesterol LDL Cholesterol, Calc VLDL Cholesterol, Calc HDL Cholesterol Cholesterol/HDL Ratio Blood Parasites ID 06/18/25 06/18/25 06/18/25 05:24 05:24 05:24 WBC RBC Hgb Hct MCV MCH MCHC RDW Std Deviation RDW Coeff of [place] Plt Count MPV Immature Gran % (Auto) Neut % (Auto) Lymph % (Auto) [place] % (Auto) Eos % (Auto) Baso % (Auto) Neut # (Auto) Lymph # (Auto) [place] # (Auto) Eos # (Auto) Baso # (Auto) Immature Gran # (Auto) Absolute Nucleated RBC Nucleated RBC % (auto) Neutrophils % (Manual) Band Neutrophils % Lymphocytes % (Manual) Prolymphocyte % Reactive Lymphs % (Man) Monocytes % (Manual) Eosinophils % (Manual) Basophils % (Manual) Cancelled Metamyelocytes % (Man) Cancelled Cancelled Myelocytes % (Man) Cancelled Cancelled Promyelocytes % (Man) Cancelled Blast Cells % (Manual) Plasma Cell % (Manual) Other Cells % Nucleated RBC % Neutrophils # (Manual) Band Neutrophils # Total Absolute Neuts Lymphocytes # (Manual) Prolymphocyte # Reactive Lymphs # Total Abs Lymphocytes Monocytes # (Manual) Eosinophils # (Manual) Basophils # (Manual) Metamyelocytes # (Man) Myelocytes # (Manual) Promyelocytes # (Man) Blast Cells # (Man) Plasma Cell # (Manual) Other Cells # Nucleated RBCs # (Man) Hypersegmented Neuts Hyposegmented Neuts Hypogranular Neuts Large Granular Lymphs # Lrg Granular Lymphs Hairy Cells Smudge Cells Toxic Granulation Toxic Vacuolation Dohle Bodies Dre Rods Platelet Estimate Hypogranular Platelets Giant Platelets Platelet Satelliting RBC Morphology Polychromasia Hypochromasia Poikilocytosis Basophilic Stippling Anisocytosis Microcytosis Macrocytosis Spherocytes Pappenheimer Bodies Sickle Cells Target Cells Tear Drop Cells Ovalocytes Stomatocytes [place] Bodies Echinocytes Acanthocytes (Spur) Rouleaux RBC Agglutinates Schistocytes Sezary Cell Sodium Potassium Chloride Carbon Dioxide Anion Gap BUN Creatinine Est Cr Clr Drug Dosing eGFR BUN/Creatinine Ratio Glucose Estimat Average Glucose Hemoglobin A1c Calcium Triglycerides Cholesterol LDL Cholesterol, Calc VLDL Cholesterol, Calc HDL Cholesterol Cholesterol/HDL Ratio Blood Parasites ID 06/18/25 06/18/25 06/18/25 05:24 05:24 05:24 WBC RBC Hgb Hct MCV MCH MCHC RDW Std Deviation RDW Coeff of [place] Plt Count MPV Immature Gran % (Auto) Neut % (Auto) Lymph % (Auto) [place] % (Auto) Eos % (Auto) Baso % (Auto) Neut # (Auto) Lymph # (Auto) [place] # (Auto) Eos # (Auto) Baso # (Auto) Immature Gran # (Auto) Absolute Nucleated RBC Nucleated RBC % (auto) Neutrophils % (Manual) Band Neutrophils % Lymphocytes % (Manual) Prolymphocyte % Reactive Lymphs % (Man) Monocytes % (Manual) Eosinophils % (Manual) Basophils % (Manual) Metamyelocytes % (Man) Myelocytes % (Man) Promyelocytes % (Man) Cancelled Blast Cells % (Manual) Cancelled Cancelled Plasma Cell % (Manual) Cancelled Cancelled Other Cells % Cancelled Nucleated RBC % Neutrophils # (Manual) Band Neutrophils # Total Absolute Neuts Lymphocytes # (Manual) Prolymphocyte # Reactive Lymphs # Total Abs Lymphocytes Monocytes # (Manual) Eosinophils # (Manual) Basophils # (Manual) Metamyelocytes # (Man) Myelocytes # (Manual) Promyelocytes # (Man) Blast Cells # (Man) Plasma Cell # (Manual) Other Cells # Nucleated RBCs # (Man) Hypersegmented Neuts Hyposegmented Neuts Hypogranular Neuts Large Granular Lymphs # Lrg Granular Lymphs Hairy Cells Smudge Cells Toxic Granulation Toxic Vacuolation Dohle Bodies Dre Rods Platelet Estimate Hypogranular Platelets Giant Platelets Platelet Satelliting RBC Morphology Polychromasia Hypochromasia Poikilocytosis Basophilic Stippling Anisocytosis Microcytosis Macrocytosis Spherocytes Pappenheimer Bodies Sickle Cells Target Cells Tear Drop Cells Ovalocytes Stomatocytes [place] Bodies Echinocytes Acanthocytes (Spur) Rouleaux RBC Agglutinates Schistocytes Sezary Cell Sodium Potassium Chloride Carbon Dioxide Anion Gap BUN Creatinine Est Cr Clr Drug Dosing eGFR BUN/Creatinine Ratio Glucose Estimat Average Glucose Hemoglobin A1c Calcium Triglycerides Cholesterol LDL Cholesterol, Calc VLDL Cholesterol, Calc HDL Cholesterol Cholesterol/HDL Ratio Blood Parasites ID 06/18/25 06/18/25 06/18/25 05:24 05:24 05:24 WBC RBC Hgb Hct MCV MCH MCHC RDW Std Deviation RDW Coeff of [place] Plt Count MPV Immature Gran % (Auto) Neut % (Auto) Lymph % (Auto) [place] % (Auto) Eos % (Auto) Baso % (Auto) Neut # (Auto) Lymph # (Auto) [place] # (Auto) Eos # (Auto) Baso # (Auto) Immature Gran # (Auto) Absolute Nucleated RBC Nucleated RBC % (auto) Neutrophils % (Manual) Band Neutrophils % Lymphocytes % (Manual) Prolymphocyte % Reactive Lymphs % (Man) Monocytes % (Manual) Eosinophils % (Manual) Basophils % (Manual) Metamyelocytes % (Man) Myelocytes % (Man) Promyelocytes % (Man) Blast Cells % (Manual) Plasma Cell % (Manual) Other Cells % Cancelled Nucleated RBC % Cancelled Cancelled Neutrophils # (Manual) Cancelled Cancelled Band Neutrophils # Cancelled Total Absolute Neuts Lymphocytes # (Manual) Prolymphocyte # Reactive Lymphs # Total Abs Lymphocytes Monocytes # (Manual) Eosinophils # (Manual) Basophils # (Manual) Metamyelocytes # (Man) Myelocytes # (Manual) Promyelocytes # (Man) Blast Cells # (Man) Plasma Cell # (Manual) Other Cells # Nucleated RBCs # (Man) Hypersegmented Neuts Hyposegmented Neuts Hypogranular Neuts Large Granular Lymphs # Lrg Granular Lymphs Hairy Cells Smudge Cells Toxic Granulation Toxic Vacuolation Dohle Bodies Dre Rods Platelet Estimate Hypogranular Platelets Giant Platelets Platelet Satelliting RBC Morphology Polychromasia Hypochromasia Poikilocytosis Basophilic Stippling Anisocytosis Microcytosis Macrocytosis Spherocytes Pappenheimer Bodies Sickle Cells Target Cells Tear Drop Cells Ovalocytes Stomatocytes [place] Bodies Echinocytes Acanthocytes (Spur) Rouleaux RBC Agglutinates Schistocytes Sezary Cell Sodium Potassium Chloride Carbon Dioxide Anion Gap BUN Creatinine Est Cr Clr Drug Dosing eGFR BUN/Creatinine Ratio Glucose Estimat Average Glucose Hemoglobin A1c Calcium Triglycerides Cholesterol LDL Cholesterol, Calc VLDL Cholesterol, Calc HDL Cholesterol Cholesterol/HDL Ratio Blood Parasites ID 06/18/25 06/18/25 06/18/25 05:24 05:24 05:24 WBC RBC Hgb Hct MCV MCH MCHC RDW Std Deviation RDW Coeff of [place] Plt Count MPV Immature Gran % (Auto) Neut % (Auto) Lymph % (Auto) [place] % (Auto) Eos % (Auto) Baso % (Auto) Neut # (Auto) Lymph # (Auto) [place] # (Auto) Eos # (Auto) Baso # (Auto) Immature Gran # (Auto) Absolute Nucleated RBC Nucleated RBC % (auto) Neutrophils % (Manual) Band Neutrophils % Lymphocytes % (Manual) Prolymphocyte % Reactive Lymphs % (Man) Monocytes % (Manual) Eosinophils % (Manual) Basophils % (Manual) Metamyelocytes % (Man) Myelocytes % (Man) Promyelocytes % (Man) Blast Cells % (Manual) Plasma Cell % (Manual) Other Cells % Nucleated RBC % Neutrophils # (Manual) Band Neutrophils # Cancelled Total Absolute Neuts Cancelled Cancelled Lymphocytes # (Manual) Cancelled Cancelled Prolymphocyte # Cancelled Reactive Lymphs # Total Abs Lymphocytes Monocytes # (Manual) Eosinophils # (Manual) Basophils # (Manual) Metamyelocytes # (Man) Myelocytes # (Manual) Promyelocytes # (Man) Blast Cells # (Man) Plasma Cell # (Manual) Other Cells # Nucleated RBCs # (Man) Hypersegmented Neuts Hyposegmented Neuts Hypogranular Neuts Large Granular Lymphs # Lrg Granular Lymphs Hairy Cells Smudge Cells Toxic Granulation Toxic Vacuolation Dohle Bodies Dre Rods Platelet Estimate Hypogranular Platelets Giant Platelets Platelet Satelliting RBC Morphology Polychromasia Hypochromasia Poikilocytosis Basophilic Stippling Anisocytosis Microcytosis Macrocytosis Spherocytes Pappenheimer Bodies Sickle Cells Target Cells Tear Drop Cells Ovalocytes Stomatocytes [place] Bodies Echinocytes Acanthocytes (Spur) Rouleaux RBC Agglutinates Schistocytes Sezary Cell Sodium Potassium Chloride Carbon Dioxide Anion Gap BUN Creatinine Est Cr Clr Drug Dosing eGFR BUN/Creatinine Ratio Glucose Estimat Average Glucose Hemoglobin A1c Calcium Triglycerides Cholesterol LDL Cholesterol, Calc VLDL Cholesterol, Calc HDL Cholesterol Cholesterol/HDL Ratio Blood Parasites ID 06/18/25 06/18/25 06/18/25 05:24 05:24 05:24 WBC RBC Hgb Hct MCV MCH MCHC RDW Std Deviation RDW Coeff of [place] Plt Count MPV Immature Gran % (Auto) Neut % (Auto) Lymph % (Auto) [place] % (Auto) Eos % (Auto) Baso % (Auto) Neut # (Auto) Lymph # (Auto) [place] # (Auto) Eos # (Auto) Baso # (Auto) Immature Gran # (Auto) Absolute Nucleated RBC Nucleated RBC % (auto) Neutrophils % (Manual) Band Neutrophils % Lymphocytes % (Manual) Prolymphocyte % Reactive Lymphs % (Man) Monocytes % (Manual) Eosinophils % (Manual) Basophils % (Manual) Metamyelocytes % (Man) Myelocytes % (Man) Promyelocytes % (Man) Blast Cells % (Manual) Plasma Cell % (Manual) Other Cells % Nucleated RBC % Neutrophils # (Manual) Band Neutrophils # Total Absolute Neuts Lymphocytes # (Manual) Prolymphocyte # Cancelled Reactive Lymphs # Cancelled Cancelled Total Abs Lymphocytes Cancelled Cancelled Monocytes # (Manual) Cancelled Eosinophils # (Manual) Basophils # (Manual) Metamyelocytes # (Man) Myelocytes # (Manual) Promyelocytes # (Man) Blast Cells # (Man) Plasma Cell # (Manual) Other Cells # Nucleated RBCs # (Man) Hypersegmented Neuts Hyposegmented Neuts Hypogranular Neuts Large Granular Lymphs # Lrg Granular Lymphs Hairy Cells Smudge Cells Toxic Granulation Toxic Vacuolation Dohle Bodies Dre Rods Platelet Estimate Hypogranular Platelets Giant Platelets Platelet Satelliting RBC Morphology Polychromasia Hypochromasia Poikilocytosis Basophilic Stippling Anisocytosis Microcytosis Macrocytosis Spherocytes Pappenheimer Bodies Sickle Cells Target Cells Tear Drop Cells Ovalocytes Stomatocytes [place] Bodies Echinocytes Acanthocytes (Spur) Rouleaux RBC Agglutinates Schistocytes Sezary Cell Sodium Potassium Chloride Carbon Dioxide Anion Gap BUN Creatinine Est Cr Clr Drug Dosing eGFR BUN/Creatinine Ratio Glucose Estimat Average Glucose Hemoglobin A1c Calcium Triglycerides Cholesterol LDL Cholesterol, Calc VLDL Cholesterol, Calc HDL Cholesterol Cholesterol/HDL Ratio Blood Parasites ID 06/18/25 06/18/25 06/18/25 05:24 05:24 05:24 WBC RBC Hgb Hct MCV MCH MCHC RDW Std Deviation RDW Coeff of [place] Plt Count MPV Immature Gran % (Auto) Neut % (Auto) Lymph % (Auto) [place] % (Auto) Eos % (Auto) Baso % (Auto) Neut # (Auto) Lymph # (Auto) [place] # (Auto) Eos # (Auto) Baso # (Auto) Immature Gran # (Auto) Absolute Nucleated RBC Nucleated RBC % (auto) Neutrophils % (Manual) Band Neutrophils % Lymphocytes % (Manual) Prolymphocyte % Reactive Lymphs % (Man) Monocytes % (Manual) Eosinophils % (Manual) Basophils % (Manual) Metamyelocytes % (Man) Myelocytes % (Man) Promyelocytes % (Man) Blast Cells % (Manual) Plasma Cell % (Manual) Other Cells % Nucleated RBC % Neutrophils # (Manual) Band Neutrophils # Total Absolute Neuts Lymphocytes # (Manual) Prolymphocyte # Reactive Lymphs # Total Abs Lymphocytes Monocytes # (Manual) Cancelled Eosinophils # (Manual) Cancelled Cancelled Basophils # (Manual) Cancelled Cancelled Metamyelocytes # (Man) Cancelled Myelocytes # (Manual) Promyelocytes # (Man) Blast Cells # (Man) Plasma Cell # (Manual) Other Cells # Nucleated RBCs # (Man) Hypersegmented Neuts Hyposegmented Neuts Hypogranular Neuts Large Granular Lymphs # Lrg Granular Lymphs Hairy Cells Smudge Cells Toxic Granulation Toxic Vacuolation Dohle Bodies Dre Rods Platelet Estimate Hypogranular Platelets Giant Platelets Platelet Satelliting RBC Morphology Polychromasia Hypochromasia Poikilocytosis Basophilic Stippling Anisocytosis Microcytosis Macrocytosis Spherocytes Pappenheimer Bodies Sickle Cells Target Cells Tear Drop Cells Ovalocytes Stomatocytes [place] Bodies Echinocytes Acanthocytes (Spur) Rouleaux RBC Agglutinates Schistocytes Sezary Cell Sodium Potassium Chloride Carbon Dioxide Anion Gap BUN Creatinine Est Cr Clr Drug Dosing eGFR BUN/Creatinine Ratio Glucose Estimat Average Glucose Hemoglobin A1c Calcium Triglycerides Cholesterol LDL Cholesterol, Calc VLDL Cholesterol, Calc HDL Cholesterol Cholesterol/HDL Ratio Blood Parasites ID 06/18/25 06/18/25 06/18/25 05:24 05:24 05:24 WBC RBC Hgb Hct MCV MCH MCHC RDW Std Deviation RDW Coeff of [place] Plt Count MPV Immature Gran % (Auto) Neut % (Auto) Lymph % (Auto) [place] % (Auto) Eos % (Auto) Baso % (Auto) Neut # (Auto) Lymph # (Auto) [place] # (Auto) Eos # (Auto) Baso # (Auto) Immature Gran # (Auto) Absolute Nucleated RBC Nucleated RBC % (auto) Neutrophils % (Manual) Band Neutrophils % Lymphocytes % (Manual) Prolymphocyte % Reactive Lymphs % (Man) Monocytes % (Manual) Eosinophils % (Manual) Basophils % (Manual) Metamyelocytes % (Man) Myelocytes % (Man) Promyelocytes % (Man) Blast Cells % (Manual) Plasma Cell % (Manual) Other Cells % Nucleated RBC % Neutrophils # (Manual) Band Neutrophils # Total Absolute Neuts Lymphocytes # (Manual) Prolymphocyte # Reactive Lymphs # Total Abs Lymphocytes Monocytes # (Manual) Eosinophils # (Manual) Basophils # (Manual) Metamyelocytes # (Man) Cancelled Myelocytes # (Manual) Cancelled Cancelled Promyelocytes # (Man) Cancelled Cancelled Blast Cells # (Man) Cancelled Plasma Cell # (Manual) Other Cells # Nucleated RBCs # (Man) Hypersegmented Neuts Hyposegmented Neuts Hypogranular Neuts Large Granular Lymphs # Lrg Granular Lymphs Hairy Cells Smudge Cells Toxic Granulation Toxic Vacuolation Dohle Bodies Dre Rods Platelet Estimate Hypogranular Platelets Giant Platelets Platelet Satelliting RBC Morphology Polychromasia Hypochromasia Poikilocytosis Basophilic Stippling Anisocytosis Microcytosis Macrocytosis Spherocytes Pappenheimer Bodies Sickle Cells Target Cells Tear Drop Cells Ovalocytes Stomatocytes [place] Bodies Echinocytes Acanthocytes (Spur) Rouleaux RBC Agglutinates Schistocytes Sezary Cell Sodium Potassium Chloride Carbon Dioxide Anion Gap BUN Creatinine Est Cr Clr Drug Dosing eGFR BUN/Creatinine Ratio Glucose Estimat Average Glucose Hemoglobin A1c Calcium Triglycerides Cholesterol LDL Cholesterol, Calc VLDL Cholesterol, Calc HDL Cholesterol Cholesterol/HDL Ratio Blood Parasites ID 06/18/25 06/18/25 06/18/25 05:24 05:24 05:24 WBC RBC Hgb Hct MCV MCH MCHC RDW Std Deviation RDW Coeff of [place] Plt Count MPV Immature Gran % (Auto) Neut % (Auto) Lymph % (Auto) [place] % (Auto) Eos % (Auto) Baso % (Auto) Neut # (Auto) Lymph # (Auto) [place] # (Auto) Eos # (Auto) Baso # (Auto) Immature Gran # (Auto) Absolute Nucleated RBC Nucleated RBC % (auto) Neutrophils % (Manual) Band Neutrophils % Lymphocytes % (Manual) Prolymphocyte % Reactive Lymphs % (Man) Monocytes % (Manual) Eosinophils % (Manual) Basophils % (Manual) Metamyelocytes % (Man) Myelocytes % (Man) Promyelocytes % (Man) Blast Cells % (Manual) Plasma Cell % (Manual) Other Cells % Nucleated RBC % Neutrophils # (Manual) Band Neutrophils # Total Absolute Neuts Lymphocytes # (Manual) Prolymphocyte # Reactive Lymphs # Total Abs Lymphocytes Monocytes # (Manual) Eosinophils # (Manual) Basophils # (Manual) Metamyelocytes # (Man) Myelocytes # (Manual) Promyelocytes # (Man) Blast Cells # (Man) Cancelled Plasma Cell # (Manual) Cancelled Cancelled Other Cells # Cancelled Cancelled Nucleated RBCs # (Man) Cancelled Hypersegmented Neuts Hyposegmented Neuts Hypogranular Neuts Large Granular Lymphs # Lrg Granular Lymphs Hairy Cells Smudge Cells Toxic Granulation Toxic Vacuolation Dohle Bodies Dre Rods Platelet Estimate Hypogranular Platelets Giant Platelets Platelet Satelliting RBC Morphology Polychromasia Hypochromasia Poikilocytosis Basophilic Stippling Anisocytosis Microcytosis Macrocytosis Spherocytes Pappenheimer Bodies Sickle Cells Target Cells Tear Drop Cells Ovalocytes Stomatocytes [place] Bodies Echinocytes Acanthocytes (Spur) Rouleaux RBC Agglutinates Schistocytes Sezary Cell Sodium Potassium Chloride Carbon Dioxide Anion Gap BUN Creatinine Est Cr Clr Drug Dosing eGFR BUN/Creatinine Ratio Glucose Estimat Average Glucose Hemoglobin A1c Calcium Triglycerides Cholesterol LDL Cholesterol, Calc VLDL Cholesterol, Calc HDL Cholesterol Cholesterol/HDL Ratio Blood Parasites ID 06/18/25 06/18/25 06/18/25 05:24 05:24 05:24 WBC RBC Hgb Hct MCV MCH MCHC RDW Std Deviation RDW Coeff of [place] Plt Count MPV Immature Gran % (Auto) Neut % (Auto) Lymph % (Auto) [place] % (Auto) Eos % (Auto) Baso % (Auto) Neut # (Auto) Lymph # (Auto) [place] # (Auto) Eos # (Auto) Baso # (Auto) Immature Gran # (Auto) Absolute Nucleated RBC Nucleated RBC % (auto) Neutrophils % (Manual) Band Neutrophils % Lymphocytes % (Manual) Prolymphocyte % Reactive Lymphs % (Man) Monocytes % (Manual) Eosinophils % (Manual) Basophils % (Manual) Metamyelocytes % (Man) Myelocytes % (Man) Promyelocytes % (Man) Blast Cells % (Manual) Plasma Cell % (Manual) Other Cells % Nucleated RBC % Neutrophils # (Manual) Band Neutrophils # Total Absolute Neuts Lymphocytes # (Manual) Prolymphocyte # Reactive Lymphs # Total Abs Lymphocytes Monocytes # (Manual) Eosinophils # (Manual) Basophils # (Manual) Metamyelocytes # (Man) Myelocytes # (Manual) Promyelocytes # (Man) Blast Cells # (Man) Plasma Cell # (Manual) Other Cells # Nucleated RBCs # (Man) Cancelled Hypersegmented Neuts Cancelled Cancelled Hyposegmented Neuts Cancelled Cancelled Hypogranular Neuts Cancelled Large Granular Lymphs # Lrg Granular Lymphs Hairy Cells Smudge Cells Toxic Granulation Toxic Vacuolation Dohle Bodies Dre Rods Platelet Estimate Hypogranular Platelets Giant Platelets Platelet Satelliting RBC Morphology Polychromasia Hypochromasia Poikilocytosis Basophilic Stippling Anisocytosis Microcytosis Macrocytosis Spherocytes Pappenheimer Bodies Sickle Cells Target Cells Tear Drop Cells Ovalocytes Stomatocytes [place] Bodies Echinocytes Acanthocytes (Spur) Rouleaux RBC Agglutinates Schistocytes Sezary Cell Sodium Potassium Chloride Carbon Dioxide Anion Gap BUN Creatinine Est Cr Clr Drug Dosing eGFR BUN/Creatinine Ratio Glucose Estimat Average Glucose Hemoglobin A1c Calcium Triglycerides Cholesterol LDL Cholesterol, Calc VLDL Cholesterol, Calc HDL Cholesterol Cholesterol/HDL Ratio Blood Parasites ID 06/18/25 06/18/25 06/18/25 05:24 05:24 05:24 WBC RBC Hgb Hct MCV MCH MCHC RDW Std Deviation RDW Coeff of [place] Plt Count MPV Immature Gran % (Auto) Neut % (Auto) Lymph % (Auto) [place] % (Auto) Eos % (Auto) Baso % (Auto) Neut # (Auto) Lymph # (Auto) [place] # (Auto) Eos # (Auto) Baso # (Auto) Immature Gran # (Auto) Absolute Nucleated RBC Nucleated RBC % (auto) Neutrophils % (Manual) Band Neutrophils % Lymphocytes % (Manual) Prolymphocyte % Reactive Lymphs % (Man) Monocytes % (Manual) Eosinophils % (Manual) Basophils % (Manual) Metamyelocytes % (Man) Myelocytes % (Man) Promyelocytes % (Man) Blast Cells % (Manual) Plasma Cell % (Manual) Other Cells % Nucleated RBC % Neutrophils # (Manual) Band Neutrophils # Total Absolute Neuts Lymphocytes # (Manual) Prolymphocyte # Reactive Lymphs # Total Abs Lymphocytes Monocytes # (Manual) Eosinophils # (Manual) Basophils # (Manual) Metamyelocytes # (Man) Myelocytes # (Manual) Promyelocytes # (Man) Blast Cells # (Man) Plasma Cell # (Manual) Other Cells # Nucleated RBCs # (Man) Hypersegmented Neuts Hyposegmented Neuts Hypogranular Neuts Cancelled Large Granular Lymphs Cancelled Cancelled # Lrg Granular Lymphs Cancelled Cancelled Hairy Cells Cancelled Smudge Cells Toxic Granulation Toxic Vacuolation Dohle Bodies Dre Rods Platelet Estimate Hypogranular Platelets Giant Platelets Platelet Satelliting RBC Morphology Polychromasia Hypochromasia Poikilocytosis Basophilic Stippling Anisocytosis Microcytosis Macrocytosis Spherocytes Pappenheimer Bodies Sickle Cells Target Cells Tear Drop Cells Ovalocytes Stomatocytes [place] Bodies Echinocytes Acanthocytes (Spur) Rouleaux RBC Agglutinates Schistocytes Sezary Cell Sodium Potassium Chloride Carbon Dioxide Anion Gap BUN Creatinine Est Cr Clr Drug Dosing eGFR BUN/Creatinine Ratio Glucose Estimat Average Glucose Hemoglobin A1c Calcium Triglycerides Cholesterol LDL Cholesterol, Calc VLDL Cholesterol, Calc HDL Cholesterol Cholesterol/HDL Ratio Blood Parasites ID 06/18/25 06/18/25 06/18/25 05:24 05:24 05:24 WBC RBC Hgb Hct MCV MCH MCHC RDW Std Deviation RDW Coeff of [place] Plt Count MPV Immature Gran % (Auto) Neut % (Auto) Lymph % (Auto) [place] % (Auto) Eos % (Auto) Baso % (Auto) Neut # (Auto) Lymph # (Auto) [place] # (Auto) Eos # (Auto) Baso # (Auto) Immature Gran # (Auto) Absolute Nucleated RBC Nucleated RBC % (auto) Neutrophils % (Manual) Band Neutrophils % Lymphocytes % (Manual) Prolymphocyte % Reactive Lymphs % (Man) Monocytes % (Manual) Eosinophils % (Manual) Basophils % (Manual) Metamyelocytes % (Man) Myelocytes % (Man) Promyelocytes % (Man) Blast Cells % (Manual) Plasma Cell % (Manual) Other Cells % Nucleated RBC % Neutrophils # (Manual) Band Neutrophils # Total Absolute Neuts Lymphocytes # (Manual) Prolymphocyte # Reactive Lymphs # Total Abs Lymphocytes Monocytes # (Manual) Eosinophils # (Manual) Basophils # (Manual) Metamyelocytes # (Man) Myelocytes # (Manual) Promyelocytes # (Man) Blast Cells # (Man) Plasma Cell # (Manual) Other Cells # Nucleated RBCs # (Man) Hypersegmented Neuts Hyposegmented Neuts Hypogranular Neuts Large Granular Lymphs # Lrg Granular Lymphs Hairy Cells Cancelled Smudge Cells Cancelled Cancelled Toxic Granulation Cancelled Cancelled Toxic Vacuolation Cancelled Dohle Bodies Rde Rods Platelet Estimate Hypogranular Platelets Giant Platelets Platelet Satelliting RBC Morphology Polychromasia Hypochromasia Poikilocytosis Basophilic Stippling Anisocytosis Microcytosis Macrocytosis Spherocytes Pappenheimer Bodies Sickle Cells Target Cells Tear Drop Cells Ovalocytes Stomatocytes [place] Bodies Echinocytes Acanthocytes (Spur) Rouleaux RBC Agglutinates Schistocytes Sezary Cell Sodium Potassium Chloride Carbon Dioxide Anion Gap BUN Creatinine Est Cr Clr Drug Dosing eGFR BUN/Creatinine Ratio Glucose Estimat Average Glucose Hemoglobin A1c Calcium Triglycerides Cholesterol LDL Cholesterol, Calc VLDL Cholesterol, Calc HDL Cholesterol Cholesterol/HDL Ratio Blood Parasites ID 06/18/25 06/18/25 06/18/25 05:24 05:24 05:24 WBC RBC Hgb Hct MCV MCH MCHC RDW Std Deviation RDW Coeff of [place] Plt Count MPV Immature Gran % (Auto) Neut % (Auto) Lymph % (Auto) [place] % (Auto) Eos % (Auto) Baso % (Auto) Neut # (Auto) Lymph # (Auto) [place] # (Auto) Eos # (Auto) Baso # (Auto) Immature Gran # (Auto) Absolute Nucleated RBC Nucleated RBC % (auto) Neutrophils % (Manual) Band Neutrophils % Lymphocytes % (Manual) Prolymphocyte % Reactive Lymphs % (Man) Monocytes % (Manual) Eosinophils % (Manual) Basophils % (Manual) Metamyelocytes % (Man) Myelocytes % (Man) Promyelocytes % (Man) Blast Cells % (Manual) Plasma Cell % (Manual) Other Cells % Nucleated RBC % Neutrophils # (Manual) Band Neutrophils # Total Absolute Neuts Lymphocytes # (Manual) Prolymphocyte # Reactive Lymphs # Total Abs Lymphocytes Monocytes # (Manual) Eosinophils # (Manual) Basophils # (Manual) Metamyelocytes # (Man) Myelocytes # (Manual) Promyelocytes # (Man) Blast Cells # (Man) Plasma Cell # (Manual) Other Cells # Nucleated RBCs # (Man) Hypersegmented Neuts Hyposegmented Neuts Hypogranular Neuts Large Granular Lymphs # Lrg Granular Lymphs Hairy Cells Smudge Cells Toxic Granulation Toxic Vacuolation Cancelled Dohle Bodies Cancelled Cancelled Dre Rods Cancelled Cancelled Platelet Estimate Cancelled Hypogranular Platelets Giant Platelets Platelet Satelliting RBC Morphology Polychromasia Hypochromasia Poikilocytosis Basophilic Stippling Anisocytosis Microcytosis Macrocytosis Spherocytes Pappenheimer Bodies Sickle Cells Target Cells Tear Drop Cells Ovalocytes Stomatocytes [place] Bodies Echinocytes Acanthocytes (Spur) Rouleaux RBC Agglutinates Schistocytes Sezary Cell Sodium Potassium Chloride Carbon Dioxide Anion Gap BUN Creatinine Est Cr Clr Drug Dosing eGFR BUN/Creatinine Ratio Glucose Estimat Average Glucose Hemoglobin A1c Calcium Triglycerides Cholesterol LDL Cholesterol, Calc VLDL Cholesterol, Calc HDL Cholesterol Cholesterol/HDL Ratio Blood Parasites ID 06/18/25 06/18/25 06/18/25 05:24 05:24 05:24 WBC RBC Hgb Hct MCV MCH MCHC RDW Std Deviation RDW Coeff of [place] Plt Count MPV Immature Gran % (Auto) Neut % (Auto) Lymph % (Auto) [place] % (Auto) Eos % (Auto) Baso % (Auto) Neut # (Auto) Lymph # (Auto) [place] # (Auto) Eos # (Auto) Baso # (Auto) Immature Gran # (Auto) Absolute Nucleated RBC Nucleated RBC % (auto) Neutrophils % (Manual) Band Neutrophils % Lymphocytes % (Manual) Prolymphocyte % Reactive Lymphs % (Man) Monocytes % (Manual) Eosinophils % (Manual) Basophils % (Manual) Metamyelocytes % (Man) Myelocytes % (Man) Promyelocytes % (Man) Blast Cells % (Manual) Plasma Cell % (Manual) Other Cells % Nucleated RBC % Neutrophils # (Manual) Band Neutrophils # Total Absolute Neuts Lymphocytes # (Manual) Prolymphocyte # Reactive Lymphs # Total Abs Lymphocytes Monocytes # (Manual) Eosinophils # (Manual) Basophils # (Manual) Metamyelocytes # (Man) Myelocytes # (Manual) Promyelocytes # (Man) Blast Cells # (Man) Plasma Cell # (Manual) Other Cells # Nucleated RBCs # (Man) Hypersegmented Neuts Hyposegmented Neuts Hypogranular Neuts Large Granular Lymphs # Lrg Granular Lymphs Hairy Cells Smudge Cells Toxic Granulation Toxic Vacuolation Dohle Bodies Dre Rods Platelet Estimate Cancelled Hypogranular Platelets Cancelled Cancelled Giant Platelets Cancelled Cancelled Platelet Satelliting Cancelled RBC Morphology Polychromasia Hypochromasia Poikilocytosis Basophilic Stippling Anisocytosis Microcytosis Macrocytosis Spherocytes Pappenheimer Bodies Sickle Cells Target Cells Tear Drop Cells Ovalocytes Stomatocytes [place] Bodies Echinocytes Acanthocytes (Spur) Rouleaux RBC Agglutinates Schistocytes Sezary Cell Sodium Potassium Chloride Carbon Dioxide Anion Gap BUN Creatinine Est Cr Clr Drug Dosing eGFR BUN/Creatinine Ratio Glucose Estimat Average Glucose Hemoglobin A1c Calcium Triglycerides Cholesterol LDL Cholesterol, Calc VLDL Cholesterol, Calc HDL Cholesterol Cholesterol/HDL Ratio Blood Parasites ID 06/18/25 06/18/25 06/18/25 05:24 05:24 05:24 WBC RBC Hgb Hct MCV MCH MCHC RDW Std Deviation RDW Coeff of [place] Plt Count MPV Immature Gran % (Auto) Neut % (Auto) Lymph % (Auto) [place] % (Auto) Eos % (Auto) Baso % (Auto) Neut # (Auto) Lymph # (Auto) [place] # (Auto) Eos # (Auto) Baso # (Auto) Immature Gran # (Auto) Absolute Nucleated RBC Nucleated RBC % (auto) Neutrophils % (Manual) Band Neutrophils % Lymphocytes % (Manual) Prolymphocyte % Reactive Lymphs % (Man) Monocytes % (Manual) Eosinophils % (Manual) Basophils % (Manual) Metamyelocytes % (Man) Myelocytes % (Man) Promyelocytes % (Man) Blast Cells % (Manual) Plasma Cell % (Manual) Other Cells % Nucleated RBC % Neutrophils # (Manual) Band Neutrophils # Total Absolute Neuts Lymphocytes # (Manual) Prolymphocyte # Reactive Lymphs # Total Abs Lymphocytes Monocytes # (Manual) Eosinophils # (Manual) Basophils # (Manual) Metamyelocytes # (Man) Myelocytes # (Manual) Promyelocytes # (Man) Blast Cells # (Man) Plasma Cell # (Manual) Other Cells # Nucleated RBCs # (Man) Hypersegmented Neuts Hyposegmented Neuts Hypogranular Neuts Large Granular Lymphs # Lrg Granular Lymphs Hairy Cells Smudge Cells Toxic Granulation Toxic Vacuolation Dohle Bodies Dre Rods Platelet Estimate Hypogranular Platelets Giant Platelets Platelet Satelliting Cancelled RBC Morphology Cancelled Cancelled Polychromasia Cancelled Cancelled Hypochromasia Cancelled Poikilocytosis Basophilic Stippling Anisocytosis Microcytosis Macrocytosis Spherocytes Pappenheimer Bodies Sickle Cells Target Cells Tear Drop Cells Ovalocytes Stomatocytes [place] Bodies Echinocytes Acanthocytes (Spur) Rouleaux RBC Agglutinates Schistocytes Sezary Cell Sodium Potassium Chloride Carbon Dioxide Anion Gap BUN Creatinine Est Cr Clr Drug Dosing eGFR BUN/Creatinine Ratio Glucose Estimat Average Glucose Hemoglobin A1c Calcium Triglycerides Cholesterol LDL Cholesterol, Calc VLDL Cholesterol, Calc HDL Cholesterol Cholesterol/HDL Ratio Blood Parasites ID 06/18/25 06/18/25 06/18/25 05:24 05:24 05:24 WBC RBC Hgb Hct MCV MCH MCHC RDW Std Deviation RDW Coeff of [place] Plt Count MPV Immature Gran % (Auto) Neut % (Auto) Lymph % (Auto) [place] % (Auto) Eos % (Auto) Baso % (Auto) Neut # (Auto) Lymph # (Auto) [place] # (Auto) Eos # (Auto) Baso # (Auto) Immature Gran # (Auto) Absolute Nucleated RBC Nucleated RBC % (auto) Neutrophils % (Manual) Band Neutrophils % Lymphocytes % (Manual) Prolymphocyte % Reactive Lymphs % (Man) Monocytes % (Manual) Eosinophils % (Manual) Basophils % (Manual) Metamyelocytes % (Man) Myelocytes % (Man) Promyelocytes % (Man) Blast Cells % (Manual) Plasma Cell % (Manual) Other Cells % Nucleated RBC % Neutrophils # (Manual) Band Neutrophils # Total Absolute Neuts Lymphocytes # (Manual) Prolymphocyte # Reactive Lymphs # Total Abs Lymphocytes Monocytes # (Manual) Eosinophils # (Manual) Basophils # (Manual) Metamyelocytes # (Man) Myelocytes # (Manual) Promyelocytes # (Man) Blast Cells # (Man) Plasma Cell # (Manual) Other Cells # Nucleated RBCs # (Man) Hypersegmented Neuts Hyposegmented Neuts Hypogranular Neuts Large Granular Lymphs # Lrg Granular Lymphs Hairy Cells Smudge Cells Toxic Granulation Toxic Vacuolation Dohle Bodies Dre Rods Platelet Estimate Hypogranular Platelets Giant Platelets Platelet Satelliting RBC Morphology Polychromasia Hypochromasia Cancelled Poikilocytosis Cancelled Cancelled Basophilic Stippling Cancelled Cancelled Anisocytosis Cancelled Microcytosis Macrocytosis Spherocytes Pappenheimer Bodies Sickle Cells Target Cells Tear Drop Cells Ovalocytes Stomatocytes [place] Bodies Echinocytes Acanthocytes (Sp[place]) Rouleaux RBC Agglutinates Schistocytes Sezary Cell Sodium Potassium Chloride Carbon Dioxide Anion Gap BUN Creatinine Est Cr Clr Drug Dosing eGFR BUN/Creatinine Ratio Glucose Estimat Average Glucose Hemoglobin A1c Calcium Triglycerides Cholesterol LDL Cholesterol, Calc VLDL Cholesterol, Calc HDL Cholesterol Cholesterol/HDL Ratio Blood Parasites ID 06/18/25 06/18/25 06/18/25 05:24 05:24 05:24 WBC RBC Hgb Hct MCV MCH MCHC RDW Std Deviation RDW Coeff of [place] Plt Count MPV Immature Gran % (Auto) Neut % (Auto) Lymph % (Auto) [place] % (Auto) Eos % (Auto) Baso % (Auto) Neut # (Auto) Lymph # (Auto) [place] # (Auto) Eos # (Auto) Baso # (Auto) Immature Gran # (Auto) Absolute Nucleated RBC Nucleated RBC % (auto) Neutrophils % (Manual) Band Neutrophils % Lymphocytes % (Manual) Prolymphocyte % Reactive Lymphs % (Man) Monocytes % (Manual) Eosinophils % (Manual) Basophils % (Manual) Metamyelocytes % (Man) Myelocytes % (Man) Promyelocytes % (Man) Blast Cells % (Manual) Plasma Cell % (Manual) Other Cells % Nucleated RBC % Neutrophils # (Manual) Band Neutrophils # Total Absolute Neuts Lymphocytes # (Manual) Prolymphocyte # Reactive Lymphs # Total Abs Lymphocytes Monocytes # (Manual) Eosinophils # (Manual) Basophils # (Manual) Metamyelocytes # (Man) Myelocytes # (Manual) Promyelocytes # (Man) Blast Cells # (Man) Plasma Cell # (Manual) Other Cells # Nucleated RBCs # (Man) Hypersegmented Neuts Hyposegmented Neuts Hypogranular Neuts Large Granular Lymphs # Lrg Granular Lymphs Hairy Cells Smudge Cells Toxic Granulation Toxic Vacuolation Dohle Bodies Dre Rods Platelet Estimate Hypogranular Platelets Giant Platelets Platelet Satelliting RBC Morphology Polychromasia Hypochromasia Poikilocytosis Basophilic Stippling Anisocytosis Cancelled Microcytosis Cancelled Cancelled Macrocytosis Cancelled Cancelled Spherocytes Cancelled Pappenheimer Bodies Sickle Cells Target Cells Tear Drop Cells Ovalocytes Stomatocytes [place] Bodies Echinocytes Acanthocytes (Sp[place]) Rouleaux RBC Agglutinates Schistocytes Sezary Cell Sodium Potassium Chloride Carbon Dioxide Anion Gap BUN Creatinine Est Cr Clr Drug Dosing eGFR BUN/Creatinine Ratio Glucose Estimat Average Glucose Hemoglobin A1c Calcium Triglycerides Cholesterol LDL Cholesterol, Calc VLDL Cholesterol, Calc HDL Cholesterol Cholesterol/HDL Ratio Blood Parasites ID 06/18/25 06/18/25 06/18/25 05:24 05:24 05:24 WBC RBC Hgb Hct MCV MCH MCHC RDW Std Deviation RDW Coeff of [place] Plt Count MPV Immature Gran % (Auto) Neut % (Auto) Lymph % (Auto) [place] % (Auto) Eos % (Auto) Baso % (Auto) Neut # (Auto) Lymph # (Auto) [place] # (Auto) Eos # (Auto) Baso # (Auto) Immature Gran # (Auto) Absolute Nucleated RBC Nucleated RBC % (auto) Neutrophils % (Manual) Band Neutrophils % Lymphocytes % (Manual) Prolymphocyte % Reactive Lymphs % (Man) Monocytes % (Manual) Eosinophils % (Manual) Basophils % (Manual) Metamyelocytes % (Man) Myelocytes % (Man) Promyelocytes % (Man) Blast Cells % (Manual) Plasma Cell % (Manual) Other Cells % Nucleated RBC % Neutrophils # (Manual) Band Neutrophils # Total Absolute Neuts Lymphocytes # (Manual) Prolymphocyte # Reactive Lymphs # Total Abs Lymphocytes Monocytes # (Manual) Eosinophils # (Manual) Basophils # (Manual) Metamyelocytes # (Man) Myelocytes # (Manual) Promyelocytes # (Man) Blast Cells # (Man) Plasma Cell # (Manual) Other Cells # Nucleated RBCs # (Man) Hypersegmented Neuts Hyposegmented Neuts Hypogranular Neuts Large Granular Lymphs # Lrg Granular Lymphs Hairy Cells Smudge Cells Toxic Granulation Toxic Vacuolation Dohle Bodies Dre Rods Platelet Estimate Hypogranular Platelets Giant Platelets Platelet Satelliting RBC Morphology Polychromasia Hypochromasia Poikilocytosis Basophilic Stippling Anisocytosis Microcytosis Macrocytosis Spherocytes Cancelled [place]enheimer Bodies Cancelled Cancelled Sickle Cells Cancelled Cancelled Target Cells Cancelled Tear Drop Cells Ovalocytes Stomatocytes [place] Bodies Echinocytes Acanthocytes (Spur) Rouleaux RBC Agglutinates Schistocytes Sezary Cell Sodium Potassium Chloride Carbon Dioxide Anion Gap BUN Creatinine Est Cr Clr Drug Dosing eGFR BUN/Creatinine Ratio Glucose Estimat Average Glucose Hemoglobin A1c Calcium Triglycerides Cholesterol LDL Cholesterol, Calc VLDL Cholesterol, Calc HDL Cholesterol Cholesterol/HDL Ratio Blood Parasites ID 06/18/25 06/18/25 06/18/25 05:24 05:24 05:24 WBC RBC Hgb Hct MCV MCH MCHC RDW Std Deviation RDW Coeff of [place] Plt Count MPV Immature Gran % (Auto) Neut % (Auto) Lymph % (Auto) [place] % (Auto) Eos % (Auto) Baso % (Auto) Neut # (Auto) Lymph # (Auto) [place] # (Auto) Eos # (Auto) Baso # (Auto) Immature Gran # (Auto) Absolute Nucleated RBC Nucleated RBC % (auto) Neutrophils % (Manual) Band Neutrophils % Lymphocytes % (Manual) Prolymphocyte % Reactive Lymphs % (Man) Monocytes % (Manual) Eosinophils % (Manual) Basophils % (Manual) Metamyelocytes % (Man) Myelocytes % (Man) Promyelocytes % (Man) Blast Cells % (Manual) Plasma Cell % (Manual) Other Cells % Nucleated RBC % Neutrophils # (Manual) Band Neutrophils # Total Absolute Neuts Lymphocytes # (Manual) Prolymphocyte # Reactive Lymphs # Total Abs Lymphocytes Monocytes # (Manual) Eosinophils # (Manual) Basophils # (Manual) Metamyelocytes # (Man) Myelocytes # (Manual) Promyelocytes # (Man) Blast Cells # (Man) Plasma Cell # (Manual) Other Cells # Nucleated RBCs # (Man) Hypersegmented Neuts Hyposegmented Neuts Hypogranular Neuts Large Granular Lymphs # Lrg Granular Lymphs Hairy Cells Smudge Cells Toxic Granulation Toxic Vacuolation Dohle Bodies Dre Rods Platelet Estimate Hypogranular Platelets Giant Platelets Platelet Satelliting RBC Morphology Polychromasia Hypochromasia Poikilocytosis Basophilic Stippling Anisocytosis Microcytosis Macrocytosis Spherocytes Pappenheimer Bodies Sickle Cells Target Cells Cancelled Tear Drop Cells Cancelled Cancelled Ovalocytes Cancelled Cancelled Stomatocytes Cancelled [place] Bodies Echinocytes Acanthocytes (Spur) Rouleaux RBC Agglutinates Schistocytes Sezary Cell Sodium Potassium Chloride Carbon Dioxide Anion Gap BUN Creatinine Est Cr Clr Drug Dosing eGFR BUN/Creatinine Ratio Glucose Estimat Average Glucose Hemoglobin A1c Calcium Triglycerides Cholesterol LDL Cholesterol, Calc VLDL Cholesterol, Calc HDL Cholesterol Cholesterol/HDL Ratio Blood Parasites ID 06/18/25 06/18/25 06/18/25 05:24 05:24 05:24 WBC RBC Hgb Hct MCV MCH MCHC RDW Std Deviation RDW Coeff of [place] Plt Count MPV Immature Gran % (Auto) Neut % (Auto) Lymph % (Auto) [place] % (Auto) Eos % (Auto) Baso % (Auto) Neut # (Auto) Lymph # (Auto) [place] # (Auto) Eos # (Auto) Baso # (Auto) Immature Gran # (Auto) Absolute Nucleated RBC Nucleated RBC % (auto) Neutrophils % (Manual) Band Neutrophils % Lymphocytes % (Manual) Prolymphocyte % Reactive Lymphs % (Man) Monocytes % (Manual) Eosinophils % (Manual) Basophils % (Manual) Metamyelocytes % (Man) Myelocytes % (Man) Promyelocytes % (Man) Blast Cells % (Manual) Plasma Cell % (Manual) Other Cells % Nucleated RBC % Neutrophils # (Manual) Band Neutrophils # Total Absolute Neuts Lymphocytes # (Manual) Prolymphocyte # Reactive Lymphs # Total Abs Lymphocytes Monocytes # (Manual) Eosinophils # (Manual) Basophils # (Manual) Metamyelocytes # (Man) Myelocytes # (Manual) Promyelocytes # (Man) Blast Cells # (Man) Plasma Cell # (Manual) Other Cells # Nucleated RBCs # (Man) Hypersegmented Neuts Hyposegmented Neuts Hypogranular Neuts Large Granular Lymphs # Lrg Granular Lymphs Hairy Cells Smudge Cells Toxic Granulation Toxic Vacuolation Dohle Bodies Dre Rods Platelet Estimate Hypogranular Platelets Giant Platelets Platelet Satelliting RBC Morphology Polychromasia Hypochromasia Poikilocytosis Basophilic Stippling Anisocytosis Microcytosis Macrocytosis Spherocytes Pappenheimer Bodies Sickle Cells Target Cells Tear Drop Cells Ovalocytes Stomatocytes Cancelled [place] Bodies Cancelled Cancelled Echinocytes Cancelled Cancelled Acanthocytes (Spur) Cancelled Rouleaux RBC Agglutinates Schistocytes Sezary Cell Sodium Potassium Chloride Carbon Dioxide Anion Gap BUN Creatinine Est Cr Clr Drug Dosing eGFR BUN/Creatinine Ratio Glucose Estimat Average Glucose Hemoglobin A1c Calcium Triglycerides Cholesterol LDL Cholesterol, Calc VLDL Cholesterol, Calc HDL Cholesterol Cholesterol/HDL Ratio Blood Parasites ID 06/18/25 06/18/25 06/18/25 05:24 05:24 05:24 WBC RBC Hgb Hct MCV MCH MCHC RDW Std Deviation RDW Coeff of [place] Plt Count MPV Immature Gran % (Auto) Neut % (Auto) Lymph % (Auto) [place] % (Auto) Eos % (Auto) Baso % (Auto) Neut # (Auto) Lymph # (Auto) [place] # (Auto) Eos # (Auto) Baso # (Auto) Immature Gran # (Auto) Absolute Nucleated RBC Nucleated RBC % (auto) Neutrophils % (Manual) Band Neutrophils % Lymphocytes % (Manual) Prolymphocyte % Reactive Lymphs % (Man) Monocytes % (Manual) Eosinophils % (Manual) Basophils % (Manual) Metamyelocytes % (Man) Myelocytes % (Man) Promyelocytes % (Man) Blast Cells % (Manual) Plasma Cell % (Manual) Other Cells % Nucleated RBC % Neutrophils # (Manual) Band Neutrophils # Total Absolute Neuts Lymphocytes # (Manual) Prolymphocyte # Reactive Lymphs # Total Abs Lymphocytes Monocytes # (Manual) Eosinophils # (Manual) Basophils # (Manual) Metamyelocytes # (Man) Myelocytes # (Manual) Promyelocytes # (Man) Blast Cells # (Man) Plasma Cell # (Manual) Other Cells # Nucleated RBCs # (Man) Hypersegmented Neuts Hyposegmented Neuts Hypogranular Neuts Large Granular Lymphs # Lrg Granular Lymphs Hairy Cells Smudge Cells Toxic Granulation Toxic Vacuolation Dohle Bodies Dre Rods Platelet Estimate Hypogranular Platelets Giant Platelets Platelet Satelliting RBC Morphology Polychromasia Hypochromasia Poikilocytosis Basophilic Stippling Anisocytosis Microcytosis Macrocytosis Spherocytes Pappenheimer Bodies Sickle Cells Target Cells Tear Drop Cells Ovalocytes Stomatocytes [place] Bodies Echinocytes Acanthocytes (Spur) Cancelled Rouleaux Cancelled Cancelled RBC Agglutinates Cancelled Cancelled Schistocytes Cancelled Sezary Cell Sodium Potassium Chloride Carbon Dioxide Anion Gap BUN Creatinine Est Cr Clr Drug Dosing eGFR BUN/Creatinine Ratio Glucose Estimat Average Glucose Hemoglobin A1c Calcium Triglycerides Cholesterol LDL Cholesterol, Calc VLDL Cholesterol, Calc HDL Cholesterol Cholesterol/HDL Ratio Blood Parasites ID 06/18/25 06/18/25 06/18/25 05:24 05:24 05:24 WBC RBC Hgb Hct MCV MCH MCHC RDW Std Deviation RDW Coeff of [place] Plt Count MPV Immature Gran % (Auto) Neut % (Auto) Lymph % (Auto) [place] % (Auto) Eos % (Auto) Baso % (Auto) Neut # (Auto) Lymph # (Auto) [place] # (Auto) Eos # (Auto) Baso # (Auto) Immature Gran # (Auto) Absolute Nucleated RBC Nucleated RBC % (auto) Neutrophils % (Manual) Band Neutrophils % Lymphocytes % (Manual) Prolymphocyte % Reactive Lymphs % (Man) Monocytes % (Manual) Eosinophils % (Manual) Basophils % (Manual) Metamyelocytes % (Man) Myelocytes % (Man) Promyelocytes % (Man) Blast Cells % (Manual) Plasma Cell % (Manual) Other Cells % Nucleated RBC % Neutrophils # (Manual) Band Neutrophils # Total Absolute Neuts Lymphocytes # (Manual) Prolymphocyte # Reactive Lymphs # Total Abs Lymphocytes Monocytes # (Manual) Eosinophils # (Manual) Basophils # (Manual) Metamyelocytes # (Man) Myelocytes # (Manual) Promyelocytes # (Man) Blast Cells # (Man) Plasma Cell # (Manual) Other Cells # Nucleated RBCs # (Man) Hypersegmented Neuts Hyposegmented Neuts Hypogranular Neuts Large Granular Lymphs # Lrg Granular Lymphs Hairy Cells Smudge Cells Toxic Granulation Toxic Vacuolation Dohle Bodies Dre Rods Platelet Estimate Hypogranular Platelets Giant Platelets Platelet Satelliting RBC Morphology Polychromasia Hypochromasia Poikilocytosis Basophilic Stippling Anisocytosis Microcytosis Macrocytosis Spherocytes Pappenheimer Bodies Sickle Cells Target Cells Tear Drop Cells Ovalocytes Stomatocytes [place] Bodies Echinocytes Acanthocytes (Spur) Rouleaux RBC Agglutinates Schistocytes Cancelled Sezary Cell Cancelled Cancelled Sodium 138 Potassium 3.9 Chloride 106 Carbon Dioxide 27 Anion Gap 5 BUN 15 Creatinine 0.84 Est Cr Clr Drug Dosing 57.3 eGFR 72.87 BUN/Creatinine Ratio 17.9 Glucose 101 H Estimat Average Glucose 131 Hemoglobin A1c 6.2 H Calcium 9.2 Triglycerides 138 Cholesterol 215 H LDL Cholesterol, Calc 143 VLDL Cholesterol, Calc 28 HDL Cholesterol 44 Cholesterol/HDL Ratio 4.9 Blood Parasites ID Cancelled Cancelled 06/18/25 07:06 WBC 6.15 RBC 4.89 Hgb 13.4 Hct 41.2 MCV 84.3 MCH 27.4 MCHC 32.5 RDW Std Deviation 39.9 RDW Coeff of Kand[place] 13.2 Plt Count MPV Immature Gran % (Auto) 0.5 Neut % (Auto) 58.0 Lymph % (Auto) 26.8 Talbot % (Auto) 10.6 Eos % (Auto) 3.6 Baso % (Auto) 0.5 Neut # (Auto) 3.57 Lymph # (Auto) 1.65 Talbot # (Auto) 0.65 H Eos # (Auto) 0.22 Baso # (Auto) 0.03 Immature Gran # (Auto) 0.03 Absolute Nucleated RBC Nucleated RBC % (auto) Neutrophils % (Manual) Band Neutrophils % Lymphocytes % (Manual) Prolymphocyte % Reactive Lymphs % (Man) Monocytes % (Manual) Eosinophils % (Manual) Basophils % (Manual) Metamyelocytes % (Man) Myelocytes % (Man) Promyelocytes % (Man) Blast Cells % (Manual) Plasma Cell % (Manual) Other Cells % Nucleated RBC % Neutrophils # (Manual) Band Neutrophils # Total Absolute Neuts Lymphocytes # (Manual) Prolymphocyte # Reactive Lymphs # Total Abs Lymphocytes Monocytes # (Manual) Eosinophils # (Manual) Basophils # (Manual) Metamyelocytes # (Man) Myelocytes # (Manual) Promyelocytes # (Man) Blast Cells # (Man) Plasma Cell # (Manual) Other Cells # Nucleated RBCs # (Man) Hypersegmented Neuts Hyposegmented Neuts Hypogranular Neuts Large Granular Lymphs # Lrg Granular Lymphs Hairy Cells Smudge Cells Toxic Granulation Toxic Vacuolation Dohle Bodies Dre Rods Platelet Estimate Hypogranular Platelets Giant Platelets Platelet Satelliting RBC Morphology Polychromasia Hypochromasia Poikilocytosis Basophilic Stippling Anisocytosis Microcytosis Macrocytosis Spherocytes Pappenheimer Bodies Sickle Cells Target Cells Tear Drop Cells Ovalocytes Stomatocytes [place] Bodies Echinocytes Acanthocytes (Spur) Rouleaux RBC Agglutinates Schistocytes Sezary Cell Sodium Potassium Chloride Carbon Dioxide Anion Gap BUN Creatinine Est Cr Clr Drug Dosing eGFR BUN/Creatinine Ratio Glucose Estimat Average Glucose Hemoglobin A1c Calcium Triglycerides Cholesterol LDL Cholesterol, Calc VLDL Cholesterol, Calc HDL Cholesterol Cholesterol/HDL Ratio Blood Parasites ID Diagnostic Findings MRI of the brain shows an acute ischemic infarct of the left lateral thalamus capsular area. CTA of the head and neck shows mild atherosclerotic disease without significant stenosis or occlusion. Echocardiogram showed EF of 50-55%, grade 1 diastolic dysfunction, mild tricuspid regurgitation, atrium is normal in size. Medications Administered Home Medications Medication Instructions Recorded Confirmed Last Taken dicyclomine 20 mg tablet 20 mg PO DAILY PRN Abdominal 06/16/09 06/17/25 06/17/25 Discomfort ##0 lorazepam 0.5 mg tablet (Ativan) 0.25 mg PO HS PRN Anxiety ##0 06/16/09 06/17/25 06/16/25 losartan 25 mg tablet 25 mg PO QAM 06/24/18 06/17/25 06/17/25 meclizine 12.5 mg tablet 12.5 mg PO BID PRN Vertigo 06/24/18 06/17/25 06/04/19 05:00 pantoprazole 40 mg tablet,delayed 40 mg PO DAILYBB 06/24/18 06/17/25 06/17/25 release (Protonix) sertraline 100 mg tablet (Zoloft) 50 mg PO QAM 06/24/18 06/17/25 06/17/25 simvastatin 20 mg tablet 20 mg PO HS 06/24/18 06/17/25 06/16/25 aspirin 81 mg tablet,delayed 81 mg PO DAILY 06/17/25 06/17/25 06/17/25 release losartan 25 mg tablet 12.5 mg PO HS 06/17/25 06/17/25 06/16/25 Active Medications Generic Name Dose Route Start Last Admin Trade Name Desiree PRN Reason Stop Dose Admin Acetaminophen 650 mg 06/17/25 14:50 06/17/25 20:11 Acetaminophen 325 Mg Tab PO 07/17/25 14:49 650 mg Q4H PRN Administration Pain or Fever Aspirin 81 mg 06/18/25 09:00 06/18/25 08:40 Aspirin 81 Mg Ectab PO 07/18/25 08:59 81 mg QAM [facility] Administration Atorvastatin Calcium 80 mg 06/17/25 14:50 06/18/25 08:40 Atorvastatin 40 Mg Tab PO 07/17/25 14:49 80 mg QAM TARSHA Administration Heparin Sodium (Porcine) 5,000 units 06/17/25 21:00 06/18/25 08:44 Heparin Sod 5,000 Unit/0.5 Ml Vial SQ 07/17/25 20:59 5,000 units Q12 TARSHA Administration Lorazepam 0.25 mg 06/17/25 14:50 06/17/25 22:02 Lorazepam 0.5 Mg Tab PO 07/17/25 14:49 0.25 mg HS PRN Administration Anxiety Losartan Potassium 12.5 mg 06/17/25 21:00 06/18/25 20:05 Losartan Potassium 25 Mg Tab PO 07/17/25 20:59 12.5 mg HS TARSHA Administration Losartan Potassium 25 mg 06/18/25 09:00 06/18/25 08:40 Losartan Potassium 25 Mg Tab PO 07/18/25 08:59 25 mg QAM TARSHA Administration Ondansetron HCl 4 mg 06/17/25 14:50 06/18/25 12:09 Ondansetron Inj 2 Mg/Ml 2 Ml Vial IV 07/17/25 14:49 4 mg Q6H PRN Administration Nausea Pantoprazole Sodium 40 mg 06/18/25 06:30 06/18/25 05:28 Pantoprazole 40 Mg Tab PO 07/18/25 06:29 40 mg DAILYBB TARSHA Administration Sertraline HCl 50 mg 06/18/25 09:00 06/18/25 08:40 Sertraline Hcl 50 Mg Tablet PO 07/18/25 08:59 50 mg QAM TARSHA Administration
[2025-06-19 06:50] LABS: Hematocrit (blood only) 39.5 % (37.0-47.0); Hemoglobin 12.8 g/dl (12.0-16.0); Mean Corpuscular Hemoglobin 27.5 pg (25.0-34.0); Mean Corpuscular Volume 84.9 fL (80.0-100.0); RDW Standard Deviation 40.3 fL (36.4-46.3); Red Blood Count 4.65 M/uL (4.20-5.40); White Blood Count 6.45 K/ul (4.8-10.8)
[2025-06-19 07:01] LABS: Anion Gap 5.0 (3-11); Blood Urea Nitrogen 17.0 mg/dl (6-23); Calcium 9.1 mg/dl (8.6-10.3); Carbon Dioxide 29.0 mmol/L (21-32); Chloride 105.0 mmol/L (98-107); Creatinine Clr Calc Pharmacy 52.5 ml/min; Glucose 101.0 mg/dl (70-99(Fasting)); Potassium 4.1 mmol/L (3.5-5.1); Sodium 139.0 mmol/L (136-145)
[2025-06-19 07:05] LABS: Immature Granulocytes # (auto) 0.02 K/uL (0.01-0.20); Immature Granulocytes % (auto) 0.3 %; Polychromasia 2+
[2025-06-19 07:09] VITALS: RESP 19; TEMP 98.1
--- NOTE | 2025-06-19 08:00 | Pharmacy Report ---
- Date of Service June 19, 2025 - Pharmacy CVA/TIA Medication Review Medications to Prevent Stroke handout has been added to the patients discharge packet. Antiplatelet(s) * aspirin 81mg po daily + clopidogrel 75mg po daily Cholesterol * High intensity statin: atorvastatin 80 mg daily DVT Prophylaxis * Heparin SQ Therapeutic Anticoagulation * No history of Afib/Aflutter noted Type 2 Diabetes * Patient does not have diabetes but importance of diet/lifestyle modification to be stressed to improve HbA1c (6.2%)
[2025-06-19] MEDS: CLOPIDOGREL BISULFATE 75 MG TAB PO SCH (08:11)
--- NOTE | 2025-06-19 08:12 | Discharge Summary ---
Date of Service June 19, 2025 Admission HPI Per Admitting Provider Ms. Randall is a pleasant 75F with PMH HTN, pre DM, ischemic colitis, HLD, anxiety who presents with RUE and RLE weakness. started yesterday at 2 PM with paresthesia of her RLE. She thought she hurt her back lifting her elderly father yesterday. Her RLE then became weak and then her RUE developed similar paresthesia and weakness. She presented today for evaluation. Denies history of CVA. Patient denies F/C, CP, palpitations, SOB, dyspnea, abd pain, N/V/D Admission Exam Per Admitting Provider General: Well appearing, NAD HEENT: EOMI, PERRLA Neck: Supple Cardiac: RRR no rubs gallops or murmurs Lungs: CTA no rhonchi wheezing or rales Abd: S NT ND BS positive MSK: Full ROM. No obvious deformities Ext: No Edema cyanosis Skin: Warm, Dry Neuro: AOx3 No cranial nerve deficits. Muscle strength 4/5 in RLE and RUE. sensation to light touch intact. Psych: Normal Mood Principal Diagnosis Acute CVA Discharge Exam General- oriented x 3, not in distress HEENT - NC/AT, EOMI Neck- supple Lungs- clear breath sounds bilaterally, no rales/wheezes Heart- normal rate, regular rhythm; no murmurs Abdomen- normal bowel sounds, nondistended, soft, nontender Extremities- no pretibial edema, no calf tenderness, moves extremities Neuro- alert, oriented x 3; speech fluent, answers appropriately, no facial asymmetry, move extremities Skin- warm & dry Discharge Data Allergies Allergy/AdvReac Type Severity Reaction Status Date / Time ciprofloxacin [From Cipro] Allergy Intermediate chest Verified 06/17/25 13:52 pain, nausea, vomiting, rash Iodinated Contrast Media Allergy Intermediate nausea, Verified 06/17/25 13:52 vomiting, diarrhea latex Allergy Intermediate rash, Verified 06/17/25 13:52 blisters with "latex bandaids" Quinolones Allergy Intermediate chest Verified 06/17/25 13:52 pain, nausea, vomiting, rash with cipro/ + tachycardia nickel Allergy Mild redness, Verified 06/17/25 13:52 itching Sulfa (Sulfonamide Allergy Mild rash Verified 06/17/25 13:52 Antibiotics) metals Allergy Severe lip Uncoded 06/17/25 13:52 tingling with "metal in lipstick" per skin testing Consultations 06/17/25 13:23 ED Decision to Admit Stat 06/17/25 14:50 Consult Neurology Routine Ordered Studies 06/17/25 12:22 CT angio head w con Stat FINDINGS: Brain parenchyma: There is no evidence of hemorrhage or mass effect noting angiographic phase technique. There is age-related involutional change noting mild to moderate subcortical and periventricular microangiopathic disease. There is no evidence of enhancing mass lesion on the angiogram phase images. No extra- axial fluid collection is seen. Daniel-white matter differentiation is preserved. Ventricles, sulci, and cisterns: Prominent secondary to involutional change. CT angiogram of the brain: The internal carotid arteries at the skull base are patent, as are the anterior and middle cerebral arteries. The vertebrobasilar system and posterior cerebral arteries are patent. The left vertebral artery is dominant. The right vertebral artery largely terminates as the PICA. There is origin of the right posterior cerebral artery. A tiny posterior communicating artery is noted on the left. There is no aneurysm, high-grade stenosis, or focal vessel cutoff identified throughout the intracranial circulation. Dural sinuses: Clear as visualized. Orbits: The bony orbits are intact. The orbital contents are normal as visualized noting bilateral ocular lens implants. Sinuses and mastoids: There is trace mucosal thickening within the maxillary antra. The paranasal sinuses are otherwise clear. The mastoid air cells are well pneumatized. Calvarium: Unremarkable. IMPRESSION: 1. There is no evidence of hemorrhage or mass effect noting angiographic phase technique. 2. Unremarkable CT angiogram of the brain. CT angio neck with con Stat FINDINGS: Imaged portions of the lung apices are unremarkable. There is no cervical lymphadenopathy. There are no cervical spine fractures. The left vertebral artery is dominant and patent. The right vertebral artery ends in PICA. The bilateral common carotid and cervical internal carotid arteries are patent. There is no aneurysm or dissection within the neck. IMPRESSION:Unremarkable CTA of the neck. CT head/brain wo con Stat FINDINGS: Brain parenchyma: There is age-related involutional change noting mild to moderate subcortical and periventricular microangiopathic disease. There is no hemorrhage, mass effect, or evidence of acute territorial ischemia by CT criteria. Daniel-white matter differentiation is preserved. No extra-axial fluid collection is seen. Ventricles, sulci, cisterns: Prominent secondary to involutional change. Intracranial vasculature: There is atherosclerotic calcification of the cavernous carotid arteries. Calvarium: Unremarkable. Sinuses and mastoids: The visualized paranasal sinuses are clear. The mastoid air cells are well pneumatized. Orbits: The bony orbits are grossly intact. There are bilateral ocular lens implants. IMPRESSION: There is no hemorrhage, mass effect, or evidence of acute territorial ischemia by CT criteria. 06/17/25 14:50 MR brain wo con Routine Findings: There is a 5 mm focus of restricted diffusion in the lateral left thalamus. This is consistent with an acute infarct There is cerebral atrophy, within expected limits for the patient's age. There are focal and confluent areas of increased T2 signal intensity within the periventricular white matter of the cerebral hemispheres bilaterally. This is most likely due to chronic small vessel ischemic disease. No definite mass lesion is seen on this noncontrast study. There is no intracranial hemorrhage or other fluid collection. No midline shift or other form of herniation is seen. There is no hydrocephalus. Meckel's caves are prominent bilaterally, measuring approximately 2.2 x 1.1 cm in the right and 1.9 x 1.1 cm in the left. There is a partially empty sella appearance with the pituitary gland being diminutive and flattened inferiorly. Normal flow-voids are seen within the arteries of the [id number]. The orbits and paranasal sinuses appear normal. The mastoid air cells appear clear. Impression: 1. Small acute infarct of the left thalamus 2. Cerebral atrophy and chronic small vessel ischemic disease 3. Prominent Meckel's caves and empty sella appearance, raising concern for idiopathic intracranial hypertension/pseudotumor cerebri Hospital Course (1) Right sided weakness: Plan 75 F with PMH HTN, pre DM, ischemic colitis, HLD, anxiety who presents with RUE and RLE weakness. #R sided Weakness Acute CVA, left thalamus -Affecting RLE and RUE. -CTH, CTA without acute pathology. No LVO -EKG NSR Brain MRI: 1. Small acute infarct of the left thalamus 2. Cerebral atrophy and chronic small vessel ischemic disease 3. Prominent Meckel's caves and empty sella appearance, raising concern for idiopathic intracranial hypertension/pseudotumor cerebri Continue aspirin Continue increased dose of atorvastatin Monitor blood pressure closely Will need Zio patch as an outpatient Neurology consulted - Continue with aspirin 81 mg. Atorvastatin 80 mg. Strict risk factor modifications risk factor modifications Strict blood glucose control. Strict control of hypertension. Recommend a Zio patch upon discharge and follow-up with neurology within 6 weeks. Continue PT OT. Diet and lifestyle modifications. This was discussed with the patient in detail with, with stressing on medication compliance and blood pressure control #HTN continue losartan #Pre DM - A1c 6.2 #Anxiety Continue home zoloft and prn ativan #HLD DC simvastatin, switched to lipitor 80 Total Time Total Time Spent Total Time Spent (In Minutes): 40 Discharge Plan Discharge Items Patient Disposition: Home - Self-Care Reason For Visit: R SIDED WEAKNESS Discharge Diagnosis: Acute CVA Condition on Discharge: Fair Activity: Per Instructions section Non-emergency contact: Primary Care Provider and Neurologist Call non-emergency contact if: you have any medication questions and your symptoms worsen Follow-up/Referrals: Caleb Randle MD [Primary Care Provider] - Diet: Heart Healthy Addtl Attending Provider Instructions: Follow up with your primary care doctor within 1 week. The appointment was sc heduled for you for June 25 (Tuesday), at 2:40 pm. Take atorvastatin instead of simvastatin. Continue taking aspirin 81 mg daily. You will need Zio patch - to monitor your heart rhythm - this will be arranged by your primary care doctor and cardiology office. Make sure to take your blood pressure medications and monitor your blood pressure at home as well if you can. Follow up with neurology in 6 weeks. Pending Studies at Discharge: No Stand-Alone Forms: My [facility] [employer], Smoking Cessation, Medications to Prevent Stroke Medications and DC Order Prescriptions: New atorvastatin 80 mg tablet 80 mg PO DAILY Qty: 30 0RF Continued lorazepam [Ativan] 0.5 mg Tablet 0.25 mg PO HS PRN (Reason: Anxiety) Qty: 0 dicyclomine 20 mg Tablet 20 mg PO DAILY PRN (Reason: Abdominal Discomfort) Qty: 0 sertraline [Zoloft] 100 mg Tablet 50 mg PO QAM meclizine 12.5 mg Tablet 12.5 mg PO BID PRN (Reason: Vertigo) pantoprazole [Protonix] 40 mg Tablet,Delayed Release (Dr/Ec) 40 mg PO DAILYBB losartan 25 mg Tablet 25 mg PO QAM aspirin 81 mg Tablet,Delayed Release (Dr/Ec) 81 mg PO DAILY losartan 25 mg Tablet 12.5 mg PO HS Discontinued simvastatin 20 mg Tablet 20 mg PO HS Discharge Orders: Discharge Order (Routine); Ordered 06/19/25 Ordered By: Jona Leon/Other Patient Handouts: Prediabetes, 5 Steps for Eating Healthier Admission Data Admit Date/Time: 06/17/25 13:44 Attending Provider: Jona Collado Admit Provider: Pierce Barker Primary Care Provider: Caleb Randle Other Providers: Pierce Barker; Ana Quiroga; Chun Galan
[2025-06-19] MEDS ORDERED: STROKE PATIENT DISCHARGE STA (08:20)
[2025-06-19 10:33] VITALS: BP 155/74; PULSE 76; O2SAT 94
--- NOTE | 2025-06-21 09:42 | Pharmacy Report ---
Pharmacist Stroke Counseling - Date of Service June 21, 2025 - Scope: Pharmacy has been consulted to provide medication discharge counseling for this patient admitted with ischemic stroke as per the Pharmacist Discharge Counseling for Stroke Patients Protocol. - Medications on Discharge: Home Medications Medication Instructions Recorded Confirmed dicyclomine 20 mg tablet 20 mg PO DAILY PRN Abdominal 06/16/09 06/17/25 Discomfort ##0 lorazepam 0.5 mg tablet (Ativan) 0.25 mg PO HS PRN Anxiety ##0 06/16/09 06/17/25 losartan 25 mg tablet 25 mg PO QAM 06/24/18 06/17/25 meclizine 12.5 mg tablet 12.5 mg PO BID PRN Vertigo 06/24/18 06/17/25 pantoprazole 40 mg tablet,delayed 40 mg PO DAILYBB 06/24/18 06/17/25 release (Protonix) sertraline 100 mg tablet (Zoloft) 50 mg PO QAM 06/24/18 06/17/25 aspirin 81 mg tablet,delayed 81 mg PO DAILY 06/17/25 06/17/25 release losartan 25 mg tablet 12.5 mg PO HS 06/17/25 06/17/25 New Rx's Medication Instructions Recorded atorvastatin 80 mg tablet 80 mg PO DAILY #30 tabs 06/19/25 atorvastatin 80 mg tablet 80 mg PO DAILY #30 tabs 06/19/25 - Action: The above medications, specifically ones for stroke treatment/prophylaxis, have been reviewed with the patient during a telephone call today - Outcome: The patient and/or patient commercial representative(s) have demonstrated understanding of the medications. Additional comments: Patient was able to obtain atorvastatin prescription. She was previously on a statin (simvastatin). Continuing with aspirin. She had no further questions. Thank you for allowing pharmacy to be involved in the care of this patient. Please call [phone] with any additional questions
--- NOTE | 2025-06-22 05:26 | Electrocardiogram Report ---
Test Reason : Blood Pressure : */* mmHG Vent. Rate : 73 BPM Atrial Rate : 73 BPM P-R Int : 170 ms QRS Dur : 86 ms QT Int : 424 ms P-R-T Axes : 75 20 99 degrees QTcB Int : 467 ms Normal sinus rhythm Possible Anterior infarct , age undetermined Nonspecific ST and T wave abnormality Abnormal ECG When compared with ECG of 20-May-2025 14:15, Vent. rate has increased by 29 bpm Nonspecific T wave abnormality now evident in Lateral leads Confirmed by Rahul Yanez ([id number]) on 06/22/2025 5:26:31 AM Referred By: Confirmed By: Rahul Yanez
== END 2025-06-19 12:00 | disposition home health service (06) | DRG 65 ==
LOC: ED 12:18 → SUATTDRO 13:44 → 2S 13:44